=== PATIENT | male | born 1965 | race African-American/Black ===

== ENCOUNTER 2021-05-18 14:39 | Inpatient (IN) | payer OTHER ==
[~2021-05-18] VITALS: Ht 203.2 cm; Wt 130.9 kg
[2021-05-18 15:10] LABS: BASO % 0 % (0-3); EOS % 0 % (0-3); HEMATOCRIT 40.8 % (39.0-53.0); HEMOGLOBIN 13.8 g/dL (13.0-17.5); LYMPH # 0.6 x10^3/uL (1.0-4.8); LYMPH % 6 % (24-48); MEAN CORPUSCULAR HEMOGLOBIN 29 pg (25-35); MEAN CORPUSCULAR HGB CONC 34 g/dL (31-37); MEAN CORPUSCULAR VOLUME 85 fL (79-100); MONO # 0.6 x10^3/uL (0.0-1.1); MONO % 6 % (0-9); NEUT # 8.7 x10^3/uL (1.8-7.7); NEUT % 88 % (31-73); PLATELET COUNT 219 x10^3/uL (140-400); RED BLOOD COUNT 4.79 x10^6/uL (4.30-5.70); RED CELL DISTRIBUTION WIDTH 14.9 % (11.5-14.5)
--- NOTE | 2021-05-18 15:12 | RAD ---
EXAM: AP View of the chest DATE: 05/18/2021 2:56 PM INDICATION: Reason: SOAK, COVID-19 INFECTION / Spl. Instructions: / History: COMPARISON: No Prior FINDINGS/ IMPRESSION: 1. Heart is not enlarged. Aorta is tortuous. 2. Diffuse bilateral parenchymal airspace opacities likely consolidative process such as pneumonia. Covid pneumonia could have this appearance. 3. No pleural effusion or pneumothorax. Electronically signed by: Valeriano Dove MD (05/18/2021 3:10 PM) [facility]
[2021-05-18 15:19] LABS: CALCIUM 9.2 mg/dL (8.5-10.1); CREATININE 1.6 mg/dL (0.7-1.3); GFR 54.4; POTASSIUM 4.2 mmol/L (3.5-5.1)
[2021-05-18 15:25] LABS: ALBUMIN 3.1 g/dL (3.4-5.0); ALBUMIN/GLOBULIN RATIO 0.6 (1.0-1.7); MAGNESIUM 2.2 mg/dL (1.8-2.4); TOTAL BILIRUBIN 0.4 mg/dL (0.2-1.0); TOTAL PROTEIN 8.3 g/dL (6.4-8.2)
[2021-05-18] MEDS ORDERED: cefTRIAXone IV Push 1 GM VIAL. IVP ONE (15:30)
[2021-05-18] MEDS ORDERED: AZITHRMYCN 500MG IVPB FOR OMNI 250 ML IV ONE (15:30)
[2021-05-18] MEDS ORDERED: DEXAMETHASONE SOD PHOS 4 MG/ML VIAL IVP ONE (15:30)
--- NOTE | 2021-05-18 15:56 | PHYS DOC ---
Past Medical History Past Surgical History: Other Additional Past Surgical Histo: X1 STENT, X5 RT KNEE SX, X3 LT KNEE SX, X3 RT FOOT SX, X2 LT FOOT SX Smoking Status: Never Smoker Alcohol Use: None General Adult EDM: Chief Complaint: SHORTNESS OF BREATH HPI: HPI: Patient is a 55 year old male who present to ER with a history of 2 weeks cough and trouble breathing. Patient was not vaccinated for COVID-19. Patient was diagnosed with COVID-19 on , he was seen at [facility], was tested positive for COVID-19. Patient came in today because of worsening trouble breathing. His oxygen saturation was 87% on room air. Patient denies history of diabetic, denies history of smoking denies history of COPD, not on oxygen at home. Review of Systems: Review of Systems: Constitutional: Denies fever or chills. [] Eyes: Denies change in visual acuity. [] HENT: Denies nasal congestion or sore throat. [] Respiratory: Positive for cough and shortness of breath. [] Cardiovascular: Denies chest pain or edema. [] GI: Denies abdominal pain, nausea, vomiting, bloody stools or diarrhea. [] : Denies dysuria. [] Musculoskeletal: Denies back pain or joint pain. [] Integument: Denies rash. [] Neurologic: Denies headache, focal weakness or sensory changes. [] Endocrine: Denies polyuria or polydipsia. [] Lymphatic: Denies swollen glands. [] Psychiatric: Denies depression or anxiety. [] Heart Score: C/O Chest Pain: N/A Risk Factors: Risk Factors: DM, Current or recent (<one month) smoker, HTN, HLP, family history of CAD, obesity. Risk Scores: Score 0 - 3: 2.5% MACE over next 6 weeks - Discharge Home Score 4 - 6: 20.3% MACE over next 6 weeks - Admit for Clinical Observation Score 7 - 10: 72.7% MACE over next 6 weeks - Early Invasive Strategies Current Medications: Current Medications Medications (Trade) Dose Ordered Sig/Kerri Start Time Stop Time Status Last Admin Dose Admin Azithromycin 250 ml @ 250 mls/hr 1X ONCE 05/18/21 15:30 05/18/21 16:29 Ceftriaxone Sodium (Rocephin) 1 gm 1X ONCE 05/18/21 15:30 05/18/21 15:31 DC Dexamethasone Sodium Phosphate (Decadron) 10 mg 1X ONCE 05/18/21 15:30 05/18/21 15:31 DC Allergies: Allergies: Allergies Coded Allergies Type Severity Reaction Last Updated Verified lisinopril Allergy Intermediate angioedema 05/18/21 Yes ibuprofen Adverse Reaction Mild upset stomach 05/18/21 Yes Physical Exam: PE: Constitutional: Well developed, well nourished, mild acute distress, non-toxic appearance. [] HENT: Normocephalic, atraumatic, bilateral external ears normal, oropharynx moist, no oral exudates, nose normal. [] Eyes: PERRLA, EOMI, conjunctiva normal, no discharge. [] Neck: Normal range of motion, no tenderness, supple, no stridor. [] Cardiovascular:Heart rate regular rhythm, no murmur [] Lungs & Thorax: Bilateral breath sounds with decrease air movement and diffuse crackles to auscultation [] Abdomen: Bowel sounds normal, soft, no tenderness, no masses, no pulsatile masses. [] Skin: Warm, dry, no erythema, no rash. [] Back: No tenderness, no CVA tenderness. [] Extremities: No tenderness, no cyanosis, no clubbing, ROM intact, no edema. [] Neurologic: Alert and oriented X 3, normal motor function, normal sensory function, no focal deficits noted. [] Psychologic: Affect normal, judgement normal, mood normal. [] Current Patient Data: Labs: Laboratory Tests Test 05/18/21 15:00 White Blood Count 10.0 x10^3/uL Red Blood Count 4.79 x10^6/uL Hemoglobin 13.8 g/dL Hematocrit 40.8 % Mean Corpuscular Volume 85 fL Mean Corpuscular Hemoglobin 29 pg Mean Corpuscular Hemoglobin Concent 34 g/dL Red Cell Distribution Width 14.9 % Platelet Count 219 x10^3/uL Neutrophils (%) (Auto) 88 % Lymphocytes (%) (Auto) 6 % Monocytes (%) (Auto) 6 % Eosinophils (%) (Auto) 0 % Basophils (%) (Auto) 0 % Neutrophils # (Auto) 8.7 x10^3/uL Lymphocytes # (Auto) 0.6 x10^3/uL Monocytes # (Auto) 0.6 x10^3/uL Eosinophils # (Auto) 0.0 x10^3/uL Basophils # (Auto) 0.0 x10^3/uL Platelet Estimate Pending Sodium Level 138 mmol/L Potassium Level 4.2 mmol/L Chloride Level 102 mmol/L Carbon Dioxide Level 28 mmol/L Anion Gap 8 Blood Urea Nitrogen 30 mg/dL Creatinine 1.6 mg/dL Estimated GFR (Cockcroft-Gault) 54.4 BUN/Creatinine Ratio 19 Glucose Level 104 mg/dL Lactic Acid Level 1.1 mmol/L Calcium Level 9.2 mg/dL Magnesium Level 2.2 mg/dL Total Bilirubin 0.4 mg/dL Aspartate Amino Transf (AST/SGOT) 29 U/L Alanine Aminotransferase (ALT/SGPT) 22 U/L Alkaline Phosphatase 51 U/L Troponin I Quantitative < 0.017 ng/mL OF-Jqm-F-Type Natriuretic Peptide 50 pg/mL Total Protein 8.3 g/dL Albumin 3.1 g/dL Albumin/Globulin Ratio 0.6 Current Medications Medications (Trade) Dose Ordered Sig/Kerri Route PRN Reason Start Time Stop Time Status Last Admin Dose Admin Dexamethasone Sodium Phosphate (Decadron) 10 mg 1X ONCE IVP 05/18/21 15:30 05/18/21 15:31 DC Ceftriaxone Sodium (Rocephin) 1 gm 1X ONCE IVP 05/18/21 15:30 05/18/21 15:31 DC Azithromycin 250 ml @ 250 mls/hr 1X ONCE IV 05/18/21 15:30 05/18/21 16:29 Laboratory Tests Test 05/18/21 15:00 White Blood Count 10.0 x10^3/uL (4.0-11.0) Red Blood Count 4.79 x10^6/uL (4.30-5.70) Hemoglobin 13.8 g/dL (13.0-17.5) Hematocrit 40.8 % (39.0-53.0) Mean Corpuscular Volume 85 fL (79-100) Mean Corpuscular Hemoglobin 29 pg (25-35) Mean Corpuscular Hemoglobin Concent 34 g/dL (31-37) Red Cell Distribution Width 14.9 % (11.5-14.5) H Platelet Count 219 x10^3/uL (140-400) Neutrophils (%) (Auto) 88 % (31-73) H Lymphocytes (%) (Auto) 6 % (24-48) L Monocytes (%) (Auto) 6 % (0-9) Eosinophils (%) (Auto) 0 % (0-3) Basophils (%) (Auto) 0 % (0-3) Neutrophils # (Auto) 8.7 x10^3/uL (1.8-7.7) H Lymphocytes # (Auto) 0.6 x10^3/uL (1.0-4.8) L Monocytes # (Auto) 0.6 x10^3/uL (0.0-1.1) Eosinophils # (Auto) 0.0 x10^3/uL (0.0-0.7) Basophils # (Auto) 0.0 x10^3/uL (0.0-0.2) Platelet Estimate Pending Sodium Level 138 mmol/L (136-145) Potassium Level 4.2 mmol/L (3.5-5.1) Chloride Level 102 mmol/L (98-107) Carbon Dioxide Level 28 mmol/L (21-32) Anion Gap 8 (6-14) Blood Urea Nitrogen 30 mg/dL (8-26) H Creatinine 1.6 mg/dL (0.7-1.3) H Estimated GFR (Cockcroft-Gault) 54.4 BUN/Creatinine Ratio 19 (6-20) Glucose Level 104 mg/dL (70-99) H Lactic Acid Level 1.1 mmol/L (0.4-2.0) Calcium Level 9.2 mg/dL (8.5-10.1) Magnesium Level 2.2 mg/dL (1.8-2.4) Total Bilirubin 0.4 mg/dL (0.2-1.0) Aspartate Amino Transferase (AST) 29 U/L (15-37) Alanine Aminotransferase (ALT) 22 U/L (16-63) Alkaline Phosphatase 51 U/L (46-116) Troponin I Quantitative < 0.017 ng/mL (0.000-0.055) JR-Hzj-R-Type Natriuretic Peptide 50 pg/mL (0-124) Total Protein 8.3 g/dL (6.4-8.2) H Albumin 3.1 g/dL (3.4-5.0) L Albumin/Globulin Ratio 0.6 (1.0-1.7) L Laboratory Tests 05/18/21 15:00 Laboratory Tests 05/18/21 15:00 Vital Signs: Vital Signs Date Time Temp Pulse Resp B/P (MAP) Pulse Ox O2 Delivery O2 Flow Rate FiO2 05/18/21 15:00 98.7 78 35 128/75 87 Room Air 98.7 EKG: EKG: [] Radiology/Procedures: Radiology/Procedures: [][facility] [address] [place] [address] IMAGING REPORT Signed PATIENT: SRIDHAR PEREZ ACCOUNT: [id number] : 1965 LOCATION: ER AGE: 55 SEX: M EXAM STATUS: REG ER ORD. PHYSICIAN: ERIKA GROSSMAN DO REASON: SOAK, COVID-19 INFECTION PROCEDURE: CHEST AP ONLY EXAM: AP View of the chest DATE: 05/18/2021 2:56 PM INDICATION: Reason: SOAK, COVID-19 INFECTION / Spl. Instructions: / History: COMPARISON: No Prior FINDINGS/ IMPRESSION: 1. Heart is not enlarged. Aorta is tortuous. 2. Diffuse bilateral parenchymal airspace opacities likely consolidative process such as pneumonia. Covid pneumonia could have this appearance. 3. No pleural effusion or pneumothorax. Electronically signed by: Valeriano Palacios MD (05/18/2021 3:10 PM) [facility] DICTATED and SIGNED BY: VALERIANO PALACIOS MD DATE: 05/18/21 [id number] 0 Course & Med Decision Making: Course & Med Decision Making Pertinent Labs and Imaging studies reviewed. (See chart for details) Patient is a 55-year-old male who present to ER with 2-week history of cough, trouble breathing. Patient was diagnosed with COVID-19 infection 4 days ago at the [facility], came to ER today because of worsening trouble breathing. Patient oxygen saturation is 88% on room air, his chest x-ray showed diffuse bilateral infiltration consistent with COVID-19 pneumonia. Patient will need to be admitted to hospital for further evaluation and treatment. Discussed with the hospitalist on-call Dr. Siddiqui who agreed to admit the patient. Campbell Disclaimer: Campbell Disclaimer: This electronic medical record was generated, in whole or in part, using a voice recognition dictation system. Departure Departure Impression: Primary Impression: Pneumonia due to COVID-19 virus Additional Impression: Hypoxia Disposition: ADMITTED INPATIENT Admitting Physician: CHRISTIAN (Dr. Siddiqui) Condition: IMPROVED Referrals: RYAN BAÑUELOS MD (PCP) ERIKA GROSSMAN DO May 18, 2021 15:56
[2021-05-18] MEDS ORDERED: ONDANSETRON PF 4 MG/2 ML VIAL. IVP PRN (16:00)
--- NOTE | 2021-05-18 16:05 | EKG ---
[facility] [address] [place] [address] Test Date: 2021-05-18 Test Time: 15:09:30 Pat Name: SRIDHAR PEREZ Department: Room: Gender: M [employer]: : 1965 Requested By: ERIKA GROSSMAN Order Number: [id number] Reading MD: Measurements Intervals [place] Rate: 77 P: 8 CO: 158 QRS: 13 QRSD: 92 T: 13 QT: 394 QTc: 448 Interpretive Statements SINUS RHYTHM NORMAL ECG RI6.02 No previous ECG available for comparison
[2021-05-18 18:43] LABS: % BANDS 2 % (0-9); % LYMPHS 7 % (24-48); % METAS 1 % (0-0); % MONOS 4 % (0-10); % SEGS 86 % (35-66); PLT ESTIMATE ADEQUATE (ADEQUATE)
[2021-05-18 20:17] LABS: BILIRUBIN,URINE NEGATIVE (NEG); CLARITY,URINE CLEAR; COLOR,URINE YELLOW; NITRITE,URINE NEGATIVE (NEG); PH,URINE 5.5 (<5.0-8.0); PROTEIN,URINE 30 mg/dL (NEG-TRACE); UROBILINOGEN,URINE 0.2 mg/dL (0.2 mg/dL)
[2021-05-18 20:23] LABS: BACTERIA,URINE 0 /HPF (0-FEW); WBC,URINE OCC /HPF (0-4)
[2021-05-18 20:30] VITALS: BP 114/67
[2021-05-18] MEDS ORDERED: SERT50TA PO (21:22)
[2021-05-18] MEDS ORDERED: percocet (21:22)
[2021-05-18] MEDS ORDERED: TOPI50TA8 PO (21:22)
[2021-05-18] MEDS ORDERED: MELA10CA PO (21:22)
[2021-05-18] MEDS ORDERED: ASPI-630 PO (21:22)
[2021-05-18] MEDS ORDERED: ALBU2.5V8 IH (21:22)
[2021-05-18] MEDS ORDERED: BENZ100C PO (21:22)
[2021-05-18] MEDS ORDERED: AMLO-187 PO (21:22)
[2021-05-18] MEDS ORDERED: ALLO100T PO (21:22)
[2021-05-18] MEDS ORDERED: tramadol (21:22)
[2021-05-18] MEDS ORDERED: ALBUTEROL SULFATE 2.5 MG/3 ML NEBU. INH PRN (21:30)
[2021-05-18] MEDS ORDERED: HYDR-2763 PO (21:36)
[2021-05-18] MEDS ORDERED: ALBUTEROL SULFATE 8GM INHALER. INH PRN (21:45)
[2021-05-18] MEDS: guaiFENesin DM 600/30MG 1 TAB TAB.ER.12H PO PRN (22:49)
[2021-05-18] MEDS: HYDROcodone/APAP 7.5/325MG 1 TAB TABLET PO PRN (22:50)
[2021-05-18 23:00] VITALS: BP 110/55
[2021-05-19] VITALS (7 sets, daily range): BP systolic 108–145; BP diastolic 57–85
--- NOTE | 2021-05-19 07:51 | PDOC1 ---
History and Physical Date of Service: DOS: DATE: 05/19/21 TIME: 07:46 Chief Complaint: Chief Complain: Cough and shortness of breath History of Present Illness: HPI: 55 year old male who present to ER with a history of 2 weeks cough and trouble breathing. Patient was not vaccinated for COVID-19. Patient was diagnosed with COVID-19 on , he was seen at the [facility], was tested positive for COVID-19. Patient came in today because of worsening trouble breathing. His oxygen saturation was 87% on room air. Patient denies history of diabetic, denies history of smoking denies history of COPD, not on oxygen at home. Past Medical/Surgical History: PMH/PSH: Past Surgical History: X1 STENT, X5 RT KNEE SX, X3 LT KNEE SX, X3 RT FOOT SX, X2 LT FOOT SX Allergies: Allergies: Coded Allergies: lisinopril (Verified Allergy, Intermediate, angioedema, 05/18/21) ibuprofen (Verified Adverse Reaction, Mild, upset stomach, 05/18/21) Family History: Family History: Reviewed with no relevant findings Social History: Social History: Smoking Status: Never Smoker Alcohol Use: None Current Medications: Current Medications Current Medications Dexamethasone Sodium Phosphate (Decadron) 10 mg 1X ONCE IVP Last administered on 05/18/21at 16:02; Start 05/18/21 at 15:30; Stop 05/18/21 at 15:31; Status DC Ceftriaxone Sodium (Rocephin) 1 gm 1X ONCE IVP Last administered on 05/18/21at 16:04; Start 05/18/21 at 15:30; Stop 05/18/21 at 15:31; Status DC Azithromycin 250 ml @ 250 mls/hr 1X ONCE IV Last administered on 05/18/21at 16:11; Start 05/18/21 at 15:30; Stop 05/18/21 at 16:29; Status DC Ondansetron HCl (Zofran) 4 mg PRN Q8HRS PRN IVP NAUSEA/VOMITING; Start 05/18/21 at 16:00; Stop 05/19/21 at 15:59 Albuterol Sulfate (Ventolin Neb Soln) 2 mg Q4HRS W/A PRN INH wheezing; Start 05/18/21 at 21:30; Stop 05/18/21 at 21:42; Status DC Allopurinol (Zyloprim) 100 mg BID PO ; Start 05/19/21 at 09:00 Amlodipine Besylate (Norvasc) 10 mg DAILY PO ; Start 05/19/21 at 09:00 Aspirin (Aspirin Chewable) 81 mg DAILY PO ; Start 05/19/21 at 09:00 Sertraline HCl (Zoloft) 50 mg DAILY PO ; Start 05/19/21 at 09:00 Non-Formulary Medication (Melatonin ) 1 cap QHS PO ; Start 05/19/21 at 21:00; Status UNV Topiramate (Topamax) 150 mg HS PO ; Start 05/19/21 at 21:00 Guaifenesin (MUCINEX ER with DM) 1 tab PRN BID PRN PO cough Last administered on 05/18/21at 22:49; Start 05/18/21 at 21:45 Albuterol Sulfate (Ventolin Hfa) 2 puff PRN Q4HRS PRN INH SOA Last administered on 05/18/21at 22:49; Start 05/18/21 at 21:45 Acetaminophen/ Hydrocodone Bitart (Lortab 7.5/325) 1 tab PRN Q6HRS PRN PO PAIN Last administered on 05/18/21at 22:50; Start 05/18/21 at 22:30 Active Scripts Active Reported Hydrocodone-Acetamin 7.5-325 (Hydrocodone/Acetaminophen) 1 Each Tablet 1 Each PO Q6HRS PRN [percocet] Unknown Strength Unknown Dose [tramadol] Unknown Strength Unknown Dose Melatonin 10 Mg Capsule 1 Cap PO QHS 30 Days Topiramate 50 Mg Tablet 3 Tab PO HS 30 Days Zoloft (Sertraline Hcl) 50 Mg Tablet 1 Tab PO DAILY Amlodipine Besylate 10 Mg Tablet 10 Mg PO DAILY Allopurinol 100 Mg Tablet 1 Tab PO BID Tessalon Perle (Benzonatate) 100 Mg Capsule 1 Cap PO DAILY Proair Hfa Inhaler (Albuterol Sulfate) 8.5 Gm Hfa.aer.ad 2 Puff IH PRN Q4-6HRS PRN 21 Days Aspirin 81 Mg Tab.chew 81 Mg PO DAILY ROS: Review of Systems Review of System REVIEW OF SYSTEMS: GENERAL: Denies weakness SKIN: No bruising, hair changes or rashes. EYES: No blurred, double or loss of vision. NOSE AND THROAT: No history of nosebleeds, hoarseness or sore throat. HEART: No history of palpitations, chest pain or shortness of breath on exertion. LUNGS: Denies cough, hemoptysis, wheezing or shortness of breath. GASTROINTESTINAL: Denies changes in appetite, nausea, vomiting, diarrhea or constipation. GENITOURINARY: No history of frequency, urgency, hesitancy or nocturia. NEUROLOGIC: Denies history of numbness, tingling, or tremor. PSYCHIATRIC: No history of panic, anxiety or depression. ENDOCRINE: No history of heat or cold intolerance, polyuria or polydipsia. EXTREMITIES: Denies joint pain, pain on walking or stiffness. Physical Exam: Vital Signs: Vital Signs Date Time Temp Pulse Resp B/P (MAP) Pulse Ox O2 Delivery O2 Flow Rate FiO2 05/19/21 03:00 98.5 65 24 108/57 (74) 99 Nasal Cannula 4.0 98.5 Physcial Exam: General: Well developed, well nourished, no acute distress, well appearing HEENT: Pupils equally round and reactive to light, EOMI, no discharge, normal conjunctiva Neck: Supple, no nuchal rigidity, no JVD, trachea midline, no tenderness Cardiac: RRR, no murmurs, no gallops, no rubs Chest/Lungs: CTAB, no wheeze, no rhonchi, no crackles Abdomen: soft, non-distended, no guarding, no peritoneal signs, non-tender Back: No tenderness Extremities: no edema, pulses intact, non-tender,capillary refill <3 sec bilateral upper and lower extremities, Neuro: Alert and oriented x 4, no focal deficits, normal speech Labs: Labs: Laboratory Tests Test 05/18/21 15:00 05/18/21 20:05 White Blood Count 10.0 x10^3/uL (4.0-11.0) Red Blood Count 4.79 x10^6/uL (4.30-5.70) Hemoglobin 13.8 g/dL (13.0-17.5) Hematocrit 40.8 % (39.0-53.0) Mean Corpuscular Volume 85 fL (79-100) Mean Corpuscular Hemoglobin 29 pg (25-35) Mean Corpuscular Hemoglobin Concent 34 g/dL (31-37) Red Cell Distribution Width 14.9 % (11.5-14.5) Platelet Count 219 x10^3/uL (140-400) Neutrophils (%) (Auto) 88 % (31-73) Lymphocytes (%) (Auto) 6 % (24-48) Monocytes (%) (Auto) 6 % (0-9) Eosinophils (%) (Auto) 0 % (0-3) Basophils (%) (Auto) 0 % (0-3) Neutrophils # (Auto) 8.7 x10^3/uL (1.8-7.7) Lymphocytes # (Auto) 0.6 x10^3/uL (1.0-4.8) Monocytes # (Auto) 0.6 x10^3/uL (0.0-1.1) Eosinophils # (Auto) 0.0 x10^3/uL (0.0-0.7) Basophils # (Auto) 0.0 x10^3/uL (0.0-0.2) Segmented Neutrophils % 86 % (35-66) Band Neutrophils % 2 % (0-9) Lymphocytes % 7 % (24-48) Monocytes % 4 % (0-10) Metamyelocytes % 1 % (0-0) Platelet Estimate Adequate (ADEQUATE) Sodium Level 138 mmol/L (136-145) Potassium Level 4.2 mmol/L (3.5-5.1) Chloride Level 102 mmol/L (98-107) Carbon Dioxide Level 28 mmol/L (21-32) Anion Gap 8 (6-14) Blood Urea Nitrogen 30 mg/dL (8-26) Creatinine 1.6 mg/dL (0.7-1.3) Estimated GFR (Cockcroft-Gault) 54.4 BUN/Creatinine Ratio 19 (6-20) Glucose Level 104 mg/dL (70-99) Lactic Acid Level 1.1 mmol/L (0.4-2.0) Calcium Level 9.2 mg/dL (8.5-10.1) Magnesium Level 2.2 mg/dL (1.8-2.4) Total Bilirubin 0.4 mg/dL (0.2-1.0) Aspartate Amino Transf (AST/SGOT) 29 U/L (15-37) Alanine Aminotransferase (ALT/SGPT) 22 U/L (16-63) Alkaline Phosphatase 51 U/L (46-116) Troponin I Quantitative < 0.017 ng/mL (0.000-0.055) PB-Qty-J-Type Natriuretic Peptide 50 pg/mL (0-124) Total Protein 8.3 g/dL (6.4-8.2) Albumin 3.1 g/dL (3.4-5.0) Albumin/Globulin Ratio 0.6 (1.0-1.7) Urine Collection Type Unknown Urine Color Yellow Urine Clarity Clear Urine pH 5.5 (<5.0-8.0) Urine Specific Lynn 1.025 (1.000-1.030) Urine Protein 30 mg/dL (NEG-TRACE) Urine Glucose (UA) Negative mg/dL (NEG) Urine Ketones (Stick) Negative mg/dL (NEG) Urine Blood Trace (NEG) Urine Nitrite Negative (NEG) Urine Bilirubin Negative (NEG) Urine Urobilinogen Dipstick 0.2 mg/dL (0.2 mg/dL) Urine Leukocyte Esterase Negative (NEG) Urine RBC 1-2 /HPF (0-2) Urine WBC Occ /HPF (0-4) Urine Squamous Epithelial Cells Occ /LPF Urine Bacteria 0 /HPF (0-FEW) Urine Mucus Mod /LPF Laboratory Tests Test 05/18/21 15:00 05/18/21 20:05 White Blood Count 10.0 x10^3/uL (4.0-11.0) Red Blood Count 4.79 x10^6/uL (4.30-5.70) Hemoglobin 13.8 g/dL (13.0-17.5) Hematocrit 40.8 % (39.0-53.0) Mean Corpuscular Volume 85 fL (79-100) Mean Corpuscular Hemoglobin 29 pg (25-35) Mean Corpuscular Hemoglobin Concent 34 g/dL (31-37) Red Cell Distribution Width 14.9 % (11.5-14.5) Platelet Count 219 x10^3/uL (140-400) Neutrophils (%) (Auto) 88 % (31-73) Lymphocytes (%) (Auto) 6 % (24-48) Monocytes (%) (Auto) 6 % (0-9) Eosinophils (%) (Auto) 0 % (0-3) Basophils (%) (Auto) 0 % (0-3) Neutrophils # (Auto) 8.7 x10^3/uL (1.8-7.7) Lymphocytes # (Auto) 0.6 x10^3/uL (1.0-4.8) Monocytes # (Auto) 0.6 x10^3/uL (0.0-1.1) Eosinophils # (Auto) 0.0 x10^3/uL (0.0-0.7) Basophils # (Auto) 0.0 x10^3/uL (0.0-0.2) Segmented Neutrophils % 86 % (35-66) Band Neutrophils % 2 % (0-9) Lymphocytes % 7 % (24-48) Monocytes % 4 % (0-10) Metamyelocytes % 1 % (0-0) Platelet Estimate Adequate (ADEQUATE) Sodium Level 138 mmol/L (136-145) Potassium Level 4.2 mmol/L (3.5-5.1) Chloride Level 102 mmol/L (98-107) Carbon Dioxide Level 28 mmol/L (21-32) Anion Gap 8 (6-14) Blood Urea Nitrogen 30 mg/dL (8-26) Creatinine 1.6 mg/dL (0.7-1.3) Estimated GFR (Cockcroft-Gault) 54.4 BUN/Creatinine Ratio 19 (6-20) Glucose Level 104 mg/dL (70-99) Lactic Acid Level 1.1 mmol/L (0.4-2.0) Calcium Level 9.2 mg/dL (8.5-10.1) Magnesium Level 2.2 mg/dL (1.8-2.4) Total Bilirubin 0.4 mg/dL (0.2-1.0) Aspartate Amino Transf (AST/SGOT) 29 U/L (15-37) Alanine Aminotransferase (ALT/SGPT) 22 U/L (16-63) Alkaline Phosphatase 51 U/L (46-116) Troponin I Quantitative < 0.017 ng/mL (0.000-0.055) DX-Ndk-G-Type Natriuretic Peptide 50 pg/mL (0-124) Total Protein 8.3 g/dL (6.4-8.2) Albumin 3.1 g/dL (3.4-5.0) Albumin/Globulin Ratio 0.6 (1.0-1.7) Urine Collection Type Unknown Urine Color Yellow Urine Clarity Clear Urine pH 5.5 (<5.0-8.0) Urine Specific Lynn 1.025 (1.000-1.030) Urine Protein 30 mg/dL (NEG-TRACE) Urine Glucose (UA) Negative mg/dL (NEG) Urine Ketones (Stick) Negative mg/dL (NEG) Urine Blood Trace (NEG) Urine Nitrite Negative (NEG) Urine Bilirubin Negative (NEG) Urine Urobilinogen Dipstick 0.2 mg/dL (0.2 mg/dL) Urine Leukocyte Esterase Negative (NEG) Urine RBC 1-2 /HPF (0-2) Urine WBC Occ /HPF (0-4) Urine Squamous Epithelial Cells Occ /LPF Urine Bacteria 0 /HPF (0-FEW) Urine Mucus Mod /LPF Images: Images PROCEDURE: CHEST AP ONLY IMPRESSION: 1. Heart is not enlarged. Aorta is tortuous. 2. Diffuse bilateral parenchymal airspace opacities likely consolidative process such as pneumonia. Covid pneumonia could have this appearance. 3. No pleural effusion or pneumothorax. Assessment/Plan Assessment/Plan Acute hypoxic respiratory failure COVID-19 pneumonia DARIANA due to vasomotor nephropathy Obesity class I Admit to hospitalist service for further management Pulmonology consult Continue IV thiamine and vitamin C IV Solu-Medrol Daily Pending ferritin, LDH, CRP, D-dimer labs Titrate O2 supplementation to maintain O2 saturation greater than 92% Lovenox for DVT prophylaxis Protonix while on steroids GI prophylaxis ADA diet Full code Discussed with RN and SW Disposition inpatient management as above Surrogate decision maker is the Justifications for Admission Other Justification NESTOR THEODORE MD May 19, 2021 07:51
[2021-05-19] MEDS ORDERED: PROCHLORPERAZINE 10 MG/2 ML VIAL. IV PRN (08:00)
[2021-05-19] MEDS ORDERED: DEXTROSE 50% 25 GM / 50ML DISP.SYRIN. IV PRN (08:00)
[2021-05-19] MEDS ORDERED: ONDANSETRON PF 4 MG/2 ML VIAL. IVP PRN (08:00)
[2021-05-19] MEDS ORDERED: ACETAMINOPHEN 325 MG TABLET. PO PRN (08:00)
[2021-05-19] MEDS: ASPIRIN CHEWABLE 81 MG TABLET. PO SCH (09:54)
[2021-05-19] MEDS: THIAMINE 100 MG TABLET. PO SCH (09:54)
[2021-05-19] MEDS: DOCUSATE SODIUM 100 MG CAPSULE. PO PRN (09:54)
[2021-05-19] MEDS: methylPREDNISolone SOD SUCC PF 125 MG/2 ML VIAL. IV SCH ×3 (09:54→21:37)
[2021-05-19] MEDS: ALLOPURINOL 100 MG TABLET. PO SCH ×2 (09:55→21:36)
[2021-05-19] MEDS: ASCORBIC ACID 1,000 MG TABLET PO SCH ×3 (09:55→21:36)
[2021-05-19] MEDS: ZINC SULFATE 220 MG CAPSULE. PO SCH (09:55)
[2021-05-19] MEDS: SERTRALINE 50 MG TABLET. PO SCH (09:55)
[2021-05-19] MEDS: guaiFENesin DM 600/30MG 1 TAB TAB.ER.12H PO PRN (09:55)
[2021-05-19] MEDS: ENOXAPARIN 40 MG/0.4 ML SYRINGE. SQ SCH (09:56)
--- NOTE | 2021-05-19 11:47 | NUR ---
SW following. Discussed with RN, pt from home with , 5L (does not use oxygen at home), regular diet. COVID-19 positive. RN advised no SW needs at this time. SW will continue to follow.
[2021-05-19] MEDS: PANTOPRAZOLE 40 MG TABLET.DR. PO SCH (14:37)
[2021-05-19] MEDS ORDERED: NON FORMULARY ITEM (Melatonin 1 CAP) PO SCH (21:00)
[2021-05-19] MEDS: TOPIRAMATE 100 MG TABLET. PO SCH (21:36)
[2021-05-20 03:00] VITALS: BP 113/64
[2021-05-20] MEDS: methylPREDNISolone SOD SUCC PF 125 MG/2 ML VIAL. IV SCH ×3 (05:49→22:10)
[2021-05-20 07:00] VITALS: BP 136/63
[2021-05-20 07:09] LABS: BASO % 0 % (0-3); EOS % 0 % (0-3); HEMATOCRIT 38.9 % (39.0-53.0); HEMOGLOBIN 12.7 g/dL (13.0-17.5); LYMPH # 0.8 x10^3/uL (1.0-4.8); LYMPH % 5 % (24-48); MEAN CORPUSCULAR HEMOGLOBIN 28 pg (25-35); MEAN CORPUSCULAR HGB CONC 33 g/dL (31-37); MEAN CORPUSCULAR VOLUME 86 fL (79-100); MONO # 0.9 x10^3/uL (0.0-1.1); MONO % 6 % (0-9); NEUT # 14.2 x10^3/uL (1.8-7.7); NEUT % 89 % (31-73); PLATELET COUNT 257 x10^3/uL (140-400); RED BLOOD COUNT 4.54 x10^6/uL (4.30-5.70); RED CELL DISTRIBUTION WIDTH 15.3 % (11.5-14.5); WHITE BLOOD COUNT 15.9 x10^3/uL (4.0-11.0)
[2021-05-20 07:27] LABS: CALCIUM 9.4 mg/dL (8.5-10.1); CREATININE 1.4 mg/dL (0.7-1.3); GFR 63.4; MAGNESIUM 2.4 mg/dL (1.8-2.4); PHOSPHORUS 4.2 mg/dL (2.6-4.7); POTASSIUM 4.6 mmol/L (3.5-5.1)
[2021-05-20] MEDS: SERTRALINE 50 MG TABLET. PO SCH (08:57)
[2021-05-20] MEDS: ZINC SULFATE 220 MG CAPSULE. PO SCH (08:57)
[2021-05-20] MEDS: ASCORBIC ACID 1,000 MG TABLET PO SCH ×3 (08:57→22:10)
[2021-05-20] MEDS: ASPIRIN CHEWABLE 81 MG TABLET. PO SCH (08:57)
[2021-05-20] MEDS: THIAMINE 100 MG TABLET. PO SCH (08:57)
[2021-05-20] MEDS: PANTOPRAZOLE 40 MG TABLET.DR. PO SCH (08:58)
[2021-05-20] MEDS: ENOXAPARIN 40 MG/0.4 ML SYRINGE. SQ SCH (08:58)
[2021-05-20] MEDS: HYDROcodone/APAP 7.5/325MG 1 TAB TABLET PO PRN (08:58)
[2021-05-20] MEDS: ALLOPURINOL 100 MG TABLET. PO SCH ×2 (08:59→22:11)
[2021-05-20 11:00] VITALS: BP 121/60
[2021-05-20] MEDS ORDERED: REMDESIVIR LOAD in IV NORMAL SALINE 250ML TV IV ONE (12:00)
--- NOTE | 2021-05-20 13:12 | PDOC ---
[employer] PROGRESS NOTE Date of Service DOS: DATE: 05/20/21 TIME: 13:10 Chief Complaint Chief Complaint Acute hypoxic respiratory failure COVID-19 pneumonia DARIANA due to vasomotor nephropathy Obesity class I Initiate Remdesivir today Pulmonology consult Continue IV thiamine and vitamin C IV Solu-Medrol Daily Pending ferritin, LDH, CRP, D-dimer labs Titrate O2 supplementation to maintain O2 saturation greater than 92% Lovenox for DVT prophylaxis Protonix while on steroids GI prophylaxis ADA diet Full code Discussed with RN and SW Disposition inpatient management as above Surrogate decision maker is the History of Present Illness History of Present Illness 55 year old male who present to ER with a history of 2 weeks cough and trouble breathing. Patient was not vaccinated for COVID-19. Patient was diagnosed with COVID-19 on , he was seen at the [place], was tested positive for COVID-19. Patient came in today because of worsening trouble breathing. His oxygen saturation was 87% on room air. Patient denies history of diabetic, denies history of smoking denies history of COPD, not on oxygen at home. 05/20/2021 No acute events overnight. Patient now requiring 8 L nasal cannula to saturate 97%. Patient is more short of breath. Remdesivir initiated. No concerns natalie sing at this time. Patient's chart, labs, images were reviewed and discussed with RN Vitals/I&O Vitals/I&O: Vital Signs Date Time Temp Pulse Resp B/P (MAP) Pulse Ox O2 Delivery O2 Flow Rate FiO2 05/20/21 11:00 98.1 67 18 121/60 (80) 98 Nasal Cannula 8.0 98.1 I & O 05/19/21 05/19/21 05/20/21 15:00 23:00 07:00 Intake Total 120 ml 300 ml 500 ml Output Total 300 ml Balance 120 ml 300 ml 200 ml Physical Exam General: Alert, Oriented X3, Cooperative Heart: Regular rate Lungs: Clear Abdomen: Normal bowel sounds Extremities: No clubbing Skin: No rashes Labs Labs: Laboratory Tests Test 05/20/21 06:45 White Blood Count 15.9 x10^3/uL (4.0-11.0) Red Blood Count 4.54 x10^6/uL (4.30-5.70) Hemoglobin 12.7 g/dL (13.0-17.5) Hematocrit 38.9 % (39.0-53.0) Mean Corpuscular Volume 86 fL (79-100) Mean Corpuscular Hemoglobin 28 pg (25-35) Mean Corpuscular Hemoglobin Concent 33 g/dL (31-37) Red Cell Distribution Width 15.3 % (11.5-14.5) Platelet Count 257 x10^3/uL (140-400) Neutrophils (%) (Auto) 89 % (31-73) Lymphocytes (%) (Auto) 5 % (24-48) Monocytes (%) (Auto) 6 % (0-9) Eosinophils (%) (Auto) 0 % (0-3) Basophils (%) (Auto) 0 % (0-3) Neutrophils # (Auto) 14.2 x10^3/uL (1.8-7.7) Lymphocytes # (Auto) 0.8 x10^3/uL (1.0-4.8) Monocytes # (Auto) 0.9 x10^3/uL (0.0-1.1) Eosinophils # (Auto) 0.0 x10^3/uL (0.0-0.7) Basophils # (Auto) 0.0 x10^3/uL (0.0-0.2) Sodium Level 140 mmol/L (136-145) Potassium Level 4.6 mmol/L (3.5-5.1) Chloride Level 105 mmol/L (98-107) Carbon Dioxide Level 27 mmol/L (21-32) Anion Gap 8 (6-14) Blood Urea Nitrogen 34 mg/dL (8-26) Creatinine 1.4 mg/dL (0.7-1.3) Estimated GFR (Cockcroft-Gault) 63.4 Glucose Level 143 mg/dL (70-99) Calcium Level 9.4 mg/dL (8.5-10.1) Phosphorus Level 4.2 mg/dL (2.6-4.7) Magnesium Level 2.4 mg/dL (1.8-2.4) Assessment and Plan Assessmemt and Plan Problems Medical Problems: (1) Hypoxia Status: Acute (2) Pneumonia due to COVID-19 virus Status: Acute Comment Review of Relevant I have reviewed the following items fawn (where applicable) has been applied. Medications: Current Medications Medications (Trade) Dose Ordered Sig/Kerri Route PRN Reason Start Time Stop Time Status Last Admin Dose Admin Topiramate (Topamax) 150 mg HS PO 05/19/21 21:00 05/19/21 21:36 Pantoprazole Sodium (Protonix) 40 mg DAILYAC PO 05/19/21 14:00 05/20/21 08:58 Remdesivir 200 mg/ Sodium Chloride 210 ml @ 210 mls/hr 1X ONCE IV 05/20/21 12:00 05/20/21 12:59 DC 05/20/21 12:04 Justifications for Admission Other Justification COVID-19 pneumonia NESTOR THEODORE MD May 20, 2021 13:12
[2021-05-20 15:00] VITALS: BP 146/67
[2021-05-20 19:00] VITALS: BP 127/84
[2021-05-20] MEDS: TOPIRAMATE 100 MG TABLET. PO SCH (22:11)
[2021-05-20 23:11] VITALS: BP 125/82
[2021-05-21 03:00] VITALS: BP 114/71
[2021-05-21] MEDS: methylPREDNISolone SOD SUCC PF 125 MG/2 ML VIAL. IV SCH ×3 (06:18→21:55)
[2021-05-21 07:00] VITALS: BP 116/75
[2021-05-21 10:26] LABS: BASO % 0 % (0-3); EOS % 0 % (0-3); HEMATOCRIT 42.3 % (39.0-53.0); HEMOGLOBIN 13.9 g/dL (13.0-17.5); LYMPH # 0.7 x10^3/uL (1.0-4.8); LYMPH % 4 % (24-48); MEAN CORPUSCULAR HEMOGLOBIN 28 pg (25-35); MEAN CORPUSCULAR HGB CONC 33 g/dL (31-37); MEAN CORPUSCULAR VOLUME 86 fL (79-100); MONO % 5 % (0-9); NEUT # 16.2 x10^3/uL (1.8-7.7); NEUT % 90 % (31-73); PLATELET COUNT 312 x10^3/uL (140-400); RED BLOOD COUNT 4.92 x10^6/uL (4.30-5.70); RED CELL DISTRIBUTION WIDTH 15.5 % (11.5-14.5); WHITE BLOOD COUNT 17.9 x10^3/uL (4.0-11.0)
[2021-05-21] MEDS: ASCORBIC ACID 1,000 MG TABLET PO SCH ×3 (10:41→21:54)
[2021-05-21] MEDS: ZINC SULFATE 220 MG CAPSULE. PO SCH (10:41)
[2021-05-21] MEDS: ASPIRIN CHEWABLE 81 MG TABLET. PO SCH (10:41)
[2021-05-21] MEDS: THIAMINE 100 MG TABLET. PO SCH (10:41)
[2021-05-21] MEDS: guaiFENesin DM 600/30MG 1 TAB TAB.ER.12H PO PRN (10:41)
[2021-05-21] MEDS: HYDROcodone/APAP 7.5/325MG 1 TAB TABLET PO PRN ×2 (10:42→21:56)
[2021-05-21] MEDS: PANTOPRAZOLE 40 MG TABLET.DR. PO SCH (10:43)
[2021-05-21] MEDS: ALLOPURINOL 100 MG TABLET. PO SCH ×2 (10:44→21:54)
[2021-05-21] MEDS: SERTRALINE 50 MG TABLET. PO SCH (10:44)
[2021-05-21] MEDS: ENOXAPARIN 40 MG/0.4 ML SYRINGE. SQ SCH (10:44)
[2021-05-21] MEDS: DOCUSATE SODIUM 100 MG CAPSULE. PO PRN (10:44)
[2021-05-21 10:49] LABS: CALCIUM 9.8 mg/dL (8.5-10.1); CREATININE 1.5 mg/dL (0.7-1.3); GFR 58.6; MAGNESIUM 2.8 mg/dL (1.8-2.4); POTASSIUM 4.8 mmol/L (3.5-5.1)
[2021-05-21 11:00] VITALS: BP 131/78
[2021-05-21] MEDS: REMDESIVIR 100mg in NORMAL SALINE 250ML X 4 DAYS IV SCH (12:49)
[2021-05-21] MEDS ORDERED: guaiFENesin/CODEINE 100mg/10mg 5 ML LIQUID PO PRN (13:00)
[2021-05-21] MEDS ORDERED: PIP/TAZO PER PHARMACY MC PRN (13:00)
--- NOTE | 2021-05-21 13:12 | PDOC ---
[employer] PROGRESS NOTE Date of Service DOS: DATE: 05/21/21 TIME: 13:11 Chief Complaint Chief Complaint Acute hypoxic respiratory failure COVID-19 pneumonia DARIANA due to vasomotor nephropathy Obesity class I Continue remdesivir Adding Zosyn and azithromycin today Pulmonology consult Continue IV thiamine and vitamin C IV Solu-Medrol Daily Pending ferritin, LDH, CRP, D-dimer labs Titrate O2 supplementation to maintain O2 saturation greater than 92% Lovenox for DVT prophylaxis Protonix while on steroids GI prophylaxis ADA diet Full code Discussed with RN and SW Disposition inpatient management as above Surrogate decision maker is the History of Present Illness History of Present Illness 55 year old male who present to ER with a history of 2 weeks cough and trouble breathing. Patient was not vaccinated for COVID-19. Patient was diagnosed with COVID-19 on , he was seen at the [place], was tested positive for COVID-19. Patient came in today because of worsening trouble breathing. His oxygen saturation was 87% on room air. Patient denies history of diabetic, denies history of smoking denies history of COPD, not on oxygen at home. 05/20/2021 No acute events overnight. Patient now requiring 8 L nasal cannula to saturate 97%. Patient is more short of breath. Remdesivir initiated. No concerns nursing at this time. Patient's chart, labs, images were reviewed and discussed with RN 05/21/12 Patient seen and examined at bedside. He was on 6 L nasal cannula saturating well. Was still feeling more fatigued and just generalized illness. Having some new onset upper abdominal pain, will start Pepcid and as needed GI cocktail. Adding antibiotics today today, repeat chest x-ray, plan of care discussed with resident. Vitals/I&O Vitals/I&O: Vital Signs Date Time Temp Pulse Resp B/P (MAP) Pulse Ox O2 Delivery O2 Flow Rate FiO2 05/21/21 12:00 96 Nasal Cannula 7.0 05/21/21 11:00 97.8 85 18 131/78 (95) 97.8 I & O 05/20/21 05/20/21 05/21/21 15:00 23:00 07:00 Intake Total 610 ml 200 ml 250 ml Output Total 300 ml Balance 610 ml -100 ml 250 ml Physical Exam General: Alert, Oriented X3, Cooperative Heart: Regular rate Lungs: Clear Abdomen: Normal bowel sounds Extremities: No clubbing Skin: No rashes Labs Labs: Laboratory Tests Test 05/21/21 10:05 White Blood Count 17.9 x10^3/uL (4.0-11.0) Red Blood Count 4.92 x10^6/uL (4.30-5.70) Hemoglobin 13.9 g/dL (13.0-17.5) Hematocrit 42.3 % (39.0-53.0) Mean Corpuscular Volume 86 fL (79-100) Mean Corpuscular Hemoglobin 28 pg (25-35) Mean Corpuscular Hemoglobin Concent 33 g/dL (31-37) Red Cell Distribution Width 15.5 % (11.5-14.5) Platelet Count 312 x10^3/uL (140-400) Neutrophils (%) (Auto) 90 % (31-73) Lymphocytes (%) (Auto) 4 % (24-48) Monocytes (%) (Auto) 5 % (0-9) Eosinophils (%) (Auto) 0 % (0-3) Basophils (%) (Auto) 0 % (0-3) Neutrophils # (Auto) 16.2 x10^3/uL (1.8-7.7) Lymphocytes # (Auto) 0.7 x10^3/uL (1.0-4.8) Monocytes # (Auto) 1.0 x10^3/uL (0.0-1.1) Eosinophils # (Auto) 0.0 x10^3/uL (0.0-0.7) Basophils # (Auto) 0.0 x10^3/uL (0.0-0.2) Sodium Level 142 mmol/L (136-145) Potassium Level 4.8 mmol/L (3.5-5.1) Chloride Level 105 mmol/L (98-107) Carbon Dioxide Level 24 mmol/L (21-32) Anion Gap 13 (6-14) Blood Urea Nitrogen 47 mg/dL (8-26) Creatinine 1.5 mg/dL (0.7-1.3) Estimated GFR (Cockcroft-Gault) 58.6 Glucose Level 163 mg/dL (70-99) Calcium Level 9.8 mg/dL (8.5-10.1) Magnesium Level 2.8 mg/dL (1.8-2.4) Review of Systems Review of Systems: Shortness of breath, stomach pain, weakness Assessment and Plan Assessmemt and Plan Problems Medical Problems: (1) Hypoxia Status: Acute (2) Pneumonia due to COVID-19 virus Status: Acute Comment Review of Relevant I have reviewed the following items fawn (where applicable) has been applied. Medications: Current Medications Medications (Trade) Dose Ordered Sig/Kerri Route PRN Reason Start Time Stop Time Status Last Admin Dose Admin Remdesivir 100 mg/ Sodium Chloride 230 ml @ 460 mls/hr Q24H IV 05/21/21 12:00 05/24/21 12:29 05/21/21 12:49 Justifications for Admission Other Justification COVID-19 pneumonia FENG GARCIA MD May 21, 2021 13:12
[2021-05-21] MEDS: IV NORMAL SALINE 1000ML BAG 1,000 ML IV SCH (13:19)
[2021-05-21] MEDS: PIPERACILLIN/TAZOBACTAM 3.375 GM in IV NORMAL SALINE 50ML 50 ML IV SCH ×2 (13:19→17:30)
--- NOTE | 2021-05-21 13:25 | NUR ---
SW following. Discussed with RN, pt still requiring oxygen at 9L with simple mask. COVID-19 positive. SW will continue to follow.
[2021-05-21] MEDS: FAMOTIDINE 20 MG TABLET. PO SCH (13:28)
[2021-05-21 15:00] VITALS: BP 136/78
[2021-05-21] MEDS: AZITHROMYCIN 250 MG TABLET. PO SCH (15:01)
--- NOTE | 2021-05-21 15:49 | RAD ---
XR CHEST 1V History: Reason: covid, increasing O2 req / Spl. Instructions: / History: Comparison: May 18, 2021 Findings: Multifocal pulmonary opacities, unchanged. No pleural effusion. No pneumothorax. Unchanged heart size . Impression: 1. Stable appearance of the chest compared to prior. Electronically signed by: Kumar Washington DO (05/21/2021 3:47 PM) [id number]
--- NOTE | 2021-05-21 16:26 | CONS ---
DATE OF CONSULTATION: 05/21/2021 PULMONARY CONSULTATION ATTENDING PHYSICIAN: Dr. Siddiqui. REASON FOR CONSULTATION: Respiratory failure, COVID-19 viral pneumonia. HISTORY OF PRESENT ILLNESS: The patient is a 55-year-old with a BMI of 33.8. He has no significant tobacco history. The patient was diagnosed with COVID-19 last at [place]. The patient was brought in ____ with dyspnea. He was hypoxic with 87% saturation on room air. He has some nonspecific chest pain. He has a cough. Denies any headache, nausea, vomiting, but did complain of some diarrhea. Chest x-ray was reviewed. The patient has diffuse bilateral parenchymal infiltrates. The patient's chest x-ray has been repeated today. I have reviewed the chest x-ray and it shows bilateral patchy and diffuse interstitial infiltrates consistent with viral pneumonia. Currently, he is on 6 liters of oxygen via nasal cannula and does not appear to be in any obvious respiratory distress. I have done this consultation via Telemedicine. PAST MEDICAL HISTORY: Significant for history of CAD status post stent. No significant tobacco history. PAST SURGICAL HISTORY: Surgeries including stent, right knee surgery, left knee surgery. ALLERGIES: IBUPROFEN, LISINOPRIL. MEDICATIONS: Reviewed as listed in the MRAD including Zosyn and remdesivir along with Solu-Medrol. REVIEW OF SYSTEMS: A 12-point system review obtained. Pertinent positives discussed in my presence illness, otherwise noncontributory. All systems that were negative as well. SOCIAL HISTORY: Nonsmoker. PHYSICAL EXAMINATION: VITAL SIGNS: Reviewed. He is afebrile. Pulse ox is 96% on 6 liters. GENERAL: He does not appear to be in any obvious respiratory distress on visual exam. ABDOMEN: Obese. EXTREMITIES: No leg edema. LABORATORY DATA: Reviewed. White cell count 17.9, hemoglobin 13.9, platelets are 300. BUN 47, creatinine of 1.5. IMPRESSION: 1. Acute hypoxic respiratory failure secondary to COVID-19 viral pneumonia. 2. Abnormal chest x-ray with bilateral patchy interstitial infiltrates consistent with COVID-19 viral pneumonia. 3. No significant tobacco history. 4. Acute kidney injury likely related to volume contraction. The patient has been having diarrhea. 5. Leukocytosis without any fever, likely due to steroids. We will monitor closely and leave him on empiric Zosyn. RECOMMENDATIONS: 1. Continue present oxygen 6 liters, keep saturation 92 and above. 2. Continue with remdesivir full course. 3. Continue IV Solu-Medrol for a total of 10-day course. 4. Lovenox for deep venous thrombosis prophylaxis. 5. Empiric antibiotic. 6. Monitor white cell count and follow for any new fever. 7. Discussed advanced directives with the patient and he would like to be on a ventilator in case if his hypoxia worsens. He is a full code. Discussed with RN. We will be following the patient on an needed basis. Please let us know if his oxygen requirement changes. ZULEMA/MARILIN/JENA DR: Yessi TID: [id number]
[2021-05-21 19:00] VITALS: BP 128/65
[2021-05-21] MEDS: LACTOBACILLUS RHAMNOSUS GG 1 CAPSULE. PO SCH (21:54)
[2021-05-21] MEDS: TOPIRAMATE 100 MG TABLET. PO SCH (21:54)
[2021-05-21 23:00] VITALS: BP 122/72
[2021-05-22] MEDS: PIPERACILLIN/TAZOBACTAM 3.375 GM in IV NORMAL SALINE 50ML 50 ML IV SCH ×4 (00:02→17:47)
[2021-05-22 03:00] VITALS: BP 117/68
[2021-05-22] MEDS: methylPREDNISolone SOD SUCC PF 125 MG/2 ML VIAL. IV SCH ×3 (05:59→20:30)
[2021-05-22] MEDS: IV NORMAL SALINE 1000ML BAG 1,000 ML IV SCH ×2 (05:59→16:10)
[2021-05-22 07:00] VITALS: BP 117/62
[2021-05-22] MEDS: LACTOBACILLUS RHAMNOSUS GG 1 CAPSULE. PO SCH ×2 (08:20→20:26)
[2021-05-22] MEDS: THIAMINE 100 MG TABLET. PO SCH (08:20)
[2021-05-22] MEDS: ALLOPURINOL 100 MG TABLET. PO SCH ×2 (08:21→20:29)
[2021-05-22] MEDS: FAMOTIDINE 20 MG TABLET. PO SCH ×2 (08:21→20:25)
[2021-05-22] MEDS: PANTOPRAZOLE 40 MG TABLET.DR. PO SCH (08:21)
[2021-05-22] MEDS: ASPIRIN CHEWABLE 81 MG TABLET. PO SCH (08:21)
[2021-05-22] MEDS: ZINC SULFATE 220 MG CAPSULE. PO SCH (08:21)
[2021-05-22] MEDS: ASCORBIC ACID 1,000 MG TABLET PO SCH ×3 (08:21→20:27)
[2021-05-22] MEDS: SERTRALINE 50 MG TABLET. PO SCH (08:21)
[2021-05-22] MEDS: AZITHROMYCIN 250 MG TABLET. PO SCH (08:21)
[2021-05-22] MEDS: ENOXAPARIN 40 MG/0.4 ML SYRINGE. SQ SCH (08:22)
[2021-05-22 08:53] LABS: BASO % 0 % (0-3); EOS % 0 % (0-3); HEMATOCRIT 39.3 % (39.0-53.0); HEMOGLOBIN 12.9 g/dL (13.0-17.5); LYMPH # 0.8 x10^3/uL (1.0-4.8); LYMPH % 5 % (24-48); MEAN CORPUSCULAR HEMOGLOBIN 28 pg (25-35); MEAN CORPUSCULAR HGB CONC 33 g/dL (31-37); MEAN CORPUSCULAR VOLUME 87 fL (79-100); MONO # 0.9 x10^3/uL (0.0-1.1); MONO % 5 % (0-9); NEUT # 15.4 x10^3/uL (1.8-7.7); NEUT % 90 % (31-73); PLATELET COUNT 311 x10^3/uL (140-400); RED BLOOD COUNT 4.54 x10^6/uL (4.30-5.70); RED CELL DISTRIBUTION WIDTH 15.5 % (11.5-14.5); WHITE BLOOD COUNT 17.2 x10^3/uL (4.0-11.0)
[2021-05-22 09:10] LABS: CALCIUM 8.9 mg/dL (8.5-10.1); CREATININE 1.4 mg/dL (0.7-1.3); GFR 63.4; MAGNESIUM 2.7 mg/dL (1.8-2.4); POTASSIUM 4.8 mmol/L (3.5-5.1)
[2021-05-22 11:00] VITALS: BP 119/71
[2021-05-22] MEDS: REMDESIVIR 100mg in NORMAL SALINE 250ML X 4 DAYS IV SCH (11:40)
--- NOTE | 2021-05-22 12:38 | NUR ---
Patient has had NC off each time I have walked in room today and patient's O2 sats have remained above 95%. Patient still feels soa, therefore I titrated O2 down to 2L. Will continue to monitor.
--- NOTE | 2021-05-22 13:14 | PDOC ---
[employer] PROGRESS NOTE Date of Service DOS: DATE: 05/22/21 TIME: 13:12 Chief Complaint Chief Complaint Acute hypoxic respiratory failure COVID-19 pneumonia DARIANA due to vasomotor nephropathy Obesity class I Continue remdesivir Pulmonology consult Continue Zosyn Continue IV thiamine and vitamin C IV Solu-Medrol Daily Pending ferritin, LDH, CRP, D-dimer labs Titrate O2 supplementation to maintain O2 saturation greater than 92% Lovenox for DVT prophylaxis Protonix while on steroids GI prophylaxis ADA diet Full code Discussed with RN and SW Disposition inpatient management as above Surrogate decision maker is the History of Present Illness History of Present Illness 55 year old male who present to ER with a history of 2 weeks cough and trouble breathing. Patient was not vaccinated for COVID-19. Patient was diagnosed with COVID-19 on , he was seen at the [place], was tested positive for COVID-19. Patient came in today because of worsening trouble breathing. His oxygen saturation was 87% on room air. Patient denies history of diabetic, denies history of smoking denies history of COPD, not on oxygen at home. 05/20/2021 No acute events overnight. Patient now requiring 8 L nasal cannula to saturate 97%. Patient is more short of breath. Remdesivir initiated. No concerns nursing at this time. Patient's chart, labs, images were reviewed and discussed with RN 05/21/12 Patient seen and examined at bedside. He was on 6 L nasal cannula saturating well. Was still feeling more fatigued and just generalized illness. Having some new onset upper abdominal pain, will start Pepcid and as needed GI cocktail. Adding antibiotics today today, repeat chest x-ray, plan of care discussed with resident. 05/22/21 Patient seen and examined at bedside. He was on 4 L nasal cannula maintaining good saturations. Somewhat improved but overall feels fatigued still. Continue Covid protocol. Pulmonary consulted. Plan of care discussed with bedside nurse Vitals/I&O Vitals/I&O: Vital Signs Date Time Temp Pulse Resp B/P (MAP) Pulse Ox O2 Delivery O2 Flow Rate FiO2 05/22/21 08:30 Nasal Cannula 4.0 05/22/21 08:24 55 117/62 05/22/21 07:00 97.8 22 98 97.8 I & O 05/21/21 05/21/21 05/22/21 15:00 23:00 07:00 Intake Total 699 ml 1100 ml Output Total 500 ml 500 ml Balance 199 ml 600 ml Physical Exam General: Alert, Oriented X3, Cooperative Heart: Regular rate Lungs: Other (Mildly coarse) Abdomen: Normal bowel sounds Extremities: No clubbing, No edema Skin: No rashes, No significant lesion Labs Labs: Laboratory Tests Test 05/22/21 05:50 White Blood Count 17.2 x10^3/uL (4.0-11.0) Red Blood Count 4.54 x10^6/uL (4.30-5.70) Hemoglobin 12.9 g/dL (13.0-17.5) Hematocrit 39.3 % (39.0-53.0) Mean Corpuscular Volume 87 fL (79-100) Mean Corpuscular Hemoglobin 28 pg (25-35) Mean Corpuscular Hemoglobin Concent 33 g/dL (31-37) Red Cell Distribution Width 15.5 % (11.5-14.5) Platelet Count 311 x10^3/uL (140-400) Neutrophils (%) (Auto) 90 % (31-73) Lymphocytes (%) (Auto) 5 % (24-48) Monocytes (%) (Auto) 5 % (0-9) Eosinophils (%) (Auto) 0 % (0-3) Basophils (%) (Auto) 0 % (0-3) Neutrophils # (Auto) 15.4 x10^3/uL (1.8-7.7) Lymphocytes # (Auto) 0.8 x10^3/uL (1.0-4.8) Monocytes # (Auto) 0.9 x10^3/uL (0.0-1.1) Eosinophils # (Auto) 0.0 x10^3/uL (0.0-0.7) Basophils # (Auto) 0.0 x10^3/uL (0.0-0.2) Sodium Level 143 mmol/L (136-145) Potassium Level 4.8 mmol/L (3.5-5.1) Chloride Level 108 mmol/L (98-107) Carbon Dioxide Level 25 mmol/L (21-32) Anion Gap 10 (6-14) Blood Urea Nitrogen 44 mg/dL (8-26) Creatinine 1.4 mg/dL (0.7-1.3) Estimated GFR (Cockcroft-Gault) 63.4 Glucose Level 135 mg/dL (70-99) Calcium Level 8.9 mg/dL (8.5-10.1) Magnesium Level 2.7 mg/dL (1.8-2.4) Assessment and Plan Assessmemt and Plan Problems Medical Problems: (1) Hypoxia Status: Acute (2) Pneumonia due to COVID-19 virus Status: Acute Comment Review of Relevant I have reviewed the following items fawn (where applicable) has been applied. Medications: Current Medications Medications (Trade) Dose Ordered Sig/Kerri Route PRN Reason Start Time Stop Time Status Last Admin Dose Admin Azithromycin (Zithromax) 500 mg DAILY PO 05/21/21 14:00 05/25/21 09:01 05/22/21 08:21 Sodium Chloride 1,000 ml @ 75 mls/hr [id number] IV 05/21/21 13:30 05/22/21 05:59 Piperacillin Sod/ Tazobactam Sod 3.375 gm/Sodium Chloride 50 ml @ 100 mls/hr Q6HRS IV 05/21/21 13:30 05/22/21 12:12 Lactobacillus Rhamnosus (Culturelle) 1 cap BID PO 05/21/21 21:00 05/22/21 08:20 Famotidine (Pepcid) 20 mg BID PO 05/21/21 14:00 05/22/21 08:21 Justifications for Admission Other Justification COVID-19 pneumonia FENG GARCIA MD May 22, 2021 13:14
[2021-05-22 15:00] VITALS: BP 111/68
[2021-05-22 19:00] VITALS: BP 126/74
[2021-05-22] MEDS: TOPIRAMATE 100 MG TABLET. PO SCH (20:25)
[2021-05-22] MEDS: HYDROcodone/APAP 7.5/325MG 1 TAB TABLET PO PRN (20:26)
[2021-05-22 23:00] VITALS: BP 126/80
[2021-05-23] MEDS: PIPERACILLIN/TAZOBACTAM 3.375 GM in IV NORMAL SALINE 50ML 50 ML IV SCH ×5 (00:59→23:53)
[2021-05-23 03:00] VITALS: BP 119/78
[2021-05-23] MEDS: IV NORMAL SALINE 1000ML BAG 1,000 ML IV SCH (05:30)
[2021-05-23] MEDS: methylPREDNISolone SOD SUCC PF 125 MG/2 ML VIAL. IV SCH ×3 (06:33→22:13)
[2021-05-23 07:00] VITALS: BP 136/79
[2021-05-23] MEDS: PANTOPRAZOLE 40 MG TABLET.DR. PO SCH (07:48)
[2021-05-23] MEDS: ASCORBIC ACID 1,000 MG TABLET PO SCH ×3 (08:56→22:12)
[2021-05-23] MEDS: LACTOBACILLUS RHAMNOSUS GG 1 CAPSULE. PO SCH ×2 (08:56→22:13)
[2021-05-23] MEDS: ASPIRIN CHEWABLE 81 MG TABLET. PO SCH (08:56)
[2021-05-23] MEDS: THIAMINE 100 MG TABLET. PO SCH (08:56)
[2021-05-23] MEDS: ZINC SULFATE 220 MG CAPSULE. PO SCH (08:57)
[2021-05-23] MEDS: AZITHROMYCIN 250 MG TABLET. PO SCH (08:57)
[2021-05-23] MEDS: ALLOPURINOL 100 MG TABLET. PO SCH ×2 (08:57→22:13)
[2021-05-23] MEDS: FAMOTIDINE 20 MG TABLET. PO SCH ×2 (08:57→22:12)
[2021-05-23] MEDS: SERTRALINE 50 MG TABLET. PO SCH (08:57)
[2021-05-23] MEDS: ENOXAPARIN 40 MG/0.4 ML SYRINGE. SQ SCH (09:59)
--- NOTE | 2021-05-23 10:49 | PDOC ---
[employer] [facility] PROGRESS NOTE Date of Service DOS: DATE: 05/23/21 TIME: 10:44 Chief Complaint Chief Complaint Acute hypoxic respiratory failure COVID-19 pneumonia DARIANA due to vasomotor nephropathy, possible undiagnosed CKD Obesity class I Nephrology consult for acute on chronic kidney disease Continue remdesivir Pulmonology consult Continue Zosyn Continue IV thiamine and vitamin C IV Solu-Medrol Daily Pending ferritin, LDH, CRP, D-dimer labs Titrate O2 supplementation to maintain O2 saturation greater than 92% Lovenox for DVT prophylaxis Protonix while on steroids GI prophylaxis ADA diet Full code Discussed with RN and SW Disposition inpatient management as above Surrogate decision maker is the History of Present Illness History of Present Illness 55 year old male who present to ER with a history of 2 weeks cough and trouble breathing. Patient was not vaccinated for COVID-19. Patient was diagnosed with COVID-19 on , he was seen at the [place], was tested positive for COVID-19. Patient came in today because of worsening trouble breathing. His oxygen saturation was 87% on room air. Patient denies history of diabetic, denies history of smoking denies history of COPD, not on oxygen at home. 05/20/2021 No acute events overnight. Patient now requiring 8 L nasal cannula to saturate 97%. Patient is more short of breath. Remdesivir initiated. No concerns nursing at this time. Patient's chart, labs, images were reviewed and discussed with RN 05/21/12 Patient seen and examined at bedside. He was on 6 L nasal cannula saturating well. Was still feeling more fatigued and just generalized illness. Having some new onset upper abdominal pain, will start Pepcid and as needed GI cocktail. Adding antibiotics today today, repeat chest x-ray, plan of care discussed with resident. 05/22/21 Patient seen and examined at bedside. He was on 4 L nasal cannula maintaining good saturations. Somewhat improved but overall feels fatigued still. Continue Covid protocol. Pulmonary consulted. Plan of care discussed with bedside nurse 05/23/2021 No acute events overnight. Patient seen and examined bedside. Saturating 98% on 8 L nasal cannula. Pulmonology was consulted and recommended to continue current management for Covid. Currently on IV Remdesivir. Patient's chart, labs, images were reviewed and discussed with RN Vitals/I&O Vitals/I&O: Vital Signs Date Time Temp Pulse Resp B/P (MAP) Pulse Ox O2 Delivery O2 Flow Rate FiO2 05/23/21 08:57 100 136/79 05/23/21 07:56 Nasal Cannula 10.0 05/23/21 07:00 97.9 18 91 97.9 I & O 05/22/21 05/22/21 05/23/21 15:00 23:00 07:00 Intake Total 280 ml 50 ml Output Total 350 ml 500 ml Balance 280 ml -350 ml -450 ml Physical Exam General: Alert, Oriented X3, Cooperative Heart: Regular rate Lungs: Other (Mildly coarse) Abdomen: Normal bowel sounds Extremities: No clubbing, No edema Skin: No rashes, No significant lesion Assessment and Plan Assessmemt and Plan Problems Medical Problems: (1) Hypoxia Status: Acute (2) Pneumonia due to COVID-19 virus Status: Acute Comment Review of Relevant I have reviewed the following items fawn (where applicable) has been applied. Justifications for Admission Other Justification COVID-19 pneumonia NESTOR THEODORE MD May 23, 2021 10:49
--- NOTE | 2021-05-23 10:51 | NUR ---
SW following. Discussed with RN, pt from home with , 8L, regular diet. COVID-19 positive. Pt on day 3 of Remdesivir. SW will continue to follow.
[2021-05-23 11:00] VITALS: BP 127/80
[2021-05-23] MEDS: REMDESIVIR 100mg in NORMAL SALINE 250ML X 4 DAYS IV SCH (11:32)
--- NOTE | 2021-05-23 13:20 | RAD ---
EXAM: RENAL/RETROPERITONAL ULTRASOUND. HISTORY: Elevated creatinine. COMPARISON: None. FINDINGS: Ultrasound of the kidneys, bladder and retroperitoneum was performed. The right kidney measures 11.0 cm. Cortical thickness and echogenicity are preserved. There is no hyd ronephrosis. The left kidney measures 9.3 cm. Cortical thickness and echogenicity are preserved. There is no hydro nephrosis. A masslike region in the left interpolar region is measured at 3.3 cm. This is likely a no rmal variant column of Hoang. Images of the bladder reveal no gross abnormality. The abdominal aorta and inferior vena cava are susan ssly patent and normal in caliber. IMPRESSION: 1. No hydronephrosis. 2. A masslike region in the left interpolar region is likely a normal variant column of Hoang. CT co uld further exclude a mass versus sonographic follow-up in 6 months. Electronically signed by: Jagruti Cardenas MD (05/23/2021 1:18 PM) [id number]
[2021-05-23 15:30] VITALS: BP 144/86
[2021-05-23 19:00] VITALS: BP 140/86
[2021-05-23] MEDS: TOPIRAMATE 100 MG TABLET. PO SCH (22:12)
[2021-05-23 23:01] VITALS: BP 148/92
[2021-05-24 03:08] VITALS: BP 146/96
[2021-05-24] MEDS: PIPERACILLIN/TAZOBACTAM 3.375 GM in IV NORMAL SALINE 50ML 50 ML IV SCH (06:13)
[2021-05-24] MEDS: methylPREDNISolone SOD SUCC PF 125 MG/2 ML VIAL. IV SCH ×3 (06:14→19:53)
[2021-05-24 07:00] VITALS: BP 154/90
--- NOTE | 2021-05-24 08:53 | PDOC ---
PULMONARY PROGRESS NOTES DATE: 05/24/21 TIME: 08:50 Subjective Patient was on 10 L of oxygen but comfortable. No increased shortness of breath. Vitals Vital Signs Date Time Temp Pulse Resp B/P (MAP) Pulse Ox O2 Delivery O2 Flow Rate FiO2 05/24/21 07:00 98.0 55 18 154/90 (111) 96 High Flow Nasal Cannula 10.0 98.0 Comments Visual exam done due to COVID-19. No paradoxical breathing. No skin rash no leg edema. General: Alert, No acute distress Medications Active Scripts Medications Dose Route/Sig Max Daily Dose Days Date Category Hydrocodone-Acetamin 7.5-325 (Hydrocodone/Acetaminophen) 1 Each Tablet 1 Each PO Q6HRS PRN 05/18/21 Reported [percocet] Unknown Strength Unknown Dose 05/18/21 Reported [tramadol] Unknown Strength Unknown Dose 05/18/21 Reported Melatonin 10 Mg Capsule 1 Cap PO QHS 30 05/18/21 Reported Topiramate 50 Mg Tablet 3 Tab PO HS 30 05/18/21 Reported Zoloft (Sertraline Hcl) 50 Mg Tablet 1 Tab PO DAILY 05/18/21 Reported Amlodipine Besylate 10 Mg Tablet 10 Mg PO DAILY 05/18/21 Reported Allopurinol 100 Mg Tablet 1 Tab PO BID 05/18/21 Reported Tessalon Perle (Benzonatate) 100 Mg Capsule 1 Cap PO DAILY 05/18/21 Reported Proair Hfa Inhaler (Albuterol Sulfate) 8.5 Gm Hfa.aer.ad 2 Puff IH PRN Q4-6HRS PRN 21 05/18/21 Reported Aspirin 81 Mg Tab.chew 81 Mg PO DAILY 05/18/21 Reported Impression . 1. Acute hypoxic respiratory failure secondary to COVID-19 viral pneumonia. 2. Abnormal chest x-ray with bilateral patchy interstitial infiltrates consistent with COVID-19 viral pneumonia. 3. No significant tobacco history. 4. Acute kidney injury likely related to volume contraction. The patient has been having diarrhea. 5. Leukocytosis without any fever, likely due to steroids. We will monitor closely and leave him on empiric Zosyn. Plan . RECOMMENDATIONS: 1. Continue present oxygen 10 liters, keep saturation 92 and above. 2. Continue with remdesivir full course. 3. Continue IV Solu-Medrol for a total of 10-day course. 4. Lovenox for deep venous thrombosis prophylaxis. 5. Empiric antibiotic. 6. Monitor white cell count and follow for any new fever. 7. Discussed advanced directives with the patient and he would like to be on a ventilator in case if his hypoxia worsens. He is a full code. Discussed with RN. We will be following the patient on an needed basis. Please let us know if his oxygen requirement further worsens STACY EASON MD May 24, 2021 08:53
--- NOTE | 2021-05-24 10:01 | RAD ---
XR CHEST 1V History: Reason: covid pneumonia / Spl. Instructions: / History: Comparison: May 21, 2021 Findings: Mild multifocal pulmonary opacities, unchanged. No pleural effusion. No pneumothorax. Unchanged heart size. Impression: 1. Stable appearance of the chest compared to prior. Electronically signed by: Kumar Washington DO (05/24/2021 9:59 AM) [id number]
[2021-05-24] MEDS: ALLOPURINOL 100 MG TABLET. PO SCH ×2 (10:29→19:52)
[2021-05-24] MEDS: AZITHROMYCIN 500 MG in IV NORMAL SALINE 250ML 250 ML IV SCH (10:29)
[2021-05-24] MEDS: THIAMINE 100 MG TABLET. PO SCH (10:30)
[2021-05-24] MEDS: LACTOBACILLUS RHAMNOSUS GG 1 CAPSULE. PO SCH ×2 (10:30→19:52)
[2021-05-24] MEDS: ASCORBIC ACID 1,000 MG TABLET PO SCH ×3 (10:30→19:52)
[2021-05-24] MEDS: ZINC SULFATE 220 MG CAPSULE. PO SCH (10:30)
[2021-05-24] MEDS: ASPIRIN CHEWABLE 81 MG TABLET. PO SCH (10:30)
[2021-05-24] MEDS: PANTOPRAZOLE 40 MG TABLET.DR. PO SCH (10:31)
[2021-05-24] MEDS: FAMOTIDINE 20 MG TABLET. PO SCH ×2 (10:31→19:53)
[2021-05-24] MEDS: SERTRALINE 50 MG TABLET. PO SCH (10:31)
--- NOTE | 2021-05-24 10:31 | PDOC2 ---
CONSULT Date of Consult Date of Consult DATE: 05/24/21 TIME: 10:24 Reason for Consult Reason for Consult: RENAL FAILURE Referring Physician Referring Physician: HARSHAD Identification/Chief Complaint Chief Complaint SOB Source Source: Chart review, Patient History of Present Illness Reason for Visit: THIS IS A 55 YR ODL WITH SOB. DX WITH COVID 19 PNEUMONIA. CURRENTLY GETTING REMDESIVIR AND STEROIDS. CR OF 1.4-1.6. NO KNOWN CKD. NO KNOWN HX OF ANY KIDNEY OR BLADDER SURGERIES HEMATURIA DYSURIA OR FREQUENCY NOTED. HE HAS BEEN HYPOXIC AND NEEDING SUPPLEMENTAL O2. UA NOTABLE FOR TRACE PROTEIN AND HEMATURIA. NO NEPHROTOXINS OR HEMODYNAMIC INSTABILITY Past Medical History Cardiovascular: CAD, HTN Psych: Depression Rheumatologic: Gout Past Surgical History Past Surgical History BILATERAL KNEE SURGERIES, PTCA - STENT Family History Family History: Hypertension Social History No ALCOHOL: none Drugs: None Lives: with Family Current Problem List Problem List Problems Medical Problems: (1) Hypoxia Status: Acute (2) Pneumonia due to COVID-19 virus Status: Acute Current Medications Current Medications Current Medications Dexamethasone Sodium Phosphate (Decadron) 10 mg 1X ONCE IVP Last administered on 05/18/21at 16:02; Start 05/18/21 at 15:30; Stop 05/18/21 at 15:31; Status DC Ceftriaxone Sodium (Rocephin) 1 gm 1X ONCE IVP Last administered on 05/18/21at 16:04; Start 05/18/21 at 15:30; Stop 05/18/21 at 15:31; Status DC Azithromycin 250 ml @ 250 mls/hr 1X ONCE IV Last administered on 05/18/21at 16:11; Start 05/18/21 at 15:30; Stop 05/18/21 at 16:29; Status DC Ondansetron HCl (Zofran) 4 mg PRN Q8HRS PRN IVP NAUSEA/VOMITING; Start 05/18/21 at 16:00; Stop 05/19/21 at 15:59; Status DC Albuterol Sulfate (Ventolin Neb Soln) 2 mg Q4HRS W/A PRN INH wheezing; Start 05/18/21 at 21:30; Stop 05/18/21 at 21:42; Status DC Allopurinol (Zyloprim) 100 mg BID PO Last administered on 05/23/21at 22:13; Start 05/19/21 at 09:00 Amlodipine Besylate (Norvasc) 10 mg DAILY PO Last administered on 05/23/21 08:57; Start 05/19/21 at 09:00 Aspirin (Aspirin Chewable) 81 mg DAILY PO Last administered on 05/23/21 08:56; Start 05/19/21 at 09:00 Sertraline HCl (Zoloft) 50 mg DAILY PO Last administered on 05/23/21 08:57; Start 05/19/21 at 09:00 Non-Formulary Medication (Melatonin ) 1 cap QHS PO ; Start 05/19/21 at 21:00; Status UNV Topiramate (Topamax) 150 mg HS PO Last administered on 05/23/21 22:12; Start 05/19/21 at 21:00 Guaifenesin (MUCINEX ER with DM) 1 tab PRN BID PRN PO COUGH, 2nd CHOICE Last administered on 05/21/21 10:41; Start 05/18/21 at 21:45 Albuterol Sulfate (Ventolin Hfa) 2 puff PRN Q4HRS PRN INH SOA Last administered on 05/18/21 22:49; Start 05/18/21 at 21:45 Acetaminophen/ Hydrocodone Bitart (Lortab 7.5/325) 1 tab PRN Q6HRS PRN PO MODERATE - SEVERE PAIN Last administered on 05/22/21 20:26; Start 05/18/21 at 22:30 Ascorbic Acid (Vitamin C) 3,000 mg TID PO Last administered on 05/23/21 22:12; Start 05/19/21 at 09:00 Methylprednisolone Sodium Succinate (SOLU-Medrol 125MG VIAL) 125 mg Q8HRS IV Last administered on 05/24/21 06:14; Start 05/19/21 at 08:00 Thiamine Mononitrate (Vitamin B-1) 300 mg DAILY PO Last administered on 05/23/21 08:56; Start 05/19/21 at 09:00 Zinc Sulfate (Orazinc) 220 mg DAILY PO Last administered on 05/23/21 08:57; Start 05/19/21 at 09:00 Sennosides (Senna) 17.2 mg PRN BID PRN PO CONSTIPATION; Start 05/19/21 at 08:00 Docusate Sodium (Colace) 100 mg PRN DAILY PRN PO HARD STOOLS Last administered on 05/21/21at 10:44; Start 05/19/21 at 08:00 Ondansetron HCl (Zofran) 4 mg PRN Q6HRS PRN IVP NAUSEA/VOMITING; Start 05/19/21 at 08:00 Dextrose (Dextrose 50%-Water Syringe) 12.5 gm PRN Q15MIN PRN IV SEE COMMENTS; Start 05/19/21 at 08:00 Acetaminophen (Tylenol) 650 mg PRN Q4HRS PRN PO TEMP OVER 100.4F OR MILD PAIN; Start 05/19/21 at 08:00 Enoxaparin Sodium (Lovenox 40mg Syringe) 40 mg Q24H SQ Last administered on 05/23/21at 09:59; Start 05/19/21 at 09:00 Prochlorperazine Edisylate (Compazine) 10 mg PRN Q6HRS PRN IV NAUSEA/VOMITING - 2ND CHOICE; Start 05/19/21 at 08:00 Pantoprazole Sodium (Protonix) 40 mg DAILYAC PO Last administered on 05/23/21at 07:48; Start 05/19/21 at 14:00 Remdesivir 200 mg/ Sodium Chloride 210 ml @ 210 mls/hr 1X ONCE IV Last administered on 05/20/21at 12:04; Start 05/20/21 at 12:00; Stop 05/20/21 at 12:59; Status DC Remdesivir 100 mg/ Sodium Chloride 230 ml @ 460 mls/hr Q24H IV Last administered on 05/23/21at 11:32; Start 05/21/21 at 12:00; Stop 05/24/21 at 12:29 Guaifenesin/ Codeine Phosphate (Robitussin Ac) 5 ml PRN Q6HRS PRN PO COUGH, 1st CHOICE; Start 05/21/21 at 13:00 Piperacillin Sod/ Tazobactam Sod (Zosyn Per Pharmacy) 1 each PRN DAILY PRN MC SEE COMMENTS; Start 05/21/21 at 13:00; Status Cancel Azithromycin (Zithromax) 500 mg DAILY PO Last administered on 05/23/21at 08:57; Start 05/21/21 at 14:00; Stop 05/24/21 at 08:35; Status DC Sodium Chloride 1,000 ml @ 75 mls/hr [id number] IV Last administered on 05/22/21at 05:59; Start 05/21/21 at 13:30; Stop 05/23/21 at 09:10; Status DC Piperacillin Sod/ Tazobactam Sod 3.375 gm/Sodium Chloride 50 ml @ 100 mls/hr Q6HRS IV Last administered on 05/24/21at 06:13; Start 05/21/21 at 13:30; Stop 05/24/21 at 08:16; Status DC Lactobacillus Rhamnosus (Culturelle) 1 cap BID PO Last administered on 05/23/21at 22:13; Start 05/21/21 at 21:00 Famotidine (Pepcid) 20 mg BID PO Last administered on 05/23/21at 22:12; Start 05/21/21 at 14:00 Multi-Ingredient Mouthwash/Gargle (Gi Cocktail) 20 ml PRN QID PRN PO CHEST PAIN; Start 05/21/21 at 13:15 Ceftriaxone Sodium (Rocephin) 1 gm Q24H IVP ; Start 05/24/21 at 12:00 Azithromycin 500 mg/Sodium Chloride 250 ml @ 250 mls/hr Q24H IV ; Start 05/24/21 at 09:00 Active Scripts Active Reported Hydrocodone-Acetamin 7.5-325 (Hydrocodone/Acetaminophen) 1 Each Tablet 1 Each PO Q6HRS PRN [percocet] Unknown Strength Unknown Dose [tramadol] Unknown Strength Unknown Dose Melatonin 10 Mg Capsule 1 Cap PO QHS 30 Days Topiramate 50 Mg Tablet 3 Tab PO HS 30 Days Zoloft (Sertraline Hcl) 50 Mg Tablet 1 Tab PO DAILY Amlodipine Besylate 10 Mg Tablet 10 Mg PO DAILY Allopurinol 100 Mg Tablet 1 Tab PO BID Tessalon Perle (Benzonatate) 100 Mg Capsule 1 Cap PO DAILY Proair Hfa Inhaler (Albuterol Sulfate) 8.5 Gm Hfa.aer.ad 2 Puff IH PRN Q4-6HRS PRN 21 Days Aspirin 81 Mg Tab.chew 81 Mg PO DAILY Allergies Allergies: Coded Allergies: lisinopril (Verified Allergy, Intermediate, angioedema, 05/18/21) ibuprofen (Verified Adverse Reaction, Mild, upset stomach, 05/18/21) ROS General: YES: Fatigue, Malaise, Appetite PSYCHOLOGICAL ROS: YES: Depression Eyes: Yes Decreased vision HEENT: YES: Heacaches ALLERGY AND IMMUNOLOGY: YES: Seasonal Allergies Respiratory: YES: Cough, Orthopnea, Shortness of breath, SOB with excertion Cardiovascular: yes Orthopnea Gastrointestinal: Yes Nausea, Yes Constipation Genitourinary: YES Frequency Musculoskeletal: Yes Muscular Weakness Neurological: Yes Weakness Skin: Yes Dry Skin Physical Exam General: Alert, Oriented X3, Cooperative, No acute distress HEENT: Atraumatic, PERRLA Lungs: Other (DECREASED AT BASES) Heart: Regular rate, Normal S1, Normal S2 Abdomen: Normal bowel sounds, No tenderness Extremities: No clubbing Skin: No breakdown Neuro: Normal speech Psych/Mental Status: Mental status NL, Mood NL MUSCULOSKELETAL: No joint tenderness, No deformity, No swelling Vitals VITALS Vital Signs Date Time Temp Pulse Resp B/P (MAP) Pulse Ox O2 Delivery O2 Flow Rate FiO2 05/24/21 07:00 98.0 55 18 154/90 (111) 96 High Flow Nasal Cannula 10.0 98.0 Images Images EXAM: RENAL/RETROPERITONAL ULTRASOUND. HISTORY: Elevated creatinine. COMPARISON: None. FINDINGS: Ultrasound of the kidneys, bladder and retroperitoneum was performed. The right kidney measures 11.0 cm. Cortical thickness and echogenicity are preserved. There is no hydronephrosis. The left kidney measures 9.3 cm. Cortical thickness and echogenicity are preserved. There is no hydronephrosis. A masslike region in the left interpolar region is measured at 3.3 cm. This is likely a normal variant column of Hoagn. Images of the bladder reveal no gross abnormality. The abdominal aorta and inferior vena cava are grossly patent and normal in caliber. IMPRESSION: 1. No hydronephrosis. 2. A masslike region in the left interpolar region is likely a normal variant column of Hoang. CT could further exclude a mass versus sonographic follow-up in 6 months. Electronically signed by: Jagruti Cardenas MD (05/23/2021 1:18 PM) [id number] Assessment/Plan Assessment/Plan RENAL FAILURE-DARIANA VS CKD MILD PROTEINURIA MILD HEMATURIA HYPOXIA ACUTE RESP FAILURE COVID 19 PNEUMONIA LEUCOCYTOSIS-PROB DEMARGINATION OBESITY PLAN CONT TO TX COVID 19 SUPPLEMENTAL O2 RENAL SONOGRAM HYDRATION NEEDED WILL FOLLOW GERTRUDE PARKER MD May 24, 2021 10:31
[2021-05-24] MEDS: ENOXAPARIN 40 MG/0.4 ML SYRINGE. SQ SCH (10:34)
[2021-05-24 10:40] LABS: CALCIUM 9.4 mg/dL (8.5-10.1); CREATININE 1.5 mg/dL (0.7-1.3); GFR 58.6; MAGNESIUM 2.9 mg/dL (1.8-2.4); PHOSPHORUS 4.4 mg/dL (2.6-4.7); POTASSIUM 4.4 mmol/L (3.5-5.1)
[2021-05-24 10:48] VITALS: BP 159/83
--- NOTE | 2021-05-24 12:12 | NUR ---
patient bed alarm going off. staff entered room and patient had been incontinent of bowel and urine on bed and floor. had removed tele and oxygen, pulled out IV, removed gown, and walked to bathroom w/out O2. RN placed patient on portable O2 at 10L while on commode. floor cleaned. linens and gown changed. patient placed back in bed and on 15L NRB as sat was only 73% on 10L NC. patient recovered to 89% on NRB. will monitor.
--- NOTE | 2021-05-24 12:35 | PDOC ---
[employer] PROGRESS NOTE Date of Service DOS: DATE: 05/24/21 TIME: 12:34 Chief Complaint Chief Complaint Acute hypoxic respiratory failure COVID-19 pneumonia DARIANA due to vasomotor nephropathy, possible undiagnosed CKD Obesity class I Nephrology consult for acute on chronic kidney disease Continue remdesivir Pulmonology consult Continue Zosyn Continue IV thiamine and vitamin C IV Solu-Medrol Daily Pending ferritin, LDH, CRP, D-dimer labs Titrate O2 supplementation to maintain O2 saturation greater than 92% Lovenox for DVT prophylaxis Protonix while on steroids GI prophylaxis ADA diet Full code Discussed with RN and SW Disposition inpatient management as above Surrogate decision maker is the History of Present Illness History of Present Illness 55 year old male who present to ER with a history of 2 weeks cough and trouble breathing. Patient was not vaccinated for COVID-19. Patient was diagnosed with COVID-19 on , he was seen at the [place], was tested positive for COVID-19. Patient came in today because of worsening trouble breathing. His oxygen saturation was 87% on room air. Patient denies history of diabetic, denies history of smoking denies history of COPD, not on oxygen at home. 05/20/2021 No acute events overnight. Patient now requiring 8 L nasal cannula to saturate 97%. Patient is more short of breath. Remdesivir initiated. No concerns nursing at this time. Patient's chart, labs, images were reviewed and discussed with RN 05/21/12 Patient seen and examined at bedside. He was on 6 L nasal cannula saturating well. Was still feeling more fatigued and just generalized illness. Having some new onset upper abdominal pain, will start Pepcid and as needed GI cocktail. Adding antibiotics today today, repeat chest x-ray, plan of care discussed with resident. 05/22/21 Patient seen and examined at bedside. He was on 4 L nasal cannula maintaining good saturations. Somewhat improved but overall feels fatigued still. Continue Covid protocol. Pulmonary consulted. Plan of care discussed with bedside nurse 05/23/2021 No acute events overnight. Patient seen and examined bedside. Saturating 98% on 8 L nasal cannula. Pulmonology was consulted and recommended to continue current management for Covid. Currently on IV Remdesivir. Patient's chart, labs, images were reviewed and discussed with RN 05/24/2021 No acute events overnight. Patient seen examined bedside. Patient saturating 98% on 10 L nasal cannula. Still short of breath during speaking. CT abdomen pelvis ordered today to evaluate lesion on the kidney. Patient still does not know what is the cause of his renal failure. No history of hypertension or diabetes. Neurology has been consulted. Pending further evaluation. Vitals/I&O Vitals/I&O: Vital Signs Date Time Temp Pulse Resp B/P (MAP) Pulse Ox O2 Delivery O2 Flow Rate FiO2 05/24/21 10:48 98.9 63 18 159/83 (108) 100 High Flow Nasal Cannula 10.0 98.9 I & O 05/23/21 05/23/21 05/24/21 15:00 23:00 07:00 Intake Total 580 ml 200 ml 100 ml Output Total 300 ml 250 ml Balance 580 ml -100 ml -150 ml Physical Exam General: Alert, Oriented X3, Cooperative, No acute distress Heart: Regular rate, Normal S1, Normal S2 Abdomen: Normal bowel sounds, No tenderness Extremities: No clubbing Skin: No breakdown Labs Labs: Laboratory Tests Test 05/24/21 09:30 Sodium Level 149 mmol/L (136-145) Potassium Level 4.4 mmol/L (3.5-5.1) Chloride Level 114 mmol/L (98-107) Carbon Dioxide Level 20 mmol/L (21-32) Anion Gap 15 (6-14) Blood Urea Nitrogen 46 mg/dL (8-26) Creatinine 1.5 mg/dL (0.7-1.3) Estimated GFR (Cockcroft-Gault) 58.6 Glucose Level 182 mg/dL (70-99) Calcium Level 9.4 mg/dL (8.5-10.1) Phosphorus Level 4.4 mg/dL (2.6-4.7) Magnesium Level 2.9 mg/dL (1.8-2.4) Assessment and Plan Assessmemt and Plan Problems Medical Problems: (1) Hypoxia Status: Acute (2) Pneumonia due to COVID-19 virus Status: Acute Comment Review of Relevant I have reviewed the following items fawn (where applicable) has been applied. Medications: Current Medications Medications (Trade) Dose Ordered Sig/Kerri Route PRN Reason Start Time Stop Time Status Last Admin Dose Admin Azithromycin 500 mg/Sodium Chloride 250 ml @ 250 mls/hr Q24H IV 8/14/21 09:00 05/24/21 10:29 Justifications for Admission Other Justification COVID-19 pneumonia NESTOR THEODORE MD May 24, 2021 12:35
--- NOTE | 2021-05-24 14:42 | PDOC ---
Provider Note Date of Service: DATE: 05/24/21 TIME: 14:39 Provider Note #24 iv started rt AC after 3 attemps. good blood return and flush with normal saline. op site dressing Justifications for Admission Other Justification COVID-19 pneumonia ASHLEE VARGAS CRNA May 24, 2021 14:42
[2021-05-24 14:53] VITALS: BP 135/85
--- NOTE | 2021-05-24 16:59 | NUR ---
vitamin C nonadmin d/t patient too lethargic
[2021-05-24] MEDS: REMDESIVIR 100mg in NORMAL SALINE 250ML X 4 DAYS IV SCH (17:12)
[2021-05-24] MEDS: cefTRIAXone IV Push 1 GM VIAL. IVP SCH (17:12)
[2021-05-24 19:00] VITALS: BP 144/88
[2021-05-24] MEDS: TOPIRAMATE 100 MG TABLET. PO SCH (19:52)
[2021-05-24 23:01] VITALS: BP 154/91
[2021-05-25 03:16] VITALS: BP 155/94
[2021-05-25] MEDS: methylPREDNISolone SOD SUCC PF 125 MG/2 ML VIAL. IV SCH ×3 (05:34→21:00)
[2021-05-25 06:09] LABS: CALCIUM 9.5 mg/dL (8.5-10.1); CREATININE 1.4 mg/dL (0.7-1.3); GFR 63.4; POTASSIUM 4.7 mmol/L (3.5-5.1)
[2021-05-25 06:56] VITALS: BP 145/97
[2021-05-25] MEDS ORDERED: IV 1/2 NORMAL SALINE 1,000 ML IV SCH (08:15)
[2021-05-25] MEDS: ALLOPURINOL 100 MG TABLET. PO SCH ×2 (08:55→19:50)
[2021-05-25] MEDS: THIAMINE 100 MG TABLET. PO SCH (08:55)
[2021-05-25] MEDS: ZINC SULFATE 220 MG CAPSULE. PO SCH (08:55)
[2021-05-25] MEDS: LACTOBACILLUS RHAMNOSUS GG 1 CAPSULE. PO SCH ×2 (08:55→19:50)
[2021-05-25] MEDS: ASCORBIC ACID 1,000 MG TABLET PO SCH ×3 (08:55→19:50)
[2021-05-25] MEDS: ASPIRIN CHEWABLE 81 MG TABLET. PO SCH (08:59)
[2021-05-25] MEDS: PANTOPRAZOLE 40 MG TABLET.DR. PO SCH (09:00)
[2021-05-25] MEDS: ENOXAPARIN 40 MG/0.4 ML SYRINGE. SQ SCH (09:00)
[2021-05-25] MEDS: SERTRALINE 50 MG TABLET. PO SCH (09:00)
[2021-05-25] MEDS: FAMOTIDINE 20 MG TABLET. PO SCH ×2 (09:00→19:50)
[2021-05-25] MEDS: AZITHROMYCIN 500 MG in IV NORMAL SALINE 250ML 250 ML IV SCH (09:06)
[2021-05-25 09:40] LABS: MAGNESIUM 2.8 mg/dL (1.8-2.4); PHOSPHORUS 4.5 mg/dL (2.6-4.7)
--- NOTE | 2021-05-25 10:33 | PDOC ---
Renal-Progress Notes Subjective Notes Notes NONE History of Present Illness Hx of present illness STABLE Vitals Vitals Vital Signs Date Time Temp Pulse Resp B/P (MAP) Pulse Ox O2 Delivery O2 Flow Rate FiO2 05/25/21 08:59 69 145/97 05/25/21 06:56 97.0 18 94 NonRebreather Mask 97.0 05/24/21 20:00 15.0 Weight Weight [ ] I.O. Intake and Output Intake and Output 05/25/21 07:00 Intake Total 300 ml Output Total 850 ml Balance -550 ml Intake Oral 300 ml Output Urine Total 850 ml Labs Labs Laboratory Tests Test 05/25/21 05:15 Sodium Level 152 mmol/L (136-145) Potassium Level 4.7 mmol/L (3.5-5.1) Chloride Level 117 mmol/L (98-107) Carbon Dioxide Level 22 mmol/L (21-32) Anion Gap 13 (6-14) Blood Urea Nitrogen 48 mg/dL (8-26) Creatinine 1.4 mg/dL (0.7-1.3) Estimated GFR (Cockcroft-Gault) 63.4 Glucose Level 167 mg/dL (70-99) Calcium Level 9.5 mg/dL (8.5-10.1) Phosphorus Level 4.5 mg/dL (2.6-4.7) Magnesium Level 2.8 mg/dL (1.8-2.4) Micro Micro Microbiology 05/18/21 Blood Culture - Final, Complete NO GROWTH AFTER 5 DAYS Review of Systems Constitutional: yes: weakness, alert, oriented Ears/Nose/Throat: Yes: no symptom reported Eyes: Yes: no symptom reported Pulmonary: Yes dyspnea Cardiovascular: Yes no symptom reported Gastrointestional: Yes: no symptom reported Genitourinary: Yes: no symptom reported Musculoskeletal: Yes: no symptom reported Skin: Yes no symptom reported Psychiatric/Neurological: Yes: no symptom reported Physical Exam General Appearance: no apparent distress Skin: warm Respiratory: decreased breath sounds Heart: S1S2 Abdomen: soft, bowel sounds present Genitourinary: bladder flat Extremities: pulses present Neurology: alert Assessment Assessment Assessment/Plan RENAL FAILURE-DARIANA VS CKD-CR STABLE AT 1.4 HYPERNATREMIA MILD PROTEINURIA MILD HEMATURIA HYPOXIA ACUTE RESP FAILURE COVID 19 PNEUMONIA LEUCOCYTOSIS-PROB DEMARGINATION OBESITY ? LEFT RENAL MASS-PROB BENIGN PLAN CONT TO TX COVID 19 SUPPLEMENTAL O2 RENAL SONOGRAM F/U IN SIX MONTHS HYDRATION NEEDED CHANGE IVF TO HYPOTONIC SALINE WILL FOLLOW GERTRUDE PARKER MD May 25, 2021 10:33
--- NOTE | 2021-05-25 10:53 | PDOC ---
[employer] PROGRESS NOTE Date of Service DOS: DATE: 05/25/21 TIME: 10:50 Chief Complaint Chief Complaint Acute hypoxic respiratory failure COVID-19 pneumonia DARIANA due to vasomotor nephropathy, possible undiagnosed CKD Obesity class I Hypernatremia Nephrology consult for acute on chronic kidney disease Continue remdesivir Pulmonology consult Continue Zosyn Continue IV thiamine and vitamin C IV Solu-Medrol Daily Pending ferritin, LDH, CRP, D-dimer labs Titrate O2 supplementation to maintain O2 saturation greater than 92% Lovenox for DVT prophylaxis Protonix while on steroids GI prophylaxis ADA diet Full code Discussed with RN and SW Disposition inpatient management as above Surrogate decision maker is the History of Present Illness History of Present Illness 55 year old male who present to ER with a history of 2 weeks cough and trouble breathing. Patient was not vaccinated for COVID-19. Patient was diagnosed with COVID-19 on , [place] seen [place], was tested positive for COVID-19. Patient came in today because of worsening trouble breathing. His oxygen saturation was 87% on room air. Patient denies history of diabetic, denies hist ory of smoking denies history of COPD, not on oxygen at home. 05/20/2021 No acute events overnight. Patient now requiring 8 L nasal cannula to saturate 97%. Patient is more short of breath. Remdesivir initiated. No concerns nursing at this time. Patient's chart, labs, images were reviewed and discussed with RN 05/21/12 Patient seen and examined at bedside. He was on 6 L nasal cannula saturating well. Was still feeling more fatigued and just generalized illness. Having some new onset upper abdominal pain, will start Pepcid and as needed GI cocktail. Adding antibiotics today today, repeat chest x-ray, plan of care discussed with resident. 05/22/21 Patient seen and examined at bedside. He was on 4 L nasal cannula maintaining good saturations. Somewhat improved but overall feels fatigued still. Continue Covid protocol. Pulmonary consulted. Plan of care discussed with bedside nurse 05/23/2021 No acute events overnight. Patient seen and examined bedside. Saturating 98% on 8 L nasal cannula. Pulmonology was consulted and recommended to continue current management for Covid. Currently on IV Remdesivir. Patient's chart, labs, images were reviewed and discussed with RN 05/24/2021 No acute events overnight. Patient seen examined bedside. Patient saturating 98% on 10 L nasal cannula. Still short of breath during speaking. CT abdomen pelvis ordered today to evaluate lesion on the kidney. Patient still does not know what is the cause of his renal failure. No history of hypertension or diabetes. Neurology has been consulted. Pending further evaluation. 05/25/2021 No acute events overnight. Patient saturating 95% on 15 L nonrebreather. Switch IV fluids to D5W at 75 cc/h. Patient's chart, labs, images were reviewed and discussed with RN Vitals/I&O Vitals/I&O: Vital Signs Date Time Temp Pulse Resp B/P (MAP) Pulse Ox O2 Delivery O2 Flow Rate FiO2 05/25/21 08:59 69 145/97 05/25/21 06:56 97.0 18 94 NonRebreather Mask 97.0 05/24/21 20:00 15.0 I & O 05/24/21 05/24/21 05/25/21 15:00 23:00 07:00 Intake Total 250 ml 50 ml Output Total 300 ml 550 ml Balance 250 ml -250 ml -550 ml Physical Exam General: Alert, Oriented X3, Cooperative, No acute distress Heart: Regular rate, Normal S1, Normal S2 Abdomen: Normal bowel sounds, No tenderness Extremities: No clubbing Skin: No breakdown Labs Labs: Laboratory Tests Test 05/25/21 05:15 Sodium Level 152 mmol/L (136-145) Potassium Level 4.7 mmol/L (3.5-5.1) Chloride Level 117 mmol/L (98-107) Carbon Dioxide Level 22 mmol/L (21-32) Anion Gap 13 (6-14) Blood Urea Nitrogen 48 mg/dL (8-26) Creatinine 1.4 mg/dL (0.7-1.3) Estimated GFR (Cockcroft-Gault) 63.4 Glucose Level 167 mg/dL (70-99) Calcium Level 9.5 mg/dL (8.5-10.1) Phosphorus Level 4.5 mg/dL (2.6-4.7) Magnesium Level 2.8 mg/dL (1.8-2.4) Assessment and Plan Assessmemt and Plan Problems Medical Problems: (1) Hypoxia Status: Acute (2) Pneumonia due to COVID-19 virus Status: Acute Comment Review of Relevant I have reviewed the following items fawn (where applicable) has been applied. Medications: Current Medications Medications (Trade) Dose Ordered Sig/Kerri Route PRN Reason Start Time Stop Time Status Last Admin Dose Admin Ceftriaxone Sodium (Rocephin) 1 gm Q24H IVP 05/24/21 12:00 05/24/21 17:12 Sodium Chloride 1,000 ml @ 75 mls/hr [id number] IV 05/25/21 08:15 05/25/21 10:34 DC 05/25/21 08:54 Justifications for Admission Other Justification COVID-19 pneumonia NESTOR THEODORE MD May 25, 2021 10:53
[2021-05-25 11:00] VITALS: BP 148/88
[2021-05-25] MEDS: cefTRIAXone IV Push 1 GM VIAL. IVP SCH (13:03)
[2021-05-25] MEDS: IV DEXTROSE 5% 1,000 ML IV SCH (13:04)
[2021-05-25 15:00] VITALS: BP 139/87
[2021-05-25 19:00] VITALS: BP 160/89
[2021-05-25] MEDS: TOPIRAMATE 100 MG TABLET. PO SCH (19:50)
[2021-05-25 23:00] VITALS: BP 141/84
[2021-05-26] MEDS: IV DEXTROSE 5% 1,000 ML IV SCH ×3 (00:09→22:40)
[2021-05-26 03:00] VITALS: BP 162/88
[2021-05-26] MEDS: methylPREDNISolone SOD SUCC PF 125 MG/2 ML VIAL. IV SCH ×3 (05:39→21:10)
[2021-05-26 07:00] VITALS: BP 148/90
--- NOTE | 2021-05-26 07:33 | PDOC ---
[facility] PROGRESS NOTE Date of Service DOS: DATE: 05/26/21 TIME: 07:32 Chief Complaint Chief Complaint Acute hypoxic respiratory failure COVID-19 pneumonia DARIANA due to vasomotor nephropathy, possible undiagnosed CKD Obesity class I Hypernatremia Nephrology consult for acute on chronic kidney disease Continue remdesivir Pulmonology consult Continue Zosyn Continue IV thiamine and vitamin C IV Solu-Medrol Daily Pending ferritin, LDH, CRP, D-dimer labs Titrate O2 supplementation to maintain O2 saturation greater than 92% Lovenox for DVT prophylaxis Protonix while on steroids GI prophylaxis ADA diet Full code Discussed with RN and SW Disposition inpatient management as above Surrogate decision maker is the History of Present Illness History of Present Illness Mr Parson is a 55 year old male w/ PMHx significant for history of CAD status post stenting who present to ER with a history of 2 weeks cough and trouble breathing. Patient was not vaccinated for COVID-19. Patient was diagnosed with COVID-19 on , he was seen at the [place], was tested positive for COVID-19. Patient came in today because of worsening trouble breathing. His oxygen sat uration was 87% on room air. Patient denies history of diabetic, denies history of smoking denies history of COPD, not on oxygen at home. 05/20/2021 No acute events overnight. Patient now requiring 8 L nasal cannula to saturate 97%. Patient is more short of breath. Remdesivir initiated. No concerns nursing at this time. Patient's chart, labs, images were reviewed and discussed with RN 05/21/12 Patient seen and examined at bedside. He was on 6 L nasal cannula saturating well. Was still feeling more fatigued and just generalized illness. Having some new onset upper abdominal pain, will start Pepcid and as needed GI cocktail. Adding antibiotics today today, repeat chest x-ray, plan of care discussed with resident. 05/22/21 Patient seen and examined at bedside. He was on 4 L nasal cannula maintaining good saturations. Somewhat improved but overall feels fatigued still. Continue Covid protocol. Pulmonary consulted. Plan of care discussed with bedside nurse 05/23/2021 No acute events overnight. Patient seen and examined bedside. Saturating 98% on 8 L nasal cannula. Pulmonology was consulted and recommended to continue current management for Covid. Currently on IV Remdesivir. Patient's chart, labs, images were reviewed and discussed with RN 05/24/2021 No acute events overnight. Patient seen examined bedside. Patient saturating 98% on 10 L nasal cannula. Still short of breath during speaking. CT abdomen pelvis ordered today to evaluate lesion on the kidney. Patient still does not know what is the cause of his renal failure. No history of hypertension or diabetes. Neurology has been consulted. Pending further evaluation. 05/25/2021 No acute events overnight. Patient saturating 95% on 15 L nonrebreather. Switch IV fluids to D5W at 75 cc/h. Patient's chart, labs, images were reviewed and discussed with RN Afebrile. Vomited after paroxysmal coughing this morning. His mood is a little bit depressed. O2 saturation 96% on 15 L nonrebreather. Vitals/I&O Vitals/I&O: Vital Signs Date Time Temp Pulse Resp B/P (MAP) Pulse Ox O2 Delivery O2 Flow Rate FiO2 05/26/21 03:00 97.0 52 20 162/88 (112) 94 15.0 97.0 05/25/21 23:00 NonRebreather Mask I & O 05/25/21 05/25/21 05/26/21 15:00 23:00 07:00 Intake Total 120 ml 600 ml Output Total 700 ml 600 ml 250 ml Balance -580 ml 0 ml -250 ml Physical Exam General: Alert, Oriented X3, Cooperative, No acute distress Heart: Regular rate, Normal S1, Normal S2 Abdomen: Normal bowel sounds, No tenderness Extremities: No clubbing Skin: No breakdown Assessment and Plan Assessmemt and Plan Problems Medical Problems: (1) Hypoxia Status: Acute (2) Pneumonia due to COVID-19 virus Status: Acute Comment Review of Relevant I have reviewed the following items fawn (where applicable) has been applied. Medications: Current Medications Medications (Trade) Dose Ordered Sig/Kerri Route PRN Reason Start Time Stop Time Status Last Admin Dose Admin Sodium Chloride 1,000 ml @ 75 mls/hr [id number] IV 05/25/21 08:15 05/25/21 10:34 DC 05/25/21 08:54 Dextrose 1,000 ml @ 75 mls/hr [id number] IV 05/25/21 10:45 05/26/21 00:09 Justifications for Admission Other Justification COVID-19 pneumonia FENG DE LA TORRE MD May 26, 2021 07:33
[2021-05-26] MEDS: AZITHROMYCIN 500 MG in IV NORMAL SALINE 250ML 250 ML IV SCH (09:54)
[2021-05-26] MEDS: ENOXAPARIN 40 MG/0.4 ML SYRINGE. SQ SCH (09:54)
[2021-05-26] MEDS: THIAMINE 100 MG TABLET. PO SCH (09:55)
[2021-05-26] MEDS: LACTOBACILLUS RHAMNOSUS GG 1 CAPSULE. PO SCH ×2 (09:55→21:10)
[2021-05-26] MEDS: ZINC SULFATE 220 MG CAPSULE. PO SCH (09:55)
[2021-05-26] MEDS: ASPIRIN CHEWABLE 81 MG TABLET. PO SCH (09:55)
[2021-05-26] MEDS: ASCORBIC ACID 1,000 MG TABLET PO SCH ×3 (09:56→21:11)
[2021-05-26] MEDS: SERTRALINE 50 MG TABLET. PO SCH (09:57)
[2021-05-26] MEDS: ALLOPURINOL 100 MG TABLET. PO SCH ×2 (09:57→21:11)
[2021-05-26] MEDS: PANTOPRAZOLE 40 MG TABLET.DR. PO SCH (09:57)
[2021-05-26] MEDS: FAMOTIDINE 20 MG TABLET. PO SCH ×2 (10:08→21:12)
--- NOTE | 2021-05-26 10:27 | PDOC ---
Renal-Progress Notes Subjective Notes Notes CONFUSED History of Present Illness Hx of present illness NO NEW COMPLAINTS Vitals Vitals Vital Signs Date Time Temp Pulse Resp B/P (MAP) Pulse Ox O2 Delivery O2 Flow Rate FiO2 05/26/21 09:57 68 148/90 05/26/21 07:00 97.0 24 94 NonRebreather Mask 15.0 97.0 Weight Weight [ ] I.O. Intake and Output Intake and Output 05/26/21 07:00 Intake Total 720 ml Output Total 1550 ml Balance -830 ml Intake Oral 320 ml Blood Product IV Normal Saline Flush 400 ml Output Urine Total 1550 ml # Voids 1 Micro Micro Microbiology 05/18/21 Blood Culture - Final, Complete NO GROWTH AFTER 5 DAYS Review of Systems Constitutional: yes: weakness, alert, oriented Ears/Nose/Throat: Yes: no symptom reported Eyes: Yes: no symptom reported Pulmonary: Yes dyspnea Cardiovascular: Yes no symptom reported Gastrointestional: Yes: no symptom reported Genitourinary: Yes: no symptom reported Musculoskeletal: Yes: no symptom reported Skin: Yes no symptom reported Psychiatric/Neurological: Yes: no symptom reported Physical Exam General Appearance: no apparent distress Skin: warm Respiratory: decreased breath sounds Heart: S1S2 Abdomen: soft, bowel sounds present Genitourinary: bladder flat Extremities: pulses present Neurology: alert Assessment Assessment Assessment/Plan RENAL FAILURE-DARIANA VS CKD-CR STABLE AT 1.4 HYPERNATREMIA MILD PROTEINURIA MILD HEMATURIA HYPOXIA ACUTE RESP FAILURE COVID 19 PNEUMONIA LEUCOCYTOSIS-PROB DEMARGINATION OBESITY ? LEFT RENAL MASS-PROB BENIGN PLAN CONT TO TX COVID 19 SUPPLEMENTAL O2 RENAL SONOGRAM F/U IN SIX MONTHS HYDRATION NEEDED CONT D5W WILL FOLLOW GERTRUDE PARKER MD May 26, 2021 10:27
--- NOTE | 2021-05-26 10:35 | NUR ---
SW following. Discussed with RN, pt from home with , 13L, regular diet. COVID-19 positive. Renal consult and CT needed. SW will continue to follow.
[2021-05-26 11:00] VITALS: BP 145/85
[2021-05-26 12:29] LABS: CALCIUM 9.4 mg/dL (8.5-10.1); CREATININE 1.2 mg/dL (0.7-1.3); GFR 75.8; POTASSIUM 4.8 mmol/L (3.5-5.1)
[2021-05-26] MEDS: cefTRIAXone IV Push 1 GM VIAL. IVP SCH (14:35)
[2021-05-26 15:00] VITALS: BP 147/68
--- NOTE | 2021-05-26 16:54 | RAD ---
Examination: CT abdomen pelvis without contrast HISTORY: History of renal lesion COMPARISON: None available Technique: Axial CT images of the abdomen pelvis were performed without contrast. Coronal and sagitta l reformats are performed Exposure: One or more of the following individualized dose reduction techniques were utilized for thi s examination: 1. Automated exposure control 2. Adjustment of the mA and/or kV according to patient size 3. Use of iterative reconstruction technique FINDINGS: There are diffuse partially visualized airspace opacities identified in the right middle lobe, left l ingular and bibasilar lungs likely infiltrates. No evidence of free air identified in the abdomen. Th e evaluation of the solid organs is limited due to lack of IV contrast. The evaluation of bowel is li mited due to lack of oral contrast. Examination is very limited due to significant motion artifact. T he visualized noncontrasted liver, spleen, adrenals grossly appears unremarkable. The gallbladder is mildly distended. Surgical changes identified in the stomach. The visualized pancreas grossly appears unremarkable. The small bowel is nondilated. Liquid stool identified in the colon throughout. The vi sualized appendix is unremarkable. The urinary bladder is mildly distended. Punctate 2 mm calcificati on identified in the right kidney probably calculus. Obvious renal lesion is not evident however exam ination is severely limited due to significant motion artifact. Mild degenerative changes identified in the thoracic and lumbar spine. There is linear soft tissue calcification measuring 8 cm identified just lateral to the left hip joint probably heterotopic ossification. IMPRESSION: 1. Punctate 2 mm calcification identified in the right kidney probably calculus. Obvious renal lesio n is not evident however examination is severely limited due to significant motion artifact. Consider follow-up CT with IV contrast, if clinically feasible. 2. Diffuse partially visualized airspace opacities identified in the right middle lobe, left lingula r and bibasilar lungs likely infiltrates. Follow-up to resolution. 3. 8 cm linear soft tissue calcification identified just lateral to the left hip joint probably hete rotopic ossification. Electronically signed by: Omar Leon MD (05/26/2021 4:51 PM) [id number]
[2021-05-26 19:00] VITALS: BP 137/87
[2021-05-26] MEDS: TOPIRAMATE 100 MG TABLET. PO SCH (21:11)
[2021-05-26 23:00] VITALS: BP 135/89
[2021-05-27 03:00] VITALS: BP_SYST 137
[2021-05-27] MEDS: methylPREDNISolone SOD SUCC PF 125 MG/2 ML VIAL. IV SCH ×3 (06:10→21:21)
[2021-05-27 07:00] VITALS: BP 144/86
--- NOTE | 2021-05-27 09:58 | PDOC ---
PULMONARY PROGRESS NOTES DATE: 05/27/21 TIME: 09:56 Subjective Patient was on 15 L nonrebreather mask. Feels weak and tired. Vitals Vital Signs Date Time Temp Pulse Resp B/P (MAP) Pulse Ox O2 Delivery O2 Flow Rate FiO2 05/27/21 07:00 98.4 66 18 144/86 (105) 94 NonRebreather Mask 15.0 98.4 Comments Visual exam done due to COVID-19. No paradoxical breathing. No skin rash no leg edema. General: Alert, No acute distress Labs Laboratory Tests Test 05/26/21 11:55 Sodium Level 145 mmol/L (136-145) Potassium Level 4.8 mmol/L (3.5-5.1) Chloride Level 115 mmol/L (98-107) Carbon Dioxide Level 19 mmol/L (21-32) Anion Gap 11 (6-14) Blood Urea Nitrogen 46 mg/dL (8-26) Creatinine 1.2 mg/dL (0.7-1.3) Estimated GFR (Cockcroft-Gault) 75.8 Glucose Level 166 mg/dL (70-99) Calcium Level 9.4 mg/dL (8.5-10.1) Laboratory Tests Test 05/26/21 11:55 Sodium Level 145 mmol/L (136-145) Potassium Level 4.8 mmol/L (3.5-5.1) Chloride Level 115 mmol/L (98-107) Carbon Dioxide Level 19 mmol/L (21-32) Anion Gap 11 (6-14) Blood Urea Nitrogen 46 mg/dL (8-26) Creatinine 1.2 mg/dL (0.7-1.3) Estimated GFR (Cockcroft-Gault) 75.8 Glucose Level 166 mg/dL (70-99) Calcium Level 9.4 mg/dL (8.5-10.1) Medications Active Scripts Medications Dose Route/Sig Max Daily Dose Days Date Category Hydrocodone-Acetamin 7.5-325 (Hydrocodone/Acetaminophen) 1 Each Tablet 1 Each PO Q6HRS PRN 05/18/21 Reported [percocet] Unknown Strength Unknown Dose 05/18/21 Reported [tramadol] Unknown Strength Unknown Dose 05/18/21 Reported Melatonin 10 Mg Capsule 1 Cap PO QHS 30 05/18/21 Reported Topiramate 50 Mg Tablet 3 Tab PO HS 30 05/18/21 Reported Zoloft (Sertraline Hcl) 50 Mg Tablet 1 Tab PO DAILY 05/18/21 Reported Amlodipine Besylate 10 Mg Tablet 10 Mg PO DAILY 05/18/21 Reported Allopurinol 100 Mg Tablet 1 Tab PO BID 05/18/21 Reported Tessalon Perle (Benzonatate) 100 Mg Capsule 1 Cap PO DAILY 05/18/21 Reported Proair Hfa Inhaler (Albuterol Sulfate) 8.5 Gm Hfa.aer.ad 2 Puff IH PRN Q4-6HRS PRN 21 05/18/21 Reported Aspirin 81 Mg Tab.chew 81 Mg PO DAILY 05/18/21 Reported Impression . 1. Acute hypoxic respiratory failure secondary to COVID-19 viral pneumonia./Acute lung injury/early ARDS. 2. Abnormal chest x-ray with bilateral patchy interstitial infiltrates consistent with COVID-19 viral pneumonia. 3. No significant tobacco history. 4. Acute kidney injury likely related to volume contraction. The patient has been having diarrhea. 5. Leukocytosis without any fever, likely due to steroids. We will monitor closely and leave him on empiric antibiotics. Plan . RECOMMENDATIONS: 1. Continue present oxygen via nonrebreather mask at 15 L. 2. Continue with remdesivir full course. 3. Continue IV Solu-Medrol for a total of 10-day course. 4. Lovenox for deep venous thrombosis prophylaxis. 5. Empiric antibiotic. 6. Monitor white cell count and follow for any new fever. 7. Discussed advanced directives with the patient and he would like to be on a ventilator in case if his hypoxia worsens. He is a full code. Discussed with RN. STACY EASON MD May 27, 2021 09:58
[2021-05-27] MEDS: THIAMINE 100 MG TABLET. PO SCH (10:35)
[2021-05-27] MEDS: ENOXAPARIN 40 MG/0.4 ML SYRINGE. SQ SCH (10:35)
[2021-05-27] MEDS: ASCORBIC ACID 1,000 MG TABLET PO SCH ×3 (10:35→21:00)
[2021-05-27] MEDS: ALLOPURINOL 100 MG TABLET. PO SCH ×2 (10:36→21:00)
[2021-05-27] MEDS: SERTRALINE 50 MG TABLET. PO SCH (10:36)
[2021-05-27] MEDS: PANTOPRAZOLE 40 MG TABLET.DR. PO SCH (10:36)
[2021-05-27] MEDS: FAMOTIDINE 20 MG TABLET. PO SCH ×2 (10:36→21:00)
[2021-05-27] MEDS: ASPIRIN CHEWABLE 81 MG TABLET. PO SCH (10:36)
[2021-05-27] MEDS: LACTOBACILLUS RHAMNOSUS GG 1 CAPSULE. PO SCH ×2 (10:37→21:00)
[2021-05-27] MEDS: ZINC SULFATE 220 MG CAPSULE. PO SCH (10:37)
[2021-05-27] MEDS: AZITHROMYCIN 500 MG in IV NORMAL SALINE 250ML 250 ML IV SCH (10:39)
[2021-05-27] MEDS: IV DEXTROSE 5% 1,000 ML IV SCH ×2 (10:41→21:25)
[2021-05-27 11:00] VITALS: BP 142/91
--- NOTE | 2021-05-27 11:39 | PDOC ---
Renal-Progress Notes Subjective Notes Notes NON NEW COMPLAINTS Vitals Vitals Vital Signs Date Time Temp Pulse Resp B/P (MAP) Pulse Ox O2 Delivery O2 Flow Rate FiO2 05/27/21 10:37 66 144/86 05/27/21 07:00 98.4 18 94 NonRebreather Mask 15.0 98.4 Weight Weight [ ] I.O. Intake and Output Intake and Output 05/27/21 07:00 Intake Total 800 ml Output Total 400 ml Balance 400 ml Intake Oral 300 ml Other 500 ml Output Urine Total 400 ml # Voids 1 Labs Labs Laboratory Tests Test 05/26/21 11:55 Sodium Level 145 mmol/L (136-145) Potassium Level 4.8 mmol/L (3.5-5.1) Chloride Level 115 mmol/L (98-107) Carbon Dioxide Level 19 mmol/L (21-32) Anion Gap 11 (6-14) Blood Urea Nitrogen 46 mg/dL (8-26) Creatinine 1.2 mg/dL (0.7-1.3) Estimated GFR (Cockcroft-Gault) 75.8 Glucose Level 166 mg/dL (70-99) Calcium Level 9.4 mg/dL (8.5-10.1) Micro Micro Microbiology 05/18/21 Blood Culture - Final, Complete NO GROWTH AFTER 5 DAYS Review of Systems Constitutional: yes: weakness, alert, oriented Ears/Nose/Throat: Yes: no symptom reported Eyes: Yes: no symptom reported Pulmonary: Yes dyspnea Cardiovascular: Yes no symptom reported Gastrointestional: Yes: no symptom reported Genitourinary: Yes: no symptom reported Musculoskeletal: Yes: no symptom reported Skin: Yes no symptom reported Psychiatric/Neurological: Yes: no symptom reported Physical Exam General Appearance: no apparent distress Skin: warm Respiratory: decreased breath sounds Heart: S1S2 Abdomen: soft, bowel sounds present Genitourinary: bladder flat Extremities: pulses present Neurology: alert Assessment Assessment Assessment/Plan RENAL FAILURE-DARIANA VS CKD-CR STABLE AT 1.4 HYPERNATREMIA-RESOLVING MILD PROTEINURIA MILD HEMATURIA HYPOXIA ACUTE RESP FAILURE COVID 19 PNEUMONIA LEUCOCYTOSIS-PROB DEMARGINATION OBESITY ? LEFT RENAL MASS-PROB BENIGN PLAN CONT TO TX COVID 19 SUPPLEMENTAL O2 RENAL SONOGRAM F/U IN SIX MONTHS HYDRATION NEEDED CONT D5W WILL FOLLOW GERTRUDE PARKER MD May 27, 2021 11:39
--- NOTE | 2021-05-27 11:58 | PDOC ---
[facility] PROGRESS NOTE Date of Service DOS: DATE: 05/27/21 TIME: 11:57 Chief Complaint Chief Complaint Acute hypoxic respiratory failure COVID-19 pneumonia DARIANA due to vasomotor nephropathy, possible undiagnosed CKD Obesity class I Hypernatremia Nephrology consult for acute on chronic kidney disease Continue remdesivir Pulmonology consult Continue Zosyn Continue IV thiamine and vitamin C IV Solu-Medrol Daily Pending ferritin, LDH, CRP, D-dimer labs Titrate O2 supplementation to maintain O2 saturation greater than 92% Lovenox for DVT prophylaxis Protonix while on steroids GI prophylaxis ADA diet Full code Discussed with RN and SW Disposition inpatient management as above Surrogate decision maker is the History of Present Illness History of Present Illness Mr Parson is a 55 year old male w/ PMHx significant for history of CAD status post stenting who present to ER with a history of 2 weeks cough and trouble breathing. Patient was not vaccinated for COVID-19. Patient was diagnosed with COVID-19 on , he was seen at the [place], was tested positive for COVID-19. Patient came in today because of worsening trouble breathing. His oxygen sat uration was 87% on room air. Patient denies history of diabetic, denies history of smoking denies history of COPD, not on oxygen at home. 05/20/2021 No acute events overnight. Patient now requiring 8 L nasal cannula to saturate 97%. Patient is more short of breath. Remdesivir initiated. No concerns nursing at this time. Patient's chart, labs, images were reviewed and discussed with RN 05/21/12 Patient seen and examined at bedside. He was on 6 L nasal cannula saturating well. Was still feeling more fatigued and just generalized illness. Having some new onset upper abdominal pain, will start Pepcid and as needed GI cocktail. Adding antibiotics today today, repeat chest x-ray, plan of care discussed with resident. 05/22/21 Patient seen and examined at bedside. He was on 4 L nasal cannula maintaining good saturations. Somewhat improved but overall feels fatigued still. Continue Covid protocol. Pulmonary consulted. Plan of care discussed with bedside nurse 05/23/2021 No acute events overnight. Patient seen and examined bedside. Saturating 98% on 8 L nasal cannula. Pulmonology was consulted and recommended to continue current management for Covid. Currently on IV Remdesivir. Patient's chart, labs, images were reviewed and discussed with RN 05/24/2021 No acute events overnight. Patient seen examined bedside. Patient saturating 98% on 10 L nasal cannula. Still short of breath during speaking. CT abdomen pelvis ordered today to evaluate lesion on the kidney. Patient still does not know what is the cause of his renal failure. No history of hypertension or diabetes. Neurology has been consulted. Pending further evaluation. 05/25/2021 No acute events overnight. Patient saturating 95% on 15 L nonrebreather. Switch IV fluids to D5W at 75 cc/h. Patient's chart, labs, images were reviewed and discussed with RN 05/26: Afebrile. Vomited after paroxysmal coughing this morning. His mood is a little bit depressed. O2 saturation 96% on [address] abdomen pelvis with now acute abdominal findings. Feel most nauseated today, vomiting after coughing. Feels weak and tired on 15 L. Vitals/I&O Vitals/I&O: Vital Signs Date Time Temp Pulse Resp B/P (MAP) Pulse Ox O2 Delivery O2 Flow Rate FiO2 05/27/21 10:37 66 144/86 05/27/21 07:00 98.4 18 94 NonRebreather Mask 15.0 98.4 I & O 05/26/21 05/26/21 05/27/21 15:00 23:00 07:00 Intake Total 800 ml Output Total 400 ml 0 ml Balance 400 ml 0 ml Physical Exam General: Alert, Oriented X3, Cooperative, No acute distress Heart: Regular rate, Normal S1, Normal S2 Abdomen: Normal bowel sounds, No tenderness Extremities: No clubbing Skin: No breakdown Assessment and Plan Assessmemt and Plan Problems Medical Problems: (1) Hypoxia Status: Acute (2) Pneumonia due to COVID-19 virus Status: Acute Comment Review of Relevant I have reviewed the following items fawn (where applicable) has been applied. Justifications for Admission Other Justification COVID-19 pneumonia FENG DE LA TORRE MD May 27, 2021 11:58
[2021-05-27] MEDS: cefTRIAXone IV Push 1 GM VIAL. IVP SCH (14:23)
[2021-05-27 15:00] VITALS: BP 147/82
[2021-05-27 17:10] LABS: CALCIUM 9.1 mg/dL (8.5-10.1); CREATININE 1.2 mg/dL (0.7-1.3); GFR 75.8; POTASSIUM 4.6 mmol/L (3.5-5.1)
[2021-05-27 19:00] VITALS: BP 142/88
[2021-05-27] MEDS: TOPIRAMATE 100 MG TABLET. PO SCH (21:00)
[2021-05-27 23:00] VITALS: BP 147/89
[2021-05-28 03:00] VITALS: BP 145/101
[2021-05-28] MEDS: methylPREDNISolone SOD SUCC PF 125 MG/2 ML VIAL. IV SCH ×3 (06:18→22:43)
[2021-05-28 07:00] VITALS: BP 155/117
--- NOTE | 2021-05-28 08:16 | PDOC ---
[facility] PROGRESS NOTE Date of Service DOS: DATE: 05/28/21 TIME: 08:16 Chief Complaint Chief Complaint Acute hypoxic respiratory failure COVID-19 pneumonia DARIANA due to vasomotor nephropathy, possible undiagnosed CKD Obesity class I Hypernatremia Nephrology consult for acute on chronic kidney disease Continue remdesivir Pulmonology consult Continue Zosyn Continue IV thiamine and vitamin C IV Solu-Medrol Daily Pending ferritin, LDH, CRP, D-dimer labs Titrate O2 supplementation to maintain O2 saturation greater than 92% Lovenox for DVT prophylaxis Protonix while on steroids GI prophylaxis ADA diet Full code Discussed with RN and SW Disposition inpatient management as above Surrogate decision maker is the History of Present Illness History of Present Illness Mr Parson is a 55 year old male w/ PMHx significant for history of CAD status post stenting who present to ER with a history of 2 weeks cough and trouble breathing. Patient was not vaccinated for COVID-19. Patient was diagnosed with COVID-19 on , he was seen at the [place], was tested positive for COVID-19. Patient came in today because of worsening trouble breathing. His oxygen sat uration was 87% on room air. Patient denies history of diabetic, denies history of smoking denies history of COPD, not on oxygen at home. 05/20/2021 No acute events overnight. Patient now requiring 8 L nasal cannula to saturate 97%. Patient is more short of breath. Remdesivir initiated. No concerns nursing at this time. Patient's chart, labs, images were reviewed and discussed with RN 05/21/12 Patient seen and examined at bedside. He was on 6 L nasal cannula saturating well. Was still feeling more fatigued and just generalized illness. Having some new onset upper abdominal pain, will start Pepcid and as needed GI cocktail. Adding antibiotics today today, repeat chest x-ray, plan of care discussed with resident. 05/22/21 Patient seen and examined at bedside. He was on 4 L nasal cannula maintaining good saturations. Somewhat improved but overall feels fatigued still. Continue Covid protocol. Pulmonary consulted. Plan of care discussed with bedside nurse 05/23/2021 No acute events overnight. Patient seen and examined bedside. Saturating 98% on 8 L nasal cannula. Pulmonology was consulted and recommended to continue current management for Covid. Currently on IV Remdesivir. Patient's chart, labs, images were reviewed and discussed with RN 05/24/2021 No acute events overnight. Patient seen examined bedside. Patient saturating 98% on 10 L nasal cannula. Still short of breath during speaking. CT abdomen pelvis ordered today to evaluate lesion on the kidney. Patient still does not know what is the cause of his renal failure. No history of hypertension or diabetes. Neurology has been consulted. Pending further evaluation. 05/25/2021 No acute events overnight. Patient saturating 95% on 15 L nonrebreather. Switch IV fluids to D5W at 75 cc/h. Patient's chart, labs, images were reviewed and discussed with RN 05/26: Afebrile. Vomited after paroxysmal coughing this morning. His mood is a little bit depressed. O2 saturation 96% on 15 L nonrebreather. 05/27: CT abdomen pelvis with no acute abdominal findings. Feel most nauseated today, vomiting after coughing. Feels weak and tired on 15 L. Afebrile. No further vomiting. Still very weak requiring 15 L non-rebreather Vitals/I&O Vitals/I&O: Vital Signs Date Time Temp Pulse Resp B/P (MAP) Pulse Ox O2 Delivery O2 Flow Rate FiO2 05/28/21 07:00 97.4 68 18 155/117 (130) 97 NonRebreather Mask 15.0 97.4 I & O 05/27/21 05/27/21 05/28/21 15:00 23:00 07:00 Intake Total 1300 ml 250 ml 600 ml Output Total 500 ml Balance 1300 ml 250 ml 100 ml Physical Exam General: Alert, Oriented X3, Cooperative, No acute distress Heart: Regular rate, Normal S1, Normal S2 Abdomen: Normal bowel sounds, No tenderness Extremities: No clubbing Skin: No breakdown Labs Labs: Laboratory Tests Test 05/27/21 16:45 Sodium Level 148 mmol/L (136-145) Potassium Level 4.6 mmol/L (3.5-5.1) Chloride Level 113 mmol/L (98-107) Carbon Dioxide Level 26 mmol/L (21-32) Anion Gap 9 (6-14) Blood Urea Nitrogen 41 mg/dL (8-26) Creatinine 1.2 mg/dL (0.7-1.3) Estimated GFR (Cockcroft-Gault) 75.8 Glucose Level 173 mg/dL (70-99) Calcium Level 9.1 mg/dL (8.5-10.1) Assessment and Plan Assessmemt and Plan Problems Medical Problems: (1) Hypoxia Status: Acute (2) Pneumonia due to COVID-19 virus Status: Acute Comment Review of Relevant I have reviewed the following items fawn (where applicable) has been applied. Justifications for Admission Other Justification COVID-19 pneumonia FENG DE LA TORRE MD May 28, 2021 08:16
[2021-05-28] MEDS: ASPIRIN CHEWABLE 81 MG TABLET. PO SCH (08:55)
[2021-05-28] MEDS: IV DEXTROSE 5% 1,000 ML IV SCH ×2 (08:55→14:40)
[2021-05-28] MEDS: ENOXAPARIN 40 MG/0.4 ML SYRINGE. SQ SCH (08:55)
[2021-05-28] MEDS: SERTRALINE 50 MG TABLET. PO SCH (08:55)
[2021-05-28] MEDS: AZITHROMYCIN 500 MG in IV NORMAL SALINE 250ML 250 ML IV SCH ×2 (08:56→18:43)
[2021-05-28] MEDS: PANTOPRAZOLE 40 MG TABLET.DR. PO SCH (08:56)
[2021-05-28] MEDS: ZINC SULFATE 220 MG CAPSULE. PO SCH (09:00)
[2021-05-28] MEDS: ALLOPURINOL 100 MG TABLET. PO SCH ×2 (09:00→22:43)
[2021-05-28] MEDS: THIAMINE 100 MG TABLET. PO SCH (09:00)
[2021-05-28] MEDS: ASCORBIC ACID 1,000 MG TABLET PO SCH ×3 (09:00→19:23)
[2021-05-28] MEDS: FAMOTIDINE 20 MG TABLET. PO SCH ×2 (09:00→22:43)
[2021-05-28] MEDS: LACTOBACILLUS RHAMNOSUS GG 1 CAPSULE. PO SCH ×2 (09:00→22:43)
[2021-05-28 09:36] LABS: MAGNESIUM 2.6 mg/dL (1.8-2.4); PHOSPHORUS 3.9 mg/dL (2.6-4.7)
[2021-05-28 09:37] LABS: CALCIUM 9.5 mg/dL (8.5-10.1); CREATININE 0.9 mg/dL (0.7-1.3); GFR 105.6; POTASSIUM 4.8 mmol/L (3.5-5.1)
--- NOTE | 2021-05-28 10:40 | PDOC ---
Renal-Progress Notes Subjective Notes Notes NO NEW COMPLAINTS History of Present Illness Hx of present illness STABLE Vitals Vitals Vital Signs Date Time Temp Pulse Resp B/P (MAP) Pulse Ox O2 Delivery O2 Flow Rate FiO2 05/28/21 08:55 68 155/117 05/28/21 07:00 97.4 18 97 NonRebreather Mask 15.0 97.4 Weight Weight [ ] I.O. Intake and Output Intake and Output 05/28/21 07:00 Intake Total 2150 ml Output Total 500 ml Balance 1650 ml Intake Oral 900 ml IV Total 1250 ml Output Urine Total 500 ml # Voids 4 Labs Labs Laboratory Tests Test 05/27/21 16:45 05/28/21 08:50 Sodium Level 148 mmol/L (136-145) 146 mmol/L (136-145) Potassium Level 4.6 mmol/L (3.5-5.1) 4.8 mmol/L (3.5-5.1) Chloride Level 113 mmol/L (98-107) 113 mmol/L (98-107) Carbon Dioxide Level 26 mmol/L (21-32) 25 mmol/L (21-32) Anion Gap 9 (6-14) 8 (6-14) Blood Urea Nitrogen 41 mg/dL (8-26) 39 mg/dL (8-26) Creatinine 1.2 mg/dL (0.7-1.3) 0.9 mg/dL (0.7-1.3) Estimated GFR (Cockcroft-Gault) 75.8 105.6 Glucose Level 173 mg/dL (70-99) 149 mg/dL (70-99) Calcium Level 9.1 mg/dL (8.5-10.1) 9.5 mg/dL (8.5-10.1) Phosphorus Level 3.9 mg/dL (2.6-4.7) Magnesium Level 2.6 mg/dL (1.8-2.4) Micro Micro Microbiology 05/18/21 Blood Culture - Final, Complete NO GROWTH AFTER 5 DAYS Review of Systems Constitutional: yes: weakness, alert, oriented Ears/Nose/Throat: Yes: no symptom reported Eyes: Yes: no symptom reported Pulmonary: Yes dyspnea Cardiovascular: Yes no symptom reported Gastrointestional: Yes: no symptom reported Genitourinary: Yes: no symptom reported Musculoskeletal: Yes: no symptom reported Skin: Yes no symptom reported Psychiatric/Neurological: Yes: no symptom reported Physical Exam General Appearance: no apparent distress Skin: warm Respiratory: decreased breath sounds Heart: S1S2 Abdomen: soft, bowel sounds present Genitourinary: bladder flat Extremities: pulses present Neurology: alert Assessment Assessment Assessment/Plan RENAL FAILURE-DARIANA - RESOLVED HYPERNATREMIA-RESOLVING MILD PROTEINURIA MILD HEMATURIA HYPOXIA ACUTE RESP FAILURE COVID 19 PNEUMONIA LEUCOCYTOSIS-PROB DEMARGINATION OBESITY ? LEFT RENAL MASS-PROB BENIGN PLAN CONT TO TX COVID 19 SUPPLEMENTAL O2 RENAL SONOGRAM F/U IN SIX MONTHS HYDRATION NEEDED CONT D5W ENC PO WILL FOLLOW GERTRUDE PARKER MD May 28, 2021 10:40
[2021-05-28 11:00] VITALS: BP 132/78
--- NOTE | 2021-05-28 11:04 | NUR ---
Patients daughter Dorothy called and stated patient had texted her uncle telling him that pt could not breath and that he had an accident. She asked if someone could go into the room and check on the patient. This RN went into patients room and patient is awake and talking on the phone. Patient actually converses with this RN. Earlier this RN could barely get a word out of him. RN asked patient how he was doing? If he was short of breath or if he had an accident, since his daughter called stating he did. Patient stated that was a while back and he was doing fine now. RN told patient that he needs to call us if he is short of breath or needs anything. Call light was left on patient lap. Daughter Dorothy was called back and given an update.
--- NOTE | 2021-05-28 13:56 | NUR ---
SW following. Discussed with RN, pt from home, 15L NRB. PICC line being placed due to pt being a hard stick. COVID-19 positive. RN advised no SW needs at this time. SW will continue to follow.
[2021-05-28 15:00] VITALS: BP 146/98
[2021-05-28] MEDS: cefTRIAXone IV Push 1 GM VIAL. IVP SCH (18:42)
[2021-05-28 19:00] VITALS: BP 123/79
[2021-05-28] MEDS: TOPIRAMATE 100 MG TABLET. PO SCH (22:43)
[2021-05-28 23:00] VITALS: BP 145/72
--- NOTE | 2021-05-28 23:16 | RAD ---
Exam: Chest one view INDICATION: Confirm PICC placement TECHNIQUE: Frontal view of the chest Comparisons: 05/24/2021 FINDINGS: Left-sided PICC with tip at the SVC. The cardiomediastinal silhouette and pulmonary vessels are within normal limits. Patchy bibasilar airspace disease. No pleural effusion IMPRESSION: 1. Lines and tubes described above. 2. Patchy bilateral airspace disease similar when compared to prior exam Electronically signed by: Rajinder Lawrence MD (05/28/2021 11:13 PM) [facility]
[2021-05-29] MEDS: IV DEXTROSE 5% 1,000 ML IV SCH ×4 (00:40→21:47)
[2021-05-29 03:00] VITALS: BP 168/83
[2021-05-29] MEDS: methylPREDNISolone SOD SUCC PF 125 MG/2 ML VIAL. IV SCH ×3 (06:38→21:50)
[2021-05-29 07:00] VITALS: BP 145/94
--- NOTE | 2021-05-29 07:34 | PDOC ---
[employer] PROGRESS NOTE Date of Service DOS: DATE: 05/29/21 TIME: 07:28 Chief Complaint Chief Complaint Acute hypoxic respiratory failure COVID-19 pneumonia DARIANA due to vasomotor nephropathy, possible undiagnosed CKD Obesity class I Hypernatremia Nephrology consult for acute on chronic kidney disease Continue remdesivir Pulmonology consult Continue Zosyn Continue IV thiamine and vitamin C IV Solu-Medrol Daily Pending ferritin, LDH, CRP, D-dimer labs Titrate O2 supplementation to maintain O2 saturation greater than 92% Lovenox for DVT prophylaxis Protonix while on steroids GI prophylaxis ADA diet Full code Discussed with RN and SW Disposition inpatient management as above Surrogate decision maker is the History of Present Illness History of Present Illness Mr Parson is a 55 year old male w/ PMHx significant for history of CAD status post stenting who present to ER with a history of 2 weeks cough and trouble breathing. Patient was not vaccinated for COVID-19. Patient was diagnosed with COVID-19 on , he was seen at the [facility], was tested positive for COVID-19. Patient came in today because of worsening trouble breathing. His oxygen sat uration was 87% on room air. Patient denies history of diabetic, denies history of smoking denies history of COPD, not on oxygen at home. 05/20: No acute events overnight. Patient now requiring 8 L nasal cannula to saturate 97%. Patient is more short of breath. Remdesivir initiated. No concerns nursing at this time. 05/21: On 6 L nasal cannula saturating well. Still feeling more fatigued and just generalized illness. Some new onset upper abdominal pain, will start Pepcid and as needed GI cocktail. 05/22: He was on 4 L nasal cannula maintaining good saturations. Somewhat improved but overall feels fatigued still. Continue Covid protocol. Pulmonary consulted. 05/23: No OE. Saturating 98% on 8 L nasal cannula. Pulmonology was consulted and recommended to continue current management for Covid. Currently on IV Remdesivir. 05/24: No acute events overnight. Patient seen examined bedside. Patient saturating 98% on 10 L nasal cannula. Still short of breath during speaking. CT abdomen pelvis ordered today to evaluate lesion on the kidney. Patient still does not know what is the cause of his renal failure. No history of hypertension or diabetes. Neurology has been consulted. 8/15: No acute events overnight. Patient saturating 95% on 15 L nonrebreather. Switch IV fluids to D5W at 75 cc/h. 05/26: Afebrile. Vomited after paroxysmal coughing this morning. His mood is a little bit depressed. O2 saturation 96% on 15 L nonrebreather. 05/27: CT abdomen pelvis with no acute abdominal findings. Feel most nauseated today, vomiting after coughing. Feels weak and tired on 15 L. 05/28: Afebrile. No further vomiting. Still very weak requiring 15 L non- rebreather. PICC line placed for IV access Afebrile. Still feeling weak. Now on 12 L nasal cannula oxygen with O2 saturations 91 to 94%. PICC functioning well. He is asking me to go home. K 5.3 Vitals/I&O Vitals/I&O: Vital Signs Date Time Temp Pulse Resp B/P (MAP) Pulse Ox O2 Delivery O2 Flow Rate FiO2 05/29/21 03:00 97.5 67 22 168/83 (111) 96 97.5 05/28/21 20:00 Non-Rebreather 15.0 I & O 05/28/21 05/28/21 05/29/21 15:00 23:00 07:00 Intake Total 540 ml 120 ml 240 ml Output Total 200 ml 200 ml Balance 340 ml -80 ml 240 ml Physical Exam General: Alert, Oriented X3, Cooperative, No acute distress Heart: Regular rate, Normal S1, Normal S2 Abdomen: Normal bowel sounds, No tenderness Extremities: No clubbing Skin: No breakdown Labs Labs: Laboratory Tests Test 05/28/21 08:50 Sodium Level 146 mmol/L (136-145) Potassium Level 4.8 mmol/L (3.5-5.1) Chloride Level 113 mmol/L (98-107) Carbon Dioxide Level 25 mmol/L (21-32) Anion Gap 8 (6-14) Blood Urea Nitrogen 39 mg/dL (8-26) Creatinine 0.9 mg/dL (0.7-1.3) Estimated GFR (Cockcroft-Gault) 105.6 Glucose Level 149 mg/dL (70-99) Calcium Level 9.5 mg/dL (8.5-10.1) Phosphorus Level 3.9 mg/dL (2.6-4.7) Magnesium Level 2.6 mg/dL (1.8-2.4) Assessment and Plan Assessmemt and Plan Problems Medical Problems: (1) Hypoxia Status: Acute (2) Pneumonia due to COVID-19 virus Status: Acute Comment Review of Relevant I have reviewed the following items fawn (where applicable) has been applied. Justifications for Admission Other Justification COVID-19 pneumonia FENG DE LA TORRE MD May 29, 2021 07:34
[2021-05-29 08:24] LABS: CALCIUM 9.4 mg/dL (8.5-10.1); CREATININE 1.1 mg/dL (0.7-1.3); GFR 83.8; POTASSIUM 5.3 mmol/L (3.5-5.1)
[2021-05-29] MEDS: ALLOPURINOL 100 MG TABLET. PO SCH ×2 (09:42→21:49)
[2021-05-29] MEDS: ASCORBIC ACID 1,000 MG TABLET PO SCH ×3 (09:42→21:49)
[2021-05-29] MEDS: PANTOPRAZOLE 40 MG TABLET.DR. PO SCH (09:42)
[2021-05-29] MEDS: ZINC SULFATE 220 MG CAPSULE. PO SCH (09:43)
[2021-05-29] MEDS: THIAMINE 100 MG TABLET. PO SCH (09:43)
[2021-05-29] MEDS: LACTOBACILLUS RHAMNOSUS GG 1 CAPSULE. PO SCH ×2 (09:43→21:49)
[2021-05-29] MEDS: SERTRALINE 50 MG TABLET. PO SCH (09:44)
[2021-05-29] MEDS: ASPIRIN CHEWABLE 81 MG TABLET. PO SCH (09:44)
[2021-05-29] MEDS: FAMOTIDINE 20 MG TABLET. PO SCH ×2 (09:44→21:49)
[2021-05-29] MEDS: AZITHROMYCIN 500 MG in IV NORMAL SALINE 250ML 250 ML IV SCH (09:46)
[2021-05-29] MEDS: ENOXAPARIN 40 MG/0.4 ML SYRINGE. SQ SCH (09:46)
--- NOTE | 2021-05-29 10:22 | PDOC ---
Renal-Progress Notes Subjective Notes Notes NO NEW COMPLAINTS History of Present Illness Hx of present illness STABLE Vitals Vitals Vital Signs Date Time Temp Pulse Resp B/P (MAP) Pulse Ox O2 Delivery O2 Flow Rate FiO2 05/29/21 09:43 70 145/94 05/29/21 07:00 97.2 20 95 97.2 05/28/21 20:00 Non-Rebreather 15.0 Weight Weight [ ] I.O. Intake and Output Intake and Output 05/29/21 07:00 Intake Total 900 ml Output Total 400 ml Balance 500 ml Intake Oral 900 ml Output Urine Total 400 ml Labs Labs Laboratory Tests Test 05/29/21 07:10 Sodium Level 144 mmol/L (136-145) Potassium Level 5.3 mmol/L (3.5-5.1) Chloride Level 111 mmol/L (98-107) Carbon Dioxide Level 26 mmol/L (21-32) Anion Gap 7 (6-14) Blood Urea Nitrogen 41 mg/dL (8-26) Creatinine 1.1 mg/dL (0.7-1.3) Estimated GFR (Cockcroft-Gault) 83.8 Glucose Level 150 mg/dL (70-99) Calcium Level 9.4 mg/dL (8.5-10.1) Micro Micro Microbiology 05/18/21 Blood Culture - Final, Complete NO GROWTH AFTER 5 DAYS Review of Systems Constitutional: yes: weakness, alert, oriented Ears/Nose/Throat: Yes: no symptom reported Eyes: Yes: no symptom reported Pulmonary: Yes dyspnea Cardiovascular: Yes no symptom reported Gastrointestional: Yes: no symptom reported Genitourinary: Yes: no symptom reported Musculoskeletal: Yes: no symptom reported Skin: Yes no symptom reported Psychiatric/Neurological: Yes: no symptom reported Physical Exam General Appearance: no apparent distress Skin: warm Respiratory: decreased breath sounds Heart: S1S2 Abdomen: soft, bowel sounds present Genitourinary: bladder flat Extremities: pulses present Neurology: alert Assessment Assessment Assessment/Plan RENAL FAILURE-DARIANA - RESOLVED HYPERNATREMIA-RESOLVED MILD HYPERKALEMIA MILD PROTEINURIA MILD HEMATURIA HYPOXIA ACUTE RESP FAILURE COVID 19 PNEUMONIA LEUCOCYTOSIS OBESITY ? LEFT RENAL MASS-PROB BENIGN PLAN K SHOULD CORRECT ITSELF CONT TO TX COVID 19 SUPPLEMENTAL O2 RENAL SONOGRAM F/U IN SIX MONTHS HYDRATION NEEDED ON ANTIBIOTICS CONT D5W ENC PO WILL FOLLOW GERTRUDE PARKER MD May 29, 2021 10:22
--- NOTE | 2021-05-29 10:23 | PDOC ---
PULMONARY PROGRESS NOTES DATE: 05/29/21 TIME: 10:23 Subjective Patient was on 15 L nonrebreather mask. Feels weak and tired. Vitals Vital Signs Date Time Temp Pulse Resp B/P (MAP) Pulse Ox O2 Delivery O2 Flow Rate FiO2 05/29/21 09:43 70 145/94 05/29/21 07:00 97.2 20 95 97.2 05/28/21 20:00 Non-Rebreather 15.0 Comments Visual exam done due to COVID-19. No paradoxical breathing. No skin rash no leg edema. General: Alert, No acute distress Labs Laboratory Tests Test 05/27/21 16:45 05/28/21 08:50 05/29/21 07:10 Sodium Level 148 mmol/L (136-145) 146 mmol/L (136-145) 144 mmol/L (136-145) Potassium Level 4.6 mmol/L (3.5-5.1) 4.8 mmol/L (3.5-5.1) 5.3 mmol/L (3.5-5.1) Chloride Level 113 mmol/L (98-107) 113 mmol/L (98-107) 111 mmol/L (98-107) Carbon Dioxide Level 26 mmol/L (21-32) 25 mmol/L (21-32) 26 mmol/L (21-32) Anion Gap 9 (6-14) 8 (6-14) 7 (6-14) Blood Urea Nitrogen 41 mg/dL (8-26) 39 mg/dL (8-26) 41 mg/dL (8-26) Creatinine 1.2 mg/dL (0.7-1.3) 0.9 mg/dL (0.7-1.3) 1.1 mg/dL (0.7-1.3) Estimated GFR (Cockcroft-Gault) 75.8 105.6 83.8 Glucose Level 173 mg/dL (70-99) 149 mg/dL (70-99) 150 mg/dL (70-99) Calcium Level 9.1 mg/dL (8.5-10.1) 9.5 mg/dL (8.5-10.1) 9.4 mg/dL (8.5-10.1) Phosphorus Level 3.9 mg/dL (2.6-4.7) Magnesium Level 2.6 mg/dL (1.8-2.4) Laboratory Tests Test 05/29/21 07:10 Sodium Level 144 mmol/L (136-145) Potassium Level 5.3 mmol/L (3.5-5.1) Chloride Level 111 mmol/L (98-107) Carbon Dioxide Level 26 mmol/L (21-32) Anion Gap 7 (6-14) Blood Urea Nitrogen 41 mg/dL (8-26) Creatinine 1.1 mg/dL (0.7-1.3) Estimated GFR (Cockcroft-Gault) 83.8 Glucose Level 150 mg/dL (70-99) Calcium Level 9.4 mg/dL (8.5-10.1) Medications Active Scripts Medications Dose Route/Sig Max Daily Dose Days Date Category Hydrocodone-Acetamin 7.5-325 (Hydrocodone/Acetaminophen) 1 Each Tablet 1 Each PO Q6HRS PRN 05/18/21 Reported [percocet] Unknown Strength Unknown Dose 05/18/21 Reported [tramadol] Unknown Strength Unknown Dose 05/18/21 Reported Melatonin 10 Mg Capsule 1 Cap PO QHS 30 05/18/21 Reported Topiramate 50 Mg Tablet 3 Tab PO HS 30 05/18/21 Reported Zoloft (Sertraline Hcl) 50 Mg Tablet 1 Tab PO DAILY 05/18/21 Reported Amlodipine Besylate 10 Mg Tablet 10 Mg PO DAILY 05/18/21 Reported Allopurinol 100 Mg Tablet 1 Tab PO BID 05/18/21 Reported Tessalon Perle (Benzonatate) 100 Mg Capsule 1 Cap PO DAILY 05/18/21 Reported Proair Hfa Inhaler (Albuterol Sulfate) 8.5 Gm Hfa.aer.ad 2 Puff IH PRN Q4-6HRS PRN 21 05/18/21 Reported Aspirin 81 Mg Tab.chew 81 Mg PO DAILY 05/18/21 Reported Impression . 1. Acute hypoxic respiratory failure secondary to COVID-19 viral pneumonia./Acute lung injury/early ARDS. 2. Abnormal chest x-ray with bilateral patchy interstitial infiltrates consistent with COVID-19 viral pneumonia. 3. No significant tobacco history. 4. Acute kidney injury likely related to volume contraction. The patient has been having diarrhea. 5. Leukocytosis without any fever, likely due to steroids. We will monitor closely and leave him on empiric antibiotics. Plan . RECOMMENDATIONS: 1. Continue present oxygen via nonrebreather mask at 15 L. 2. Continue with remdesivir full course. 3. Continue IV Solu-Medrol for a total of 10-day course. 4. Lovenox for deep venous thrombosis prophylaxis. 5. Empiric antibiotic. 6. Monitor white cell count and follow for any new fever. 7. Discussed advanced directives with the patient and he would like to be on a ventilator in case if his hypoxia worsens. He is a full code. Discussed with RN. STACY EASON MD May 29, 2021 10:23
[2021-05-29 11:00] VITALS: BP 121/77
[2021-05-29] MEDS: cefTRIAXone IV Push 1 GM VIAL. IVP SCH (12:41)
[2021-05-29 15:00] VITALS: BP 147/96
[2021-05-29 19:00] VITALS: BP 143/82
[2021-05-29] MEDS: TOPIRAMATE 100 MG TABLET. PO SCH (21:50)
[2021-05-29 23:00] VITALS: BP 139/85
[2021-05-30 03:00] VITALS: BP 128/81
[2021-05-30] MEDS: methylPREDNISolone SOD SUCC PF 125 MG/2 ML VIAL. IV SCH ×3 (06:20→21:24)
[2021-05-30 07:00] VITALS: BP 146/88
[2021-05-30 08:02] LABS: BASO # 0.1 x10^3/uL (0.0-0.2); BASO % 0 % (0-3); EOS % 0 % (0-3); HEMATOCRIT 42.2 % (39.0-53.0); HEMOGLOBIN 13.7 g/dL (13.0-17.5); LYMPH # 0.5 x10^3/uL (1.0-4.8); LYMPH % 3 % (24-48); MEAN CORPUSCULAR HEMOGLOBIN 28 pg (25-35); MEAN CORPUSCULAR HGB CONC 33 g/dL (31-37); MEAN CORPUSCULAR VOLUME 86 fL (79-100); MONO # 1.1 x10^3/uL (0.0-1.1); MONO % 5 % (0-9); NEUT # 18.1 x10^3/uL (1.8-7.7); NEUT % 92 % (31-73); PLATELET COUNT 201 x10^3/uL (140-400); RED CELL DISTRIBUTION WIDTH 14.9 % (11.5-14.5); WHITE BLOOD COUNT 19.7 x10^3/uL (4.0-11.0)
[2021-05-30 08:18] LABS: ALBUMIN 2.2 g/dL (3.4-5.0); ALBUMIN/GLOBULIN RATIO 0.6 (1.0-1.7); CALCIUM 9.1 mg/dL (8.5-10.1); GFR 93.5; POTASSIUM 4.8 mmol/L (3.5-5.1); TOTAL BILIRUBIN 0.6 mg/dL (0.2-1.0)
--- NOTE | 2021-05-30 08:21 | PDOC ---
[employer] PROGRESS NOTE Date of Service DOS: DATE: 05/30/21 TIME: 08:21 Chief Complaint Chief Complaint Acute hypoxic respiratory failure COVID-19 pneumonia DARIANA due to vasomotor nephropathy, possible undiagnosed CKD Obesity class I Hypernatremia Nephrology consult for acute on chronic kidney disease Continue remdesivir Pulmonology consult Continue Zosyn Continue IV thiamine and vitamin C IV Solu-Medrol Daily Pending ferritin, LDH, CRP, D-dimer labs Titrate O2 supplementation to maintain O2 saturation greater than 92% Lovenox for DVT prophylaxis Protonix while on steroids GI prophylaxis ADA diet Full code Discussed with RN and SW Disposition inpatient management as above Surrogate decision maker is the History of Present Illness History of Present Illness Mr Parson is a 55 year old male w/ PMHx significant for history of CAD status post stenting who present to ER with a history of 2 weeks cough and trouble breathing. Patient was not vaccinated for COVID-19. Patient was diagnosed with COVID-19 on , he was seen at the [facility], was tested positive for COVID-19. Patient came in today because of worsening trouble breathing. His oxygen sat uration was 87% on room air. Patient denies history of diabetic, denies history of smoking denies history of COPD, not on oxygen at home. 05/20: No acute events overnight. Patient now requiring 8 L nasal cannula to saturate 97%. Patient is more short of breath. Remdesivir initiated. No concerns nursing at this time. 05/21: On 6 L nasal cannula saturating well. Still feeling more fatigued and just generalized illness. Some new onset upper abdominal pain, will start Pepcid and as needed GI cocktail. 05/22: He was on 4 L nasal cannula maintaining good saturations. Somewhat improved but overall feels fatigued still. Continue Covid protocol. Pulmonary consulted. 05/23: No OE. Saturating 98% on 8 L nasal cannula. Pulmonology was consulted and recommended to continue current management for Covid. Currently on IV Remdesivir. 05/24: No acute events overnight. Patient seen examined bedside. Patient saturating 98% on 10 L nasal cannula. Still short of breath during speaking. CT abdomen pelvis ordered today to evaluate lesion on the kidney. Patient still does not know what is the cause of his renal failure. No history of hypertension or diabetes. Neurology has been consulted. 8/15: No acute events overnight. Patient saturating 95% on 15 L nonrebreather. Switch IV fluids to D5W at 75 cc/h. 05/26: Afebrile. Vomited after paroxysmal coughing this morning. His mood is a little bit depressed. O2 saturation 96% on 15 L nonrebreather. 05/27: CT abdomen pelvis with no acute abdominal findings. Feel most nauseated today, vomiting after coughing. Feels weak and tired on 15 L. 05/28: Afebrile. No further vomiting. Still very weak requiring 15 L non- rebreather. PICC line placed for IV access 05/29: Afebrile. Still feeling weak. Now on 12 L nasal cannula oxygen with O2 saturations 91 to 94%. PICC functioning well. He is asking me to go home. K 5.3 Afebrile. Still profoundly weak. Asking if he can go home on 12 L of oxygen which is currently requiring with O2 saturations 91%. No chest pain, still very short of breath. And dry nose. Vitals/I&O Vitals/I&O: Vital Signs Date Time Temp Pulse Resp B/P (MAP) Pulse Ox O2 Delivery O2 Flow Rate FiO2 05/30/21 03:00 97.7 77 20 128/81 (97) 93 97.7 05/29/21 20:30 Non-Rebreather 15.0 I & O 05/29/21 05/29/21 05/30/21 15:00 23:00 07:00 Intake Total 1120 ml 120 ml Output Total 600 ml 400 ml Balance -600 ml 1120 ml -280 ml Physical Exam General: Alert, Oriented X3, Cooperative, No acute distress Heart: Regular rate, Normal S1, Normal S2 Abdomen: Normal bowel sounds, No tenderness Extremities: No clubbing Skin: No breakdown Labs Labs: Laboratory Tests Test 05/30/21 07:30 White Blood Count 19.7 x10^3/uL (4.0-11.0) Red Blood Count 4.90 x10^6/uL (4.30-5.70) Hemoglobin 13.7 g/dL (13.0-17.5) Hematocrit 42.2 % (39.0-53.0) Mean Corpuscular Volume 86 fL (79-100) Mean Corpuscular Hemoglobin 28 pg (25-35) Mean Corpuscular Hemoglobin Concent 33 g/dL (31-37) Red Cell Distribution Width 14.9 % (11.5-14.5) Platelet Count 201 x10^3/uL (140-400) Neutrophils (%) (Auto) 92 % (31-73) Lymphocytes (%) (Auto) 3 % (24-48) Monocytes (%) (Auto) 5 % (0-9) Eosinophils (%) (Auto) 0 % (0-3) Basophils (%) (Auto) 0 % (0-3) Neutrophils # (Auto) 18.1 x10^3/uL (1.8-7.7) Lymphocytes # (Auto) 0.5 x10^3/uL (1.0-4.8) Monocytes # (Auto) 1.1 x10^3/uL (0.0-1.1) Eosinophils # (Auto) 0.0 x10^3/uL (0.0-0.7) Basophils # (Auto) 0.1 x10^3/uL (0.0-0.2) Sodium Level 142 mmol/L (136-145) Potassium Level 4.8 mmol/L (3.5-5.1) Chloride Level 109 mmol/L (98-107) Carbon Dioxide Level 24 mmol/L (21-32) Anion Gap 9 (6-14) Blood Urea Nitrogen 38 mg/dL (8-26) Creatinine 1.0 mg/dL (0.7-1.3) Estimated GFR (Cockcroft-Gault) 93.5 BUN/Creatinine Ratio 38 (6-20) Glucose Level 171 mg/dL (70-99) Calcium Level 9.1 mg/dL (8.5-10.1) Total Bilirubin 0.6 mg/dL (0.2-1.0) Aspartate Amino Transf (AST/SGOT) 16 U/L (15-37) Alanine Aminotransferase (ALT/SGPT) 29 U/L (16-63) Alkaline Phosphatase 54 U/L (46-116) Total Protein 6.0 g/dL (6.4-8.2) Albumin 2.2 g/dL (3.4-5.0) Albumin/Globulin Ratio 0.6 (1.0-1.7) Assessment and Plan Assessmemt and Plan Problems Medical Problems: (1) Hypoxia Status: Acute (2) Pneumonia due to COVID-19 virus Status: Acute Comment Review of Relevant I have reviewed the following items fawn (where applicable) has been applied. Justifications for Admission Other Justification COVID-19 pneumonia FENG DE LA TORRE MD May 30, 2021 08:21
[2021-05-30] MEDS: ALLOPURINOL 100 MG TABLET. PO SCH ×2 (09:36→21:23)
[2021-05-30] MEDS: FAMOTIDINE 20 MG TABLET. PO SCH ×2 (09:36→21:23)
[2021-05-30] MEDS: ZINC SULFATE 220 MG CAPSULE. PO SCH (09:36)
[2021-05-30] MEDS: LACTOBACILLUS RHAMNOSUS GG 1 CAPSULE. PO SCH ×2 (09:36→21:23)
[2021-05-30] MEDS: SERTRALINE 50 MG TABLET. PO SCH (09:36)
[2021-05-30] MEDS: ASCORBIC ACID 1,000 MG TABLET PO SCH ×3 (09:36→21:23)
[2021-05-30] MEDS: ASPIRIN CHEWABLE 81 MG TABLET. PO SCH (09:36)
[2021-05-30] MEDS: THIAMINE 100 MG TABLET. PO SCH (09:37)
[2021-05-30] MEDS: ENOXAPARIN 40 MG/0.4 ML SYRINGE. SQ SCH (09:37)
[2021-05-30] MEDS: AZITHROMYCIN 500 MG in IV NORMAL SALINE 250ML 250 ML IV SCH (09:38)
[2021-05-30] MEDS: PANTOPRAZOLE 40 MG TABLET.DR. PO SCH (09:38)
[2021-05-30] MEDS: IV DEXTROSE 5% 1,000 ML IV SCH (09:46)
--- NOTE | 2021-05-30 10:04 | PDOC ---
PULMONARY PROGRESS NOTES DATE: 05/30/21 TIME: 10:03 Subjective Patient was on 15 L nonrebreather mask. Feels weak and tired. Vitals Vital Signs Date Time Temp Pulse Resp B/P (MAP) Pulse Ox O2 Delivery O2 Flow Rate FiO2 05/30/21 09:37 77 146/88 05/30/21 07:00 97.7 22 90 97.7 05/29/21 20:30 Non-Rebreather 15.0 Comments Visual exam done due to COVID-19. No paradoxical breathing. No skin rash no leg edema. General: Alert, No acute distress Labs Laboratory Tests Test 05/29/21 07:10 05/30/21 07:30 Sodium Level 144 mmol/L (136-145) 142 mmol/L (136-145) Potassium Level 5.3 mmol/L (3.5-5.1) 4.8 mmol/L (3.5-5.1) Chloride Level 111 mmol/L (98-107) 109 mmol/L (98-107) Carbon Dioxide Level 26 mmol/L (21-32) 24 mmol/L (21-32) Anion Gap 7 (6-14) 9 (6-14) Blood Urea Nitrogen 41 mg/dL (8-26) 38 mg/dL (8-26) Creatinine 1.1 mg/dL (0.7-1.3) 1.0 mg/dL (0.7-1.3) Estimated GFR (Cockcroft-Gault) 83.8 93.5 Glucose Level 150 mg/dL (70-99) 171 mg/dL (70-99) Calcium Level 9.4 mg/dL (8.5-10.1) 9.1 mg/dL (8.5-10.1) White Blood Count 19.7 x10^3/uL (4.0-11.0) Red Blood Count 4.90 x10^6/uL (4.30-5.70) Hemoglobin 13.7 g/dL (13.0-17.5) Hematocrit 42.2 % (39.0-53.0) Mean Corpuscular Volume 86 fL (79-100) Mean Corpuscular Hemoglobin 28 pg (25-35) Mean Corpuscular Hemoglobin Concent 33 g/dL (31-37) Red Cell Distribution Width 14.9 % (11.5-14.5) Platelet Count 201 x10^3/uL (140-400) Neutrophils (%) (Auto) 92 % (31-73) Lymphocytes (%) (Auto) 3 % (24-48) Monocytes (%) (Auto) 5 % (0-9) Eosinophils (%) (Auto) 0 % (0-3) Basophils (%) (Auto) 0 % (0-3) Neutrophils # (Auto) 18.1 x10^3/uL (1.8-7.7) Lymphocytes # (Auto) 0.5 x10^3/uL (1.0-4.8) Monocytes # (Auto) 1.1 x10^3/uL (0.0-1.1) Eosinophils # (Auto) 0.0 x10^3/uL (0.0-0.7) Basophils # (Auto) 0.1 x10^3/uL (0.0-0.2) BUN/Creatinine Ratio 38 (6-20) Total Bilirubin 0.6 mg/dL (0.2-1.0) Aspartate Amino Transf (AST/SGOT) 16 U/L (15-37) Alanine Aminotransferase (ALT/SGPT) 29 U/L (16-63) Alkaline Phosphatase 54 U/L (46-116) Total Protein 6.0 g/dL (6.4-8.2) Albumin 2.2 g/dL (3.4-5.0) Albumin/Globulin Ratio 0.6 (1.0-1.7) Laboratory Tests Test 05/30/21 07:30 White Blood Count 19.7 x10^3/uL (4.0-11.0) Red Blood Count 4.90 x10^6/uL (4.30-5.70) Hemoglobin 13.7 g/dL (13.0-17.5) Hematocrit 42.2 % (39.0-53.0) Mean Corpuscular Volume 86 fL (79-100) Mean Corpuscular Hemoglobin 28 pg (25-35) Mean Corpuscular Hemoglobin Concent 33 g/dL (31-37) Red Cell Distribution Width 14.9 % (11.5-14.5) Platelet Count 201 x10^3/uL (140-400) Neutrophils (%) (Auto) 92 % (31-73) Lymphocytes (%) (Auto) 3 % (24-48) Monocytes (%) (Auto) 5 % (0-9) Eosinophils (%) (Auto) 0 % (0-3) Basophils (%) (Auto) 0 % (0-3) Neutrophils # (Auto) 18.1 x10^3/uL (1.8-7.7) Lymphocytes # (Auto) 0.5 x10^3/uL (1.0-4.8) Monocytes # (Auto) 1.1 x10^3/uL (0.0-1.1) Eosinophils # (Auto) 0.0 x10^3/uL (0.0-0.7) Basophils # (Auto) 0.1 x10^3/uL (0.0-0.2) Sodium Level 142 mmol/L (136-145) Potassium Level 4.8 mmol/L (3.5-5.1) Chloride Level 109 mmol/L (98-107) Carbon Dioxide Level 24 mmol/L (21-32) Anion Gap 9 (6-14) Blood Urea Nitrogen 38 mg/dL (8-26) Creatinine 1.0 mg/dL (0.7-1.3) Estimated GFR (Cockcroft-Gault) 93.5 BUN/Creatinine Ratio 38 (6-20) Glucose Level 171 mg/dL (70-99) Calcium Level 9.1 mg/dL (8.5-10.1) Total Bilirubin 0.6 mg/dL (0.2-1.0) Aspartate Amino Transf (AST/SGOT) 16 U/L (15-37) Alanine Aminotransferase (ALT/SGPT) 29 U/L (16-63) Alkaline Phosphatase 54 U/L (46-116) Total Protein 6.0 g/dL (6.4-8.2) Albumin 2.2 g/dL (3.4-5.0) Albumin/Globulin Ratio 0.6 (1.0-1.7) Medications Active Scripts Medications Dose Route/Sig Max Daily Dose Days Date Category Hydrocodone-Acetamin 7.5-325 (Hydrocodone/Acetaminophen) 1 Each Tablet 1 Each PO Q6HRS PRN 05/18/21 Reported [percocet] Unknown Strength Unknown Dose 05/18/21 Reported [tramadol] Unknown Strength Unknown Dose 05/18/21 Reported Melatonin 10 Mg Capsule 1 Cap PO QHS 30 05/18/21 Reported Topiramate 50 Mg Tablet 3 Tab PO HS 30 05/18/21 Reported Zoloft (Sertraline Hcl) 50 Mg Tablet 1 Tab PO DAILY 05/18/21 Reported Amlodipine Besylate 10 Mg Tablet 10 Mg PO DAILY 05/18/21 Reported Allopurinol 100 Mg Tablet 1 Tab PO BID 05/18/21 Reported Tessalon Perle (Benzonatate) 100 Mg Capsule 1 Cap PO DAILY 05/18/21 Reported Proair Hfa Inhaler (Albuterol Sulfate) 8.5 Gm Hfa.aer.ad 2 Puff IH PRN Q4-6HRS PRN 21 05/18/21 Reported Aspirin 81 Mg Tab.chew 81 Mg PO DAILY 05/18/21 Reported Impression . 1. Acute hypoxic respiratory failure secondary to COVID-19 viral pneumonia./Acute lung injury/early ARDS. 2. Abnormal chest x-ray with bilateral patchy interstitial infiltrates consistent with COVID-19 viral pneumonia. 3. No significant tobacco history. 4. Acute kidney injury likely related to volume contraction. The patient has been having diarrhea. 5. Leukocytosis without any fever, likely due to steroids. We will monitor closely and leave him on empiric antibiotics. Plan . RECOMMENDATIONS: 1. Continue present oxygen via nonrebreather mask at 15 L. 2. Continue with remdesivir full course. 3. Continue IV Solu-Medrol for a total of 10-day course. Slow taper. 4. Lovenox for deep venous thrombosis prophylaxis. 5. Empiric antibiotic. 6. Monitor white cell count and follow for any new fever. 7. Discussed advanced directives with the patient and he would like to be on a ventilator in case if his hypoxia worsens. He is a full code. Discussed with FLOR. STACY EASON MD May 30, 2021 10:04
[2021-05-30 10:33] LABS: % LYMPHS 7 % (24-48); % MONOS 2 % (0-10); % SEGS 91 % (35-66); PLT ESTIMATE ADEQUATE (ADEQUATE)
[2021-05-30 11:00] VITALS: BP 141/88
--- NOTE | 2021-05-30 11:03 | PDOC ---
Renal-Progress Notes Subjective Notes Notes STILL SOB History of Present Illness Hx of present illness STILL NEEDING SIGNIFICANT SUPPLEMENTAL O2 Vitals Vitals Vital Signs Date Time Temp Pulse Resp B/P (MAP) Pulse Ox O2 Delivery O2 Flow Rate FiO2 05/30/21 09:37 77 146/88 05/30/21 07:00 97.7 22 90 97.7 05/29/21 20:30 Non-Rebreather 15.0 Weight Weight [ ] I.O. Intake and Output Intake and Output 05/30/21 06:59 Intake Total 1240 ml Output Total 1000 ml Balance 240 ml Intake Oral 240 ml IV Total 1000 ml Output Urine Total 1000 ml Labs Labs Laboratory Tests Test 05/30/21 07:30 White Blood Count 19.7 x10^3/uL (4.0-11.0) Red Blood Count 4.90 x10^6/uL (4.30-5.70) Hemoglobin 13.7 g/dL (13.0-17.5) Hematocrit 42.2 % (39.0-53.0) Mean Corpuscular Volume 86 fL (79-100) Mean Corpuscular Hemoglobin 28 pg (25-35) Mean Corpuscular Hemoglobin Concent 33 g/dL (31-37) Red Cell Distribution Width 14.9 % (11.5-14.5) Platelet Count 201 x10^3/uL (140-400) Neutrophils (%) (Auto) 92 % (31-73) Lymphocytes (%) (Auto) 3 % (24-48) Monocytes (%) (Auto) 5 % (0-9) Eosinophils (%) (Auto) 0 % (0-3) Basophils (%) (Auto) 0 % (0-3) Neutrophils # (Auto) 18.1 x10^3/uL (1.8-7.7) Lymphocytes # (Auto) 0.5 x10^3/uL (1.0-4.8) Monocytes # (Auto) 1.1 x10^3/uL (0.0-1.1) Eosinophils # (Auto) 0.0 x10^3/uL (0.0-0.7) Basophils # (Auto) 0.1 x10^3/uL (0.0-0.2) Segmented Neutrophils % 91 % (35-66) Lymphocytes % 7 % (24-48) Monocytes % 2 % (0-10) Platelet Estimate Adequate (ADEQUATE) Sodium Level 142 mmol/L (136-145) Potassium Level 4.8 mmol/L (3.5-5.1) Chloride Level 109 mmol/L (98-107) Carbon Dioxide Level 24 mmol/L (21-32) Anion Gap 9 (6-14) Blood Urea Nitrogen 38 mg/dL (8-26) Creatinine 1.0 mg/dL (0.7-1.3) Estimated GFR (Cockcroft-Gault) 93.5 BUN/Creatinine Ratio 38 (6-20) Glucose Level 171 mg/dL (70-99) Calcium Level 9.1 mg/dL (8.5-10.1) Total Bilirubin 0.6 mg/dL (0.2-1.0) Aspartate Amino Transf (AST/SGOT) 16 U/L (15-37) Alanine Aminotransferase (ALT/SGPT) 29 U/L (16-63) Alkaline Phosphatase 54 U/L (46-116) Total Protein 6.0 g/dL (6.4-8.2) Albumin 2.2 g/dL (3.4-5.0) Albumin/Globulin Ratio 0.6 (1.0-1.7) Micro Micro Microbiology 05/18/21 Blood Culture - Final, Complete NO GROWTH AFTER 5 DAYS Review of Systems Constitutional: yes: weakness, alert, oriented Ears/Nose/Throat: Yes: no symptom reported Eyes: Yes: no symptom reported Pulmonary: Yes dyspnea Cardiovascular: Yes no symptom reported Gastrointestional: Yes: no symptom reported Genitourinary: Yes: no symptom reported Musculoskeletal: Yes: no symptom reported Skin: Yes no symptom reported Psychiatric/Neurological: Yes: no symptom reported Physical Exam General Appearance: no apparent distress Skin: warm Respiratory: decreased breath sounds Heart: S1S2 Abdomen: soft, bowel sounds present Genitourinary: bladder flat Extremities: pulses present Neurology: alert Assessment Assessment Assessment/Plan RENAL FAILURE-DARIANA - RESOLVED HYPERNATREMIA-RESOLVED MILD HYPERKALEMIA MILD PROTEINURIA MILD HEMATURIA HYPOXIA ACUTE RESP FAILURE COVID 19 PNEUMONIA LEUCOCYTOSIS OBESITY ? LEFT RENAL MASS-PROB BENIGN PLAN CONT TO TX COVID 19 SUPPLEMENTAL O2 RENAL SONOGRAM F/U IN SIX MONTHS HYDRATION NEEDED ON ANTIBIOTICS STOP HYDRATION ENC PO WILL FOLLOW GERTRUDE PARKER MD May 30, 2021 11:03
--- NOTE | 2021-05-30 11:27 | NUR ---
SW following. Discussed with RN, pt from home, 15L NRB. Pt wanting to go home. COVID-19 positive. SW will continue to follow.
[2021-05-30] MEDS: cefTRIAXone IV Push 1 GM VIAL. IVP SCH (11:53)
[2021-05-30] MEDS ORDERED: SODIUM CHL/ALOE VERA NASAL GEL 14.1GM TUBE. NS PRN (12:00)
[2021-05-30 15:00] VITALS: BP 140/96
[2021-05-30 19:00] VITALS: BP 140/82
[2021-05-30] MEDS: TOPIRAMATE 100 MG TABLET. PO SCH (21:23)
[2021-05-30 23:00] VITALS: BP 149/90
[2021-05-31 03:06] VITALS: BP 146/88
[2021-05-31] MEDS: methylPREDNISolone SOD SUCC PF 125 MG/2 ML VIAL. IV SCH ×3 (06:30→20:53)
[2021-05-31 07:00] VITALS: BP 128/87
--- NOTE | 2021-05-31 07:49 | PDOC ---
PULMONARY PROGRESS NOTES DATE: 05/31/21 TIME: 07:48 Subjective Patient was on 13 L nc sob slightly better is tired Vitals Vital Signs Date Time Temp Pulse Resp B/P (MAP) Pulse Ox O2 Delivery O2 Flow Rate FiO2 05/31/21 03:06 97.2 81 18 146/88 (107) 95 Nasal Cannula 97.2 05/30/21 20:00 13.0 Comments Visual exam done due to COVID-19. no distress nca t rrr no accessory muscle use No skin rash no leg edema. General: Alert, No acute distress Labs Laboratory Tests Test 05/30/21 07:30 White Blood Count 19.7 x10^3/uL (4.0-11.0) Red Blood Count 4.90 x10^6/uL (4.30-5.70) Hemoglobin 13.7 g/dL (13.0-17.5) Hematocrit 42.2 % (39.0-53.0) Mean Corpuscular Volume 86 fL (79-100) Mean Corpuscular Hemoglobin 28 pg (25-35) Mean Corpuscular Hemoglobin Concent 33 g/dL (31-37) Red Cell Distribution Width 14.9 % (11.5-14.5) Platelet Count 201 x10^3/uL (140-400) Neutrophils (%) (Auto) 92 % (31-73) Lymphocytes (%) (Auto) 3 % (24-48) Monocytes (%) (Auto) 5 % (0-9) Eosinophils (%) (Auto) 0 % (0-3) Basophils (%) (Auto) 0 % (0-3) Neutrophils # (Auto) 18.1 x10^3/uL (1.8-7.7) Lymphocytes # (Auto) 0.5 x10^3/uL (1.0-4.8) Monocytes # (Auto) 1.1 x10^3/uL (0.0-1.1) Eosinophils # (Auto) 0.0 x10^3/uL (0.0-0.7) Basophils # (Auto) 0.1 x10^3/uL (0.0-0.2) Segmented Neutrophils % 91 % (35-66) Lymphocytes % 7 % (24-48) Monocytes % 2 % (0-10) Platelet Estimate Adequate (ADEQUATE) Sodium Level 142 mmol/L (136-145) Potassium Level 4.8 mmol/L (3.5-5.1) Chloride Level 109 mmol/L (98-107) Carbon Dioxide Level 24 mmol/L (21-32) Anion Gap 9 (6-14) Blood Urea Nitrogen 38 mg/dL (8-26) Creatinine 1.0 mg/dL (0.7-1.3) Estimated GFR (Cockcroft-Gault) 93.5 BUN/Creatinine Ratio 38 (6-20) Glucose Level 171 mg/dL (70-99) Calcium Level 9.1 mg/dL (8.5-10.1) Total Bilirubin 0.6 mg/dL (0.2-1.0) Aspartate Amino Transf (AST/SGOT) 16 U/L (15-37) Alanine Aminotransferase (ALT/SGPT) 29 U/L (16-63) Alkaline Phosphatase 54 U/L (46-116) Total Protein 6.0 g/dL (6.4-8.2) Albumin 2.2 g/dL (3.4-5.0) Albumin/Globulin Ratio 0.6 (1.0-1.7) Medications Active Scripts Medications Dose Route/Sig Max Daily Dose Days Date Category Hydrocodone-Acetamin 7.5-325 (Hydrocodone/Acetaminophen) 1 Each Tablet 1 Each PO Q6HRS PRN 05/18/21 Reported [percocet] Unknown Strength Unknown Dose 05/18/21 Reported [tramadol] Unknown Strength Unknown Dose 05/18/21 Reported Melatonin 10 Mg Capsule 1 Cap PO QHS 30 05/18/21 Reported Topiramate 50 Mg Tablet 3 Tab PO HS 30 05/18/21 Reported Zoloft (Sertraline Hcl) 50 Mg Tablet 1 Tab PO DAILY 05/18/21 Reported Amlodipine Besylate 10 Mg Tablet 10 Mg PO DAILY 05/18/21 Reported Allopurinol 100 Mg Tablet 1 Tab PO BID 05/18/21 Reported Tessalon Perle (Benzonatate) 100 Mg Capsule 1 Cap PO DAILY 05/18/21 Reported Proair Hfa Inhaler (Albuterol Sulfate) 8.5 Gm Hfa.aer.ad 2 Puff IH PRN Q4-6HRS PRN 21 05/18/21 Reported Aspirin 81 Mg Tab.chew 81 Mg PO DAILY 05/18/21 Reported Impression . 1. Acute hypoxic respiratory failure secondary to COVID-19 viral pneumonia./Acute lung injury/early ARDS. 2. Abnormal chest x-ray with bilateral patchy interstitial infiltrates consistent with COVID-19 viral pneumonia. 3. No significant tobacco history. 4. Acute kidney injury likely related to volume contraction. The patient has been having diarrhea. 5. Leukocytosis without any fever, likely due to steroids. We will monitor closely and leave him on empiric antibiotics. Plan . RECOMMENDATIONS: 1. Continue 02 titrate fio2 to keep sat 90% start IS to use multiple times an hr 2. Continue with remdesivir full course. 3. Continue IV Solu-Medrol for a total of 10-day course. Slow taper. 4. Lovenox for deep venous thrombosis prophylaxis. 5. Empiric antibiotic. 6. Monitor white cell count and follow for any new fever. 7. He is a full code. Discussed with RN. KEERTHI BENNETT MD May 31, 2021 07:49
[2021-05-31] MEDS: LACTOBACILLUS RHAMNOSUS GG 1 CAPSULE. PO SCH ×2 (09:34→20:52)
[2021-05-31] MEDS: THIAMINE 100 MG TABLET. PO SCH (09:34)
[2021-05-31] MEDS: ZINC SULFATE 220 MG CAPSULE. PO SCH (09:34)
[2021-05-31] MEDS: ASCORBIC ACID 1,000 MG TABLET PO SCH ×3 (09:34→20:52)
[2021-05-31] MEDS: ALLOPURINOL 100 MG TABLET. PO SCH ×2 (09:35→21:00)
[2021-05-31] MEDS: ASPIRIN CHEWABLE 81 MG TABLET. PO SCH (09:36)
[2021-05-31] MEDS: FAMOTIDINE 20 MG TABLET. PO SCH ×2 (09:36→20:52)
[2021-05-31] MEDS: SERTRALINE 50 MG TABLET. PO SCH (09:36)
[2021-05-31] MEDS: PANTOPRAZOLE 40 MG TABLET.DR. PO SCH (09:36)
[2021-05-31] MEDS: ENOXAPARIN 40 MG/0.4 ML SYRINGE. SQ SCH (09:43)
[2021-05-31] MEDS: AZITHROMYCIN 500 MG in IV NORMAL SALINE 250ML 250 ML IV SCH (09:45)
[2021-05-31 11:00] VITALS: BP 146/85
[2021-05-31] MEDS: cefTRIAXone IV Push 1 GM VIAL. IVP SCH (12:29)
[2021-05-31 15:00] VITALS: BP 157/81
--- NOTE | 2021-05-31 15:50 | PDOC ---
[facility] PROGRESS NOTE Date of Service DOS: DATE: 05/31/21 TIME: 15:47 Chief Complaint Chief Complaint Acute hypoxic respiratory failure COVID-19 pneumonia DARIANA due to vasomotor nephropathy, possible undiagnosed CKD Obesity class I Hypernatremia Nephrology consult for acute on chronic kidney disease Continue remdesivir Pulmonology consult Continue Zosyn Continue IV thiamine and vitamin C IV Solu-Medrol Daily Pending ferritin, LDH, CRP, D-dimer labs Titrate O2 supplementation to maintain O2 saturation greater than 92% Lovenox for DVT prophylaxis Protonix while on steroids GI prophylaxis ADA diet Full code Discussed with RN and SW Disposition inpatient management as above Surrogate decision maker is the History of Present Illness History of Present Illness Mr Parson is a 55 year old male w/ PMHx significant for history of CAD status post stenting who present to ER with a history of 2 weeks cough and trouble breathing. Patient was not vaccinated for COVID-19. Patient was diagnosed with COVID-19 on , he was seen at the [facility], was tested positive for COVID-19. Patient came in today because of worsening trouble breathing. His oxygen sat uration was 87% on room air. Patient denies history of diabetic, denies history of smoking denies history of COPD, not on oxygen at home. 05/20: No acute events overnight. Patient now requiring 8 L nasal cannula to saturate 97%. Patient is more short of breath. Remdesivir initiated. No concerns nursing at this time. 05/21: On 6 L nasal cannula saturating well. Still feeling more fatigued and just generalized illness. Some new onset upper abdominal pain, will start Pepcid and as needed GI cocktail. 05/22: He was on 4 L nasal cannula maintaining good saturations. Somewhat improved but overall feels fatigued still. Continue Covid protocol. Pulmonary consulted. 05/23: No OE. Saturating 98% on 8 L nasal cannula. Pulmonology was consulted and recommended to continue current management for Covid. Currently on IV Remdesivir. 05/24: Patient saturating 98% on 10 L nasal cannula. Still short of breath during speaking. CT abdomen pelvis ordered today to evaluate lesion on the kidney. Patient still does not know what is the cause of his renal failure. No history of hypertension or diabetes. Nephrology has been consulted. 05/25: No acute events overnight. Patient saturating 95% on 15 L nonrebreather. Switch IV fluids to D5W at 75 cc/h. 05/26: Afebrile. Vomited after paroxysmal coughing this morning. His mood is a little bit depressed. O2 saturation 96% on 15 L nonrebreather. 05/27: CT abdomen pelvis with no acute abdominal findings. Feel most nauseated today, vomiting after coughing. Feels weak and tired on 15 L. 05/28: Afebrile. No further vomiting. Still very weak requiring 15 L non- rebreather. PICC line placed for IV access 05/29: Afebrile. Still feeling weak. Now on 12 L nasal cannula oxygen with O2 saturations 91 to 94%. PICC functioning well. He is asking me to go home. K 5.3 05/30: Afebrile. Still profoundly weak. Asking if he can go home on 12 L of oxygen which is currently requiring with O2 saturations 91%. No chest pain, still very short of breath. And dry nose. Afebrile. Pretty weak but his appetite is improving. O2 saturations 92% on 8 L today. No chest pain. He is eating [employer] brought in by his family. Vitals/I&O Vitals/I&O: Vital Signs Date Time Temp Pulse Resp B/P (MAP) Pulse Ox O2 Delivery O2 Flow Rate FiO2 05/31/21 15:00 97.8 89 24 157/81 (106) 94 97.8 05/31/21 11:00 Nasal Cannula 05/31/21 08:15 13.0 I & O 05/30/21 05/30/21 05/31/21 15:00 23:00 07:00 Intake Total 1375 ml Output Total 1000 ml Balance 1375 ml -1000 ml Physical Exam General: Alert, Oriented X3, Cooperative, No acute distress Heart: Regular rate, Normal S1, Normal S2 Abdomen: Normal bowel sounds, No tenderness Extremities: No clubbing Skin: No breakdown Assessment and Plan Assessmemt and Plan Problems Medical Problems: (1) Hypoxia Status: Acute (2) Pneumonia due to COVID-19 virus Status: Acute Comment Review of Relevant I have reviewed the following items fawn (where applicable) has been applied. Justifications for Admission Other Justification COVID-19 pneumonia FENG DE LA TORRE MD May 31, 2021 15:50
[2021-05-31 19:00] VITALS: BP 140/90
[2021-05-31] MEDS: TOPIRAMATE 100 MG TABLET. PO SCH (20:52)
[2021-05-31 23:00] VITALS: BP 160/90
[2021-06-01 03:05] VITALS: BP 143/89
[2021-06-01] MEDS: methylPREDNISolone SOD SUCC PF 125 MG/2 ML VIAL. IV SCH (05:47)
[2021-06-01 06:13] LABS: BASO % 0 % (0-3); EOS % 0 % (0-3); HEMATOCRIT 37.8 % (39.0-53.0); HEMOGLOBIN 12.4 g/dL (13.0-17.5); LYMPH # 0.4 x10^3/uL (1.0-4.8); LYMPH % 2 % (24-48); MEAN CORPUSCULAR HEMOGLOBIN 28 pg (25-35); MEAN CORPUSCULAR HGB CONC 33 g/dL (31-37); MEAN CORPUSCULAR VOLUME 86 fL (79-100); MONO # 1.3 x10^3/uL (0.0-1.1); MONO % 7 % (0-9); NEUT # 17.3 x10^3/uL (1.8-7.7); NEUT % 91 % (31-73); PLATELET COUNT 149 x10^3/uL (140-400); RED BLOOD COUNT 4.41 x10^6/uL (4.30-5.70); RED CELL DISTRIBUTION WIDTH 14.7 % (11.5-14.5); WHITE BLOOD COUNT 19.1 x10^3/uL (4.0-11.0)
[2021-06-01 06:27] LABS: ALBUMIN 2.1 g/dL (3.4-5.0); ALBUMIN/GLOBULIN RATIO 0.6 (1.0-1.7); CALCIUM 8.8 mg/dL (8.5-10.1); CREATININE 1.1 mg/dL (0.7-1.3); GFR 83.8; TOTAL BILIRUBIN 0.6 mg/dL (0.2-1.0); TOTAL PROTEIN 5.5 g/dL (6.4-8.2)
[2021-06-01 07:00] VITALS: BP 145/86
--- NOTE | 2021-06-01 07:07 | PDOC ---
PULMONARY PROGRESS NOTES DATE: 06/01/21 TIME: 07:06 Subjective Patient was on 10 L nc sob better feeling better Vitals Vital Signs Date Time Temp Pulse Resp B/P (MAP) Pulse Ox O2 Delivery O2 Flow Rate FiO2 06/01/21 03:05 98.1 68 18 143/89 (107) 97 Nasal Cannula 98.1 05/31/21 20:00 10.0 Comments Visual exam done due to COVID-19. no distress nca t rrr no accessory muscle use No skin rash no leg edema. General: Alert, No acute distress Labs Laboratory Tests Test 05/30/21 07:30 06/01/21 06:00 White Blood Count 19.7 x10^3/uL (4.0-11.0) 19.1 x10^3/uL (4.0-11.0) Red Blood Count 4.90 x10^6/uL (4.30-5.70) 4.41 x10^6/uL (4.30-5.70) Hemoglobin 13.7 g/dL (13.0-17.5) 12.4 g/dL (13.0-17.5) Hematocrit 42.2 % (39.0-53.0) 37.8 % (39.0-53.0) Mean Corpuscular Volume 86 fL (79-100) 86 fL (79-100) Mean Corpuscular Hemoglobin 28 pg (25-35) 28 pg (25-35) Mean Corpuscular Hemoglobin Concent 33 g/dL (31-37) 33 g/dL (31-37) Red Cell Distribution Width 14.9 % (11.5-14.5) 14.7 % (11.5-14.5) Platelet Count 201 x10^3/uL (140-400) 149 x10^3/uL (140-400) Neutrophils (%) (Auto) 92 % (31-73) 91 % (31-73) Lymphocytes (%) (Auto) 3 % (24-48) 2 % (24-48) Monocytes (%) (Auto) 5 % (0-9) 7 % (0-9) Eosinophils (%) (Auto) 0 % (0-3) 0 % (0-3) Basophils (%) (Auto) 0 % (0-3) 0 % (0-3) Neutrophils # (Auto) 18.1 x10^3/uL (1.8-7.7) 17.3 x10^3/uL (1.8-7.7) Lymphocytes # (Auto) 0.5 x10^3/uL (1.0-4.8) 0.4 x10^3/uL (1.0-4.8) Monocytes # (Auto) 1.1 x10^3/uL (0.0-1.1) 1.3 x10^3/uL (0.0-1.1) Eosinophils # (Auto) 0.0 x10^3/uL (0.0-0.7) 0.0 x10^3/uL (0.0-0.7) Basophils # (Auto) 0.1 x10^3/uL (0.0-0.2) 0.0 x10^3/uL (0.0-0.2) Segmented Neutrophils % 91 % (35-66) Lymphocytes % 7 % (24-48) Monocytes % 2 % (0-10) Platelet Estimate Adequate (ADEQUATE) Sodium Level 142 mmol/L (136-145) 142 mmol/L (136-145) Potassium Level 4.8 mmol/L (3.5-5.1) 5.0 mmol/L (3.5-5.1) Chloride Level 109 mmol/L (98-107) 109 mmol/L (98-107) Carbon Dioxide Level 24 mmol/L (21-32) 28 mmol/L (21-32) Anion Gap 9 (6-14) 5 (6-14) Blood Urea Nitrogen 38 mg/dL (8-26) 33 mg/dL (8-26) Creatinine 1.0 mg/dL (0.7-1.3) 1.1 mg/dL (0.7-1.3) Estimated GFR (Cockcroft-Gault) 93.5 83.8 BUN/Creatinine Ratio 38 (6-20) 30 (6-20) Glucose Level 171 mg/dL (70-99) 134 mg/dL (70-99) Calcium Level 9.1 mg/dL (8.5-10.1) 8.8 mg/dL (8.5-10.1) Total Bilirubin 0.6 mg/dL (0.2-1.0) 0.6 mg/dL (0.2-1.0) Aspartate Amino Transf (AST/SGOT) 16 U/L (15-37) 14 U/L (15-37) Alanine Aminotransferase (ALT/SGPT) 29 U/L (16-63) 24 U/L (16-63) Alkaline Phosphatase 54 U/L (46-116) 56 U/L (46-116) Total Protein 6.0 g/dL (6.4-8.2) 5.5 g/dL (6.4-8.2) Albumin 2.2 g/dL (3.4-5.0) 2.1 g/dL (3.4-5.0) Albumin/Globulin Ratio 0.6 (1.0-1.7) 0.6 (1.0-1.7) Laboratory Tests Test 06/01/21 06:00 White Blood Count 19.1 x10^3/uL (4.0-11.0) Red Blood Count 4.41 x10^6/uL (4.30-5.70) Hemoglobin 12.4 g/dL (13.0-17.5) Hematocrit 37.8 % (39.0-53.0) Mean Corpuscular Volume 86 fL (79-100) Mean Corpuscular Hemoglobin 28 pg (25-35) Mean Corpuscular Hemoglobin Concent 33 g/dL (31-37) Red Cell Distribution Width 14.7 % (11.5-14.5) Platelet Count 149 x10^3/uL (140-400) Neutrophils (%) (Auto) 91 % (31-73) Lymphocytes (%) (Auto) 2 % (24-48) Monocytes (%) (Auto) 7 % (0-9) Eosinophils (%) (Auto) 0 % (0-3) Basophils (%) (Auto) 0 % (0-3) Neutrophils # (Auto) 17.3 x10^3/uL (1.8-7.7) Lymphocytes # (Auto) 0.4 x10^3/uL (1.0-4.8) Monocytes # (Auto) 1.3 x10^3/uL (0.0-1.1) Eosinophils # (Auto) 0.0 x10^3/uL (0.0-0.7) Basophils # (Auto) 0.0 x10^3/uL (0.0-0.2) Sodium Level 142 mmol/L (136-145) Potassium Level 5.0 mmol/L (3.5-5.1) Chloride Level 109 mmol/L (98-107) Carbon Dioxide Level 28 mmol/L (21-32) Anion Gap 5 (6-14) Blood Urea Nitrogen 33 mg/dL (8-26) Creatinine 1.1 mg/dL (0.7-1.3) Estimated GFR (Cockcroft-Gault) 83.8 BUN/Creatinine Ratio 30 (6-20) Glucose Level 134 mg/dL (70-99) Calcium Level 8.8 mg/dL (8.5-10.1) Total Bilirubin 0.6 mg/dL (0.2-1.0) Aspartate Amino Transf (AST/SGOT) 14 U/L (15-37) Alanine Aminotransferase (ALT/SGPT) 24 U/L (16-63) Alkaline Phosphatase 56 U/L (46-116) Total Protein 5.5 g/dL (6.4-8.2) Albumin 2.1 g/dL (3.4-5.0) Albumin/Globulin Ratio 0.6 (1.0-1.7) Medications Active Scripts Medications Dose Route/Sig Max Daily Dose Days Date Category Hydrocodone-Acetamin 7.5-325 (Hydrocodone/Acetaminophen) 1 Each Tablet 1 Each PO Q6HRS PRN 05/18/21 Reported [percocet] Unknown Strength Unknown Dose 05/18/21 Reported [tramadol] Unknown Strength Unknown Dose 05/18/21 Reported Melatonin 10 Mg Capsule 1 Cap PO QHS 30 05/18/21 Reported Topiramate 50 Mg Tablet 3 Tab PO HS 30 05/18/21 Reported Zoloft (Sertraline Hcl) 50 Mg Tablet 1 Tab PO DAILY 05/18/21 Reported Amlodipine Besylate 10 Mg Tablet 10 Mg PO DAILY 05/18/21 Reported Allopurinol 100 Mg Tablet 1 Tab PO BID 05/18/21 Reported Tessalon Perle (Benzonatate) 100 Mg Capsule 1 Cap PO DAILY 05/18/21 Reported Proair Hfa Inhaler (Albuterol Sulfate) 8.5 Gm Hfa.aer.ad 2 Puff IH PRN Q4-6HRS PRN 21 05/18/21 Reported Aspirin 81 Mg Tab.chew 81 Mg PO DAILY 05/18/21 Reported Impression . 1. Acute hypoxic respiratory failure secondary to COVID-19 viral pneum onia./Acute lung injury/early ARDS. 2. Abnormal chest x-ray with bilateral patchy interstitial infiltrates consistent with COVID-19 viral pneumonia. 3. No significant tobacco history. 4. Acute kidney injury likely related to volume contraction. The patient has been having diarrhea. 5. Leukocytosis without any fever, likely due to steroids. We will monitor closely and leave him on empiric antibiotics. Plan . RECOMMENDATIONS: 1. Continue 02 titrate fio2 to keep sat 90% IS to use multiple times an hr 2. Continue with remdesivir full course. 3. change Solu-Medrol to 40 q 8hrs for a total of 10-day course. Slow taper. 4. Lovenox for deep venous thrombosis prophylaxis. 5. Empiric antibiotic. 6. Monitor white cell count and follow for any new fever. 7. He is a full code. Discussed with RN. KEERTHI BENNETT MD Jun 01, 2021 07:07
--- NOTE | 2021-06-01 08:00 | PDOC ---
[facility] PROGRESS NOTE Date of Service DOS: DATE: 06/01/21 TIME: 08:00 Chief Complaint Chief Complaint Acute hypoxic respiratory failure COVID-19 pneumonia DARIANA due to vasomotor nephropathy, possible undiagnosed CKD Obesity class I Hypernatremia Nephrology consult for acute on chronic kidney disease Continue remdesivir Pulmonology consult Continue Zosyn Continue IV thiamine and vitamin C IV Solu-Medrol Daily Pending ferritin, LDH, CRP, D-dimer labs Titrate O2 supplementation to maintain O2 saturation greater than 92% Lovenox for DVT prophylaxis Protonix while on steroids GI prophylaxis ADA diet Full code Discussed with RN and SW Disposition inpatient management as above Surrogate decision maker is the History of Present Illness History of Present Illness Mr Parson is a 55 year old male w/ PMHx significant for history of CAD status post stenting who present to ER with a history of 2 weeks cough and trouble breathing. Patient was not vaccinated for COVID-19. Patient was diagnosed with COVID-19 on , he was seen at the [place], was tested positive for COVID-19. Patient came in today because of worsening trouble breathing. His oxygen sat uration was 87% on room air. Patient denies history of diabetic, denies history of smoking denies history of COPD, not on oxygen at home. 05/20: No acute events overnight. Patient now requiring 8 L nasal cannula to saturate 97%. Patient is more short of breath. Remdesivir initiated. No concerns nursing at this time. 05/21: On 6 L nasal cannula saturating well. Still feeling more fatigued and just generalized illness. Some new onset upper abdominal pain, will start Pepcid and as needed GI cocktail. 05/22: He was on 4 L nasal cannula maintaining good saturations. Somewhat improved but overall feels fatigued still. Continue Covid protocol. Pulmonary consulted. 05/23: No OE. Saturating 98% on 8 L nasal cannula. Pulmonology was consulted and recommended to continue current management for Covid. Currently on IV Remdesivir. 05/24: Patient saturating 98% on 10 L nasal cannula. Still short of breath during speaking. CT abdomen pelvis ordered today to evaluate lesion on the kidney. Patient still does not know what is the cause of his renal failure. No history of hypertension or diabetes. Nephrology has been consulted. 05/25: No acute events overnight. Patient saturating 95% on 15 L nonrebreather. Switch IV fluids to D5W at 75 cc/h. 05/26: Afebrile. Vomited after paroxysmal coughing this morning. His mood is a little bit depressed. O2 saturation 96% on 15 L nonrebreather. 05/27: CT abdomen pelvis with no acute abdominal findings. Feel most nauseated today, vomiting after coughing. Feels weak and tired on 15 L. 05/28: Afebrile. No further vomiting. Still very weak requiring 15 L non- rebreather. PICC line placed for IV access 05/29: Afebrile. Still feeling weak. Now on 12 L nasal cannula oxygen with O2 saturations 91 to 94%. PICC functioning well. He is asking me to go home. K 5.3 05/30: Afebrile. Still profoundly weak. Asking if he can go home on 12 L of oxygen which is currently requiring with O2 saturations 91%. No chest pain, still very short of breath. And dry nose. 05/31: Afebrile. Pretty weak but his appetite is improving. O2 saturations 92% on 8 L today. No chest pain. He is eating Chick-al[employer]-A brought in by his family. 06/01: Afebrile. Little stronger. O2 saturations 96% on 8 L nasal cannula today. Denies chest pain shortness of breath is improved abdomen cough is minimal. WBC 19. He has been on antibiotics over 14 days will try off antibiotics as he is making significant clinical improvements. Vitals/I&O Vitals/I&O: Vital Signs Date Time Temp Pulse Resp B/P (MAP) Pulse Ox O2 Delivery O2 Flow Rate FiO2 06/01/21 07:00 98.2 66 20 145/86 (105) 96 Nasal Cannula 8.0 98.2 I & O 05/31/21 05/31/21 06/01/21 15:00 23:00 07:00 Intake Total 490 ml Output Total 200 ml 400 ml 300 ml Balance 290 ml -400 ml -300 ml Physical Exam General: Alert, Oriented X3, Cooperative, No acute distress Heart: Regular rate, Normal S1, Normal S2 Abdomen: Normal bowel sounds, No tenderness Extremities: No clubbing Skin: No breakdown Labs Labs: Laboratory Tests Test 06/01/21 06:00 White Blood Count 19.1 x10^3/uL (4.0-11.0) Red Blood Count 4.41 x10^6/uL (4.30-5.70) Hemoglobin 12.4 g/dL (13.0-17.5) Hematocrit 37.8 % (39.0-53.0) Mean Corpuscular Volume 86 fL (79-100) Mean Corpuscular Hemoglobin 28 pg (25-35) Mean Corpuscular Hemoglobin Concent 33 g/dL (31-37) Red Cell Distribution Width 14.7 % (11.5-14.5) Platelet Count 149 x10^3/uL (140-400) Neutrophils (%) (Auto) 91 % (31-73) Lymphocytes (%) (Auto) 2 % (24-48) Monocytes (%) (Auto) 7 % (0-9) Eosinophils (%) (Auto) 0 % (0-3) Basophils (%) (Auto) 0 % (0-3) Neutrophils # (Auto) 17.3 x10^3/uL (1.8-7.7) Lymphocytes # (Auto) 0.4 x10^3/uL (1.0-4.8) Monocytes # (Auto) 1.3 x10^3/uL (0.0-1.1) Eosinophils # (Auto) 0.0 x10^3/uL (0.0-0.7) Basophils # (Auto) 0.0 x10^3/uL (0.0-0.2) Sodium Level 142 mmol/L (136-145) Potassium Level 5.0 mmol/L (3.5-5.1) Chloride Level 109 mmol/L (98-107) Carbon Dioxide Level 28 mmol/L (21-32) Anion Gap 5 (6-14) Blood Urea Nitrogen 33 mg/dL (8-26) Creatinine 1.1 mg/dL (0.7-1.3) Estimated GFR (Cockcroft-Gault) 83.8 BUN/Creatinine Ratio 30 (6-20) Glucose Level 134 mg/dL (70-99) Calcium Level 8.8 mg/dL (8.5-10.1) Total Bilirubin 0.6 mg/dL (0.2-1.0) Aspartate Amino Transf (AST/SGOT) 14 U/L (15-37) Alanine Aminotransferase (ALT/SGPT) 24 U/L (16-63) Alkaline Phosphatase 56 U/L (46-116) Total Protein 5.5 g/dL (6.4-8.2) Albumin 2.1 g/dL (3.4-5.0) Albumin/Globulin Ratio 0.6 (1.0-1.7) Assessment and Plan Assessmemt and Plan Problems Medical Problems: (1) Hypoxia Status: Acute (2) Pneumonia due to COVID-19 virus Status: Acute Comment Review of Relevant I have reviewed the following items fawn (where applicable) has been applied. Justifications for Admission Other Justification COVID-19 pneumonia FENG DE LA TORRE MD Jun 01, 2021 08:00
[2021-06-01] MEDS: THIAMINE 100 MG TABLET. PO SCH (08:49)
[2021-06-01] MEDS: ZINC SULFATE 220 MG CAPSULE. PO SCH (08:49)
[2021-06-01] MEDS: ASPIRIN CHEWABLE 81 MG TABLET. PO SCH (08:50)
[2021-06-01] MEDS: SERTRALINE 50 MG TABLET. PO SCH (08:50)
[2021-06-01] MEDS: ASCORBIC ACID 1,000 MG TABLET PO SCH ×3 (08:50→21:28)
[2021-06-01] MEDS: FAMOTIDINE 20 MG TABLET. PO SCH ×2 (08:50→21:28)
[2021-06-01] MEDS: ALLOPURINOL 100 MG TABLET. PO SCH ×2 (08:50→21:28)
[2021-06-01] MEDS: PANTOPRAZOLE 40 MG TABLET.DR. PO SCH (08:50)
[2021-06-01] MEDS: LACTOBACILLUS RHAMNOSUS GG 1 CAPSULE. PO SCH ×2 (08:50→21:28)
[2021-06-01] MEDS: ENOXAPARIN 40 MG/0.4 ML SYRINGE. SQ SCH (08:51)
[2021-06-01 11:01] VITALS: BP 149/91
[2021-06-01] MEDS: methylPREDNISolone SOD SUCC PF 40 MG/ML VIAL. IV SCH ×2 (14:13→21:29)
[2021-06-01 15:00] VITALS: BP 166/91
[2021-06-01 19:00] VITALS: BP 157/91
[2021-06-01] MEDS: TOPIRAMATE 100 MG TABLET. PO SCH (21:29)
[2021-06-01 23:00] VITALS: BP 147/88
[2021-06-02 03:24] VITALS: BP 154/100
[2021-06-02 04:07] LABS: HEMOGLOBIN A1C 6.6 % (4.8-5.6)
[2021-06-02] MEDS: methylPREDNISolone SOD SUCC PF 40 MG/ML VIAL. IV SCH ×2 (06:03→22:01)
[2021-06-02 06:42] LABS: BASO # 0.1 x10^3/uL (0.0-0.2); BASO % 1 % (0-3); EOS % 0 % (0-3); HEMOGLOBIN 12.1 g/dL (13.0-17.5); LYMPH # 0.6 x10^3/uL (1.0-4.8); LYMPH % 3 % (24-48); MEAN CORPUSCULAR HEMOGLOBIN 28 pg (25-35); MEAN CORPUSCULAR HGB CONC 33 g/dL (31-37); MEAN CORPUSCULAR VOLUME 85 fL (79-100); MONO # 1.5 x10^3/uL (0.0-1.1); MONO % 8 % (0-9); NEUT # 16.7 x10^3/uL (1.8-7.7); NEUT % 88 % (31-73); PLATELET COUNT 140 x10^3/uL (140-400); RED BLOOD COUNT 4.34 x10^6/uL (4.30-5.70); RED CELL DISTRIBUTION WIDTH 14.5 % (11.5-14.5); WHITE BLOOD COUNT 18.9 x10^3/uL (4.0-11.0)
[2021-06-02 06:50] LABS: ALBUMIN 2.1 g/dL (3.4-5.0); ALBUMIN/GLOBULIN RATIO 0.6 (1.0-1.7); CALCIUM 8.7 mg/dL (8.5-10.1); CREATININE 1.2 mg/dL (0.7-1.3); GFR 75.8; TOTAL BILIRUBIN 0.6 mg/dL (0.2-1.0); TOTAL PROTEIN 5.4 g/dL (6.4-8.2)
[2021-06-02 07:00] VITALS: BP 154/100
--- NOTE | 2021-06-02 09:34 | PDOC ---
PULMONARY PROGRESS NOTES DATE: 06/02/21 TIME: 09:32 Subjective Patient was on 8 L nc sob better feeling better Vitals Vital Signs Date Time Temp Pulse Resp B/P (MAP) Pulse Ox O2 Delivery O2 Flow Rate FiO2 06/02/21 07:00 97.5 80 20 154/100 (118) 92 Nasal Cannula 8.0 97.5 Comments Visual exam done due to COVID-19. no distress nca t rrr no accessory muscle use No skin rash no leg edema. General: Alert, No acute distress Labs Laboratory Tests Test 06/01/21 06:00 06/02/21 06:00 White Blood Count 19.1 x10^3/uL (4.0-11.0) 18.9 x10^3/uL (4.0-11.0) Red Blood Count 4.41 x10^6/uL (4.30-5.70) 4.34 x10^6/uL (4.30-5.70) Hemoglobin 12.4 g/dL (13.0-17.5) 12.1 g/dL (13.0-17.5) Hematocrit 37.8 % (39.0-53.0) 37.0 % (39.0-53.0) Mean Corpuscular Volume 86 fL (79-100) 85 fL (79-100) Mean Corpuscular Hemoglobin 28 pg (25-35) 28 pg (25-35) Mean Corpuscular Hemoglobin Concent 33 g/dL (31-37) 33 g/dL (31-37) Red Cell Distribution Width 14.7 % (11.5-14.5) 14.5 % (11.5-14.5) Platelet Count 149 x10^3/uL (140-400) 140 x10^3/uL (140-400) Neutrophils (%) (Auto) 91 % (31-73) 88 % (31-73) Lymphocytes (%) (Auto) 2 % (24-48) 3 % (24-48) Monocytes (%) (Auto) 7 % (0-9) 8 % (0-9) Eosinophils (%) (Auto) 0 % (0-3) 0 % (0-3) Basophils (%) (Auto) 0 % (0-3) 1 % (0-3) Neutrophils # (Auto) 17.3 x10^3/uL (1.8-7.7) 16.7 x10^3/uL (1.8-7.7) Lymphocytes # (Auto) 0.4 x10^3/uL (1.0-4.8) 0.6 x10^3/uL (1.0-4.8) Monocytes # (Auto) 1.3 x10^3/uL (0.0-1.1) 1.5 x10^3/uL (0.0-1.1) Eosinophils # (Auto) 0.0 x10^3/uL (0.0-0.7) 0.0 x10^3/uL (0.0-0.7) Basophils # (Auto) 0.0 x10^3/uL (0.0-0.2) 0.1 x10^3/uL (0.0-0.2) Sodium Level 142 mmol/L (136-145) 142 mmol/L (136-145) Potassium Level 5.0 mmol/L (3.5-5.1) 5.0 mmol/L (3.5-5.1) Chloride Level 109 mmol/L (98-107) 107 mmol/L (98-107) Carbon Dioxide Level 28 mmol/L (21-32) 28 mmol/L (21-32) Anion Gap 5 (6-14) 7 (6-14) Blood Urea Nitrogen 33 mg/dL (8-26) 32 mg/dL (8-26) Creatinine 1.1 mg/dL (0.7-1.3) 1.2 mg/dL (0.7-1.3) Estimated GFR (Cockcroft-Gault) 83.8 75.8 BUN/Creatinine Ratio 30 (6-20) 27 (6-20) Glucose Level 134 mg/dL (70-99) 130 mg/dL (70-99) Calcium Level 8.8 mg/dL (8.5-10.1) 8.7 mg/dL (8.5-10.1) Total Bilirubin 0.6 mg/dL (0.2-1.0) 0.6 mg/dL (0.2-1.0) Aspartate Amino Transf (AST/SGOT) 14 U/L (15-37) 16 U/L (15-37) Alanine Aminotransferase (ALT/SGPT) 24 U/L (16-63) 28 U/L (16-63) Alkaline Phosphatase 56 U/L (46-116) 55 U/L (46-116) Total Protein 5.5 g/dL (6.4-8.2) 5.4 g/dL (6.4-8.2) Albumin 2.1 g/dL (3.4-5.0) 2.1 g/dL (3.4-5.0) Albumin/Globulin Ratio 0.6 (1.0-1.7) 0.6 (1.0-1.7) Laboratory Tests Test 06/02/21 06:00 White Blood Count 18.9 x10^3/uL (4.0-11.0) Red Blood Count 4.34 x10^6/uL (4.30-5.70) Hemoglobin 12.1 g/dL (13.0-17.5) Hematocrit 37.0 % (39.0-53.0) Mean Corpuscular Volume 85 fL (79-100) Mean Corpuscular Hemoglobin 28 pg (25-35) Mean Corpuscular Hemoglobin Concent 33 g/dL (31-37) Red Cell Distribution Width 14.5 % (11.5-14.5) Platelet Count 140 x10^3/uL (140-400) Neutrophils (%) (Auto) 88 % (31-73) Lymphocytes (%) (Auto) 3 % (24-48) Monocytes (%) (Auto) 8 % (0-9) Eosinophils (%) (Auto) 0 % (0-3) Basophils (%) (Auto) 1 % (0-3) Neutrophils # (Auto) 16.7 x10^3/uL (1.8-7.7) Lymphocytes # (Auto) 0.6 x10^3/uL (1.0-4.8) Monocytes # (Auto) 1.5 x10^3/uL (0.0-1.1) Eosinophils # (Auto) 0.0 x10^3/uL (0.0-0.7) Basophils # (Auto) 0.1 x10^3/uL (0.0-0.2) Sodium Level 142 mmol/L (136-145) Potassium Level 5.0 mmol/L (3.5-5.1) Chloride Level 107 mmol/L (98-107) Carbon Dioxide Level 28 mmol/L (21-32) Anion Gap 7 (6-14) Blood Urea Nitrogen 32 mg/dL (8-26) Creatinine 1.2 mg/dL (0.7-1.3) Estimated GFR (Cockcroft-Gault) 75.8 BUN/Creatinine Ratio 27 (6-20) Glucose Level 130 mg/dL (70-99) Calcium Level 8.7 mg/dL (8.5-10.1) Total Bilirubin 0.6 mg/dL (0.2-1.0) Aspartate Amino Transf (AST/SGOT) 16 U/L (15-37) Alanine Aminotransferase (ALT/SGPT) 28 U/L (16-63) Alkaline Phosphatase 55 U/L (46-116) Total Protein 5.4 g/dL (6.4-8.2) Albumin 2.1 g/dL (3.4-5.0) Albumin/Globulin Ratio 0.6 (1.0-1.7) Medications Active Scripts Medications Dose Route/Sig Max Daily Dose Days Date Category Hydrocodone-Acetamin 7.5-325 (Hydrocodone/Acetaminophen) 1 Each Tablet 1 Each PO Q6HRS PRN 05/18/21 Reported [percocet] Unknown Strength Unknown Dose 05/18/21 Reported [tramadol] Unknown Strength Unknown Dose 05/18/21 Reported Melatonin 10 Mg Capsule 1 Cap PO QHS 30 05/18/21 Reported Topiramate 50 Mg Tablet 3 Tab PO HS 30 05/18/21 Reported Zoloft (Sertraline Hcl) 50 Mg Tablet 1 Tab PO DAILY 05/18/21 Reported Amlodipine Besylate 10 Mg Tablet 10 Mg PO DAILY 05/18/21 Reported Allopurinol 100 Mg Tablet 1 Tab PO BID 05/18/21 Reported Tessalon Perle (Benzonatate) 100 Mg Capsule 1 Cap PO DAILY 05/18/21 Reported Proair Hfa Inhaler (Albuterol Sulfate) 8.5 Gm Hfa.aer.ad 2 Puff IH PRN Q4-6HRS PRN 21 05/18/21 Reported Aspirin 81 Mg Tab.chew 81 Mg PO DAILY 05/18/21 Reported Impression . 1. Acute hypoxic respiratory failure secondary to COVID-19 viral pneumonia./Acute lung injury/early ARDS. 2. Abnormal chest x-ray with bilateral patchy interstitial infiltrates consistent with COVID-19 viral pneumonia. 3. No significant tobacco history. 4. Acute kidney injury likely related to volume contraction. The patient has been having diarrhea. 5. Leukocytosis without any fever, likely due to steroids. We will monitor closely and leave him on empiric antibiotics. Plan . RECOMMENDATIONS: 1. Continue 02 titrate fio2 to keep sat 90% IS to use multiple times an hr 2. Continue with remdesivir full course. 3. taper Solu-Medrol 4. Lovenox for deep venous thrombosis prophylaxis. 5. Off antibiotics 6. Monitor white cell count and follow for any new fever. 7. He is a full code. Hopefully discharge in next 24 to 48 hours. Discussed with RN. STACY EASON MD Jun 02, 2021 09:34
[2021-06-02] MEDS: SERTRALINE 50 MG TABLET. PO SCH (09:58)
[2021-06-02] MEDS: ASPIRIN CHEWABLE 81 MG TABLET. PO SCH (09:58)
[2021-06-02] MEDS: ALLOPURINOL 100 MG TABLET. PO SCH ×2 (09:58→21:57)
[2021-06-02] MEDS: ASCORBIC ACID 1,000 MG TABLET PO SCH ×3 (09:58→21:57)
[2021-06-02] MEDS: LACTOBACILLUS RHAMNOSUS GG 1 CAPSULE. PO SCH ×2 (09:59→22:01)
[2021-06-02] MEDS: DOCUSATE SODIUM 100 MG CAPSULE. PO PRN (09:59)
[2021-06-02] MEDS: PANTOPRAZOLE 40 MG TABLET.DR. PO SCH (09:59)
[2021-06-02] MEDS: SENNOSIDES 8.6 MG TABLET PO PRN (09:59)
[2021-06-02] MEDS: THIAMINE 100 MG TABLET. PO SCH (09:59)
[2021-06-02] MEDS: ZINC SULFATE 220 MG CAPSULE. PO SCH (09:59)
[2021-06-02] MEDS: ENOXAPARIN 40 MG/0.4 ML SYRINGE. SQ SCH (10:00)
[2021-06-02] MEDS: FAMOTIDINE 20 MG TABLET. PO SCH ×2 (10:00→21:57)
--- NOTE | 2021-06-02 10:51 | NUR ---
SW following. Discussed with RN, pt from home, 8L oxygen - will need a 6 min walk prior to discharge. Pt wanting to leave AMA. COVID-19 positive. SW will continue to follow.
[2021-06-02] MEDS: HYDROcodone/APAP 7.5/325MG 1 TAB TABLET PO PRN (10:54)
[2021-06-02] MEDS: LIDO:MAALOX 1:1 20 ML SINGLE DOSE. PO PRN (10:54)
[2021-06-02 11:00] VITALS: BP 173/96
[2021-06-02] MEDS ORDERED: KETOROLAC 30 MG/ML VIAL. IV PRN (11:30)
--- NOTE | 2021-06-02 11:49 | PDOC ---
Renal-Progress Notes Subjective Notes Notes NO NEW COMPLAINTS History of Present Illness Hx of present illness STILL ON SIGNIFICANT SUPPLEMENTAL O2 Vitals Vitals Vital Signs Date Time Temp Pulse Resp B/P (MAP) Pulse Ox O2 Delivery O2 Flow Rate FiO2 06/02/21 11:00 97.9 81 20 173/96 (121) 90 Nasal Cannula 8.0 97.9 Weight Weight [ ] I.O. Intake and Output Intake and Output 06/02/21 07:00 Intake Total 240 ml Output Total 1000 ml Balance -760 ml Intake Oral 240 ml Output Urine Total 1000 ml Labs Labs Laboratory Tests Test 06/02/21 06:00 White Blood Count 18.9 x10^3/uL (4.0-11.0) Red Blood Count 4.34 x10^6/uL (4.30-5.70) Hemoglobin 12.1 g/dL (13.0-17.5) Hematocrit 37.0 % (39.0-53.0) Mean Corpuscular Volume 85 fL (79-100) Mean Corpuscular Hemoglobin 28 pg (25-35) Mean Corpuscular Hemoglobin Concent 33 g/dL (31-37) Red Cell Distribution Width 14.5 % (11.5-14.5) Platelet Count 140 x10^3/uL (140-400) Neutrophils (%) (Auto) 88 % (31-73) Lymphocytes (%) (Auto) 3 % (24-48) Monocytes (%) (Auto) 8 % (0-9) Eosinophils (%) (Auto) 0 % (0-3) Basophils (%) (Auto) 1 % (0-3) Neutrophils # (Auto) 16.7 x10^3/uL (1.8-7.7) Lymphocytes # (Auto) 0.6 x10^3/uL (1.0-4.8) Monocytes # (Auto) 1.5 x10^3/uL (0.0-1.1) Eosinophils # (Auto) 0.0 x10^3/uL (0.0-0.7) Basophils # (Auto) 0.1 x10^3/uL (0.0-0.2) Sodium Level 142 mmol/L (136-145) Potassium Level 5.0 mmol/L (3.5-5.1) Chloride Level 107 mmol/L (98-107) Carbon Dioxide Level 28 mmol/L (21-32) Anion Gap 7 (6-14) Blood Urea Nitrogen 32 mg/dL (8-26) Creatinine 1.2 mg/dL (0.7-1.3) Estimated GFR (Cockcroft-Gault) 75.8 BUN/Creatinine Ratio 27 (6-20) Glucose Level 130 mg/dL (70-99) Calcium Level 8.7 mg/dL (8.5-10.1) Total Bilirubin 0.6 mg/dL (0.2-1.0) Aspartate Amino Transf (AST/SGOT) 16 U/L (15-37) Alanine Aminotransferase (ALT/SGPT) 28 U/L (16-63) Alkaline Phosphatase 55 U/L (46-116) Total Protein 5.4 g/dL (6.4-8.2) Albumin 2.1 g/dL (3.4-5.0) Albumin/Globulin Ratio 0.6 (1.0-1.7) Micro Micro Microbiology 05/18/21 Blood Culture - Final, Complete NO GROWTH AFTER 5 DAYS Review of Systems Constitutional: yes: weakness, alert, oriented Ears/Nose/Throat: Yes: no symptom reported Eyes: Yes: no symptom reported Pulmonary: Yes dyspnea Cardiovascular: Yes no symptom reported Gastrointestional: Yes: no symptom reported Genitourinary: Yes: no symptom reported Musculoskeletal: Yes: no symptom reported Skin: Yes no symptom reported Psychiatric/Neurological: Yes: no symptom reported Physical Exam General Appearance: no apparent distress Skin: warm Respiratory: decreased breath sounds Heart: S1S2 Abdomen: soft, bowel sounds present Genitourinary: bladder flat Extremities: pulses present Neurology: alert Assessment Assessment Assessment/Plan RENAL FAILURE-DARIANA - RESOLVED HYPOXIA ACUTE RESP FAILURE COVID 19 PNEUMONIA LEUCOCYTOSIS OBESITY ? LEFT RENAL MASS-PROB BENIGN PLAN CONT TO TX COVID 19 SUPPLEMENTAL O2 RENAL SONOGRAM F/U IN SIX MONTHS HYDRATION NEEDED ON ANTIBIOTICS ENC PO WILL FOLLOW PRN GERTRUDE PARKER MD Jun 02, 2021 11:49
--- NOTE | 2021-06-02 12:18 | PDOC ---
[facility] [facility] PROGRESS NOTE Date of Service DOS: DATE: 06/02/21 TIME: 12:04 Chief Complaint Chief Complaint Acute hypoxic respiratory failure COVID-19 pneumonia DARIANA due to vasomotor nephropathy, possible undiagnosed CKD Obesity class I Hypernatremia History of Present Illness History of Present Illness Mr Parson is a 55 year old male w/ PMHx significant for history of CAD status post stenting who present to ER with a history of 2 weeks cough and trouble breathing. Patient was not vaccinated for COVID-19. Patient was diagnosed with COVID-19 on , he was seen at the [place], was tested positive for COVID-19. Patient came in today because of worsening trouble breathing. His oxygen saturation was 87% on room air. Patient denies history of diabetic, denies history of smoking denies history of COPD, not on oxygen at home. 05/20: No acute events overnight. Patient now requiring 8 L nasal cannula to saturate 97%. Patient is more short of breath. Remdesivir initiated. No concerns nursing at this time. 05/21: On 6 L nasal cannula saturating well. Still feeling more fatigued and just generalized illness. Some new onset upper abdominal pain, will start Pepcid and as needed GI cocktail. 05/22: He was on 4 L nasal cannula maintaining good saturations. Somewhat improved but overall feels fatigued still. Continue Covid protocol. Pulmonary consulted. 05/23: No OE. Saturating 98% on 8 L nasal cannula. Pulmonology was consulted and recommended to continue current management for Covid. Currently on IV Remdesivir. 05/24: Patient saturating 98% on 10 L nasal cannula. Still short of breath during speaking. CT abdomen pelvis ordered today to evaluate lesion on the kidney. Patient still does not know what is the cause of his renal failure. No history of hypertension or diabetes. Nephrology has been consulted. 05/25: No acute events overnight. Patient saturating 95% on 15 L nonrebreather. Switch IV fluids to D5W at 75 cc/h. 05/26: Afebrile. Vomited after paroxysmal coughing this morning. His mood is a little bit depressed. O2 saturation 96% on 15 L nonrebreather. 05/27: CT abdomen pelvis with no acute abdominal findings. Feel most nauseated today, vomiting after coughing. Feels weak and tired on 15 L. 8/18: Afebrile. No further vomiting. Still very weak requiring 15 L non-rebreather. PICC line placed for IV access 05/29: Afebrile. Still feeling weak. Now on 12 L nasal cannula oxygen with O2 saturations 91 to 94%. PICC functioning well. He is asking me to go home. K 5.3 05/30: Afebrile. Still profoundly weak. Asking if he can go home on 12 L of oxygen which is currently requiring with O2 saturations 91%. No chest pain, still very short of breath. And dry nose. 05/31: Afebrile. Pretty weak but his appetite is improving. O2 saturations 92% on 8 L today. No chest pain. He is eating Chick-al[employer]-A brought in by his family. 06/01: Afebrile. Little stronger. O2 saturations 96% on 8 L nasal cannula today. Denies chest pain shortness of breath is improved abdomen cough is minimal. WBC 19. He has been on antibiotics over 14 days will try off antibiotics as he is making significant clinical improvements. 06/02: Patient seen and examined. Discussed with RN. Chart reviewed. Vitals/I&O Vitals/I&O: Vital Signs Date Time Temp Pulse Resp B/P (MAP) Pulse Ox O2 Delivery O2 Flow Rate FiO2 06/02/21 11:00 97.9 81 20 173/96 (121) 90 Nasal Cannula 8.0 97.9 I & O 06/01/21 06/01/21 06/02/21 15:00 23:00 07:00 Intake Total 240 ml Output Total 700 ml 300 ml 0 ml Balance -460 ml -300 ml 0 ml Physical Exam General: Alert, Oriented X3, Cooperative, No acute distress Heart: Regular rate, Normal S1, Normal S2 Abdomen: Normal bowel sounds, No tenderness Extremities: No clubbing Skin: No breakdown Labs Labs: Laboratory Tests Test 06/02/21 06:00 White Blood Count 18.9 x10^3/uL (4.0-11.0) Red Blood Count 4.34 x10^6/uL (4.30-5.70) Hemoglobin 12.1 g/dL (13.0-17.5) Hematocrit 37.0 % (39.0-53.0) Mean Corpuscular Volume 85 fL (79-100) Mean Corpuscular Hemoglobin 28 pg (25-35) Mean Corpuscular Hemoglobin Concent 33 g/dL (31-37) Red Cell Distribution Width 14.5 % (11.5-14.5) Platelet Count 140 x10^3/uL (140-400) Neutrophils (%) (Auto) 88 % (31-73) Lymphocytes (%) (Auto) 3 % (24-48) Monocytes (%) (Auto) 8 % (0-9) Eosinophils (%) (Auto) 0 % (0-3) Basophils (%) (Auto) 1 % (0-3) Neutrophils # (Auto) 16.7 x10^3/uL (1.8-7.7) Lymphocytes # (Auto) 0.6 x10^3/uL (1.0-4.8) Monocytes # (Auto) 1.5 x10^3/uL (0.0-1.1) Eosinophils # (Auto) 0.0 x10^3/uL (0.0-0.7) Basophils # (Auto) 0.1 x10^3/uL (0.0-0.2) Sodium Level 142 mmol/L (136-145) Potassium Level 5.0 mmol/L (3.5-5.1) Chloride Level 107 mmol/L (98-107) Carbon Dioxide Level 28 mmol/L (21-32) Anion Gap 7 (6-14) Blood Urea Nitrogen 32 mg/dL (8-26) Creatinine 1.2 mg/dL (0.7-1.3) Estimated GFR (Cockcroft-Gault) 75.8 BUN/Creatinine Ratio 27 (6-20) Glucose Level 130 mg/dL (70-99) Calcium Level 8.7 mg/dL (8.5-10.1) Total Bilirubin 0.6 mg/dL (0.2-1.0) Aspartate Amino Transf (AST/SGOT) 16 U/L (15-37) Alanine Aminotransferase (ALT/SGPT) 28 U/L (16-63) Alkaline Phosphatase 55 U/L (46-116) Total Protein 5.4 g/dL (6.4-8.2) Albumin 2.1 g/dL (3.4-5.0) Albumin/Globulin Ratio 0.6 (1.0-1.7) Review of Systems Review of Systems: No bruises or abrasions. No fever. Assessment and Plan Assessmemt and Plan Problems Medical Problems: (1) Hypoxia Status: Acute (2) Pneumonia due to COVID-19 virus Status: Acute 06/02/2021: Covid protocol DVT prophylaxis Respiration isolation Home meds Trend labs Encourage PO intake Titrate down 02 Nephrology consult for acute on chronic kidney disease Continue remdesivir Pulmonology consult Continue Zosyn Continue IV thiamine and vitamin C IV Solu-Medrol Daily Pending ferritin, LDH, CRP, D-dimer labs Titrate O2 supplementation to maintain O2 saturation greater than 92% Lovenox for DVT prophylaxis Protonix while on steroids GI prophylaxis ADA diet Full code Discussed with RN and SW Disposition inpatient management as above Surrogate decision maker is the Comment Review of Relevant I have reviewed the following items fawn (where applicable) has been applied. Medications: Current Medications Medications (Trade) Dose Ordered Sig/Kerri Route PRN Reason Start Time Stop Time Status Last Admin Dose Admin Methylprednisolone Sodium Succinate (SOLU-Medrol 40MG VIAL) 40 mg Q8HRS IV 06/01/21 14:00 06/02/21 09:37 DC 06/02/21 06:03 Justifications for Admission Other Justification COVID-19 pneumonia DELTA QUIROGA III DO Jun 02, 2021 12:18
[2021-06-02 15:00] VITALS: BP 153/88
[2021-06-02 19:00] VITALS: BP 124/72
[2021-06-02] MEDS: TOPIRAMATE 100 MG TABLET. PO SCH (21:56)
[2021-06-02 23:00] VITALS: BP 133/77
[2021-06-03 03:00] VITALS: BP 124/75
[2021-06-03 07:00] VITALS: BP 127/82
[2021-06-03] MEDS: ALLOPURINOL 100 MG TABLET. PO SCH ×2 (09:00→21:33)
[2021-06-03] MEDS: FAMOTIDINE 20 MG TABLET. PO SCH ×2 (09:00→21:33)
[2021-06-03] MEDS: ZINC SULFATE 220 MG CAPSULE. PO SCH (09:00)
[2021-06-03] MEDS: SERTRALINE 50 MG TABLET. PO SCH (09:00)
[2021-06-03] MEDS: ASPIRIN CHEWABLE 81 MG TABLET. PO SCH (09:00)
[2021-06-03] MEDS: LACTOBACILLUS RHAMNOSUS GG 1 CAPSULE. PO SCH ×2 (09:00→21:33)
[2021-06-03] MEDS: THIAMINE 100 MG TABLET. PO SCH (09:00)
[2021-06-03] MEDS: ASCORBIC ACID 1,000 MG TABLET PO SCH ×3 (09:00→21:33)
[2021-06-03] MEDS: methylPREDNISolone SOD SUCC PF 40 MG/ML VIAL. IV SCH ×2 (09:02→21:33)
[2021-06-03] MEDS: PANTOPRAZOLE 40 MG TABLET.DR. PO SCH (09:04)
[2021-06-03] MEDS: ENOXAPARIN 40 MG/0.4 ML SYRINGE. SQ SCH (09:06)
[2021-06-03 11:00] VITALS: BP 149/91
--- NOTE | 2021-06-03 11:36 | PDOC ---
Renal-Progress Notes Subjective Notes Notes NO NEW COMPLAINTS History of Present Illness Hx of present illness STABLE Vitals Vitals Vital Signs Date Time Temp Pulse Resp B/P (MAP) Pulse Ox O2 Delivery O2 Flow Rate FiO2 06/03/21 11:00 97.5 85 30 149/91 (110) 92 97.5 06/02/21 19:30 Nasal Cannula 6.0 Weight Weight [ ] I.O. Intake and Output Intake and Output 06/03/21 06:59 Intake Total 400 ml Output Total 900 ml Balance -500 ml Intake Oral 400 ml Output Urine Total 900 ml Micro Micro Microbiology 05/18/21 Blood Culture - Final, Complete NO GROWTH AFTER 5 DAYS Review of Systems Constitutional: yes: weakness, alert, oriented Ears/Nose/Throat: Yes: no symptom reported Eyes: Yes: no symptom reported Pulmonary: Yes dyspnea Cardiovascular: Yes no symptom reported Gastrointestional: Yes: no symptom reported Genitourinary: Yes: no symptom reported Musculoskeletal: Yes: no symptom reported Skin: Yes no symptom reported Psychiatric/Neurological: Yes: no symptom reported Physical Exam General Appearance: no apparent distress Skin: warm Respiratory: decreased breath sounds Heart: S1S2 Abdomen: soft, bowel sounds present Genitourinary: bladder flat Extremities: pulses present Neurology: alert Assessment Assessment Assessment/Plan RENAL FAILURE-DARIANA - RESOLVED HYPOXIA ACUTE RESP FAILURE COVID 19 PNEUMONIA LEUCOCYTOSIS OBESITY ? LEFT RENAL MASS-PROB BENIGN PLAN CONT TO TX COVID 19 SUPPLEMENTAL O2 RENAL SONOGRAM F/U IN SIX MONTHS HYDRATION NEEDED ON ANTIBIOTICS WILL SIGN OFF WILL NEED RENAL F/U IN 6 MONTHS AT D/C GERTRUDE PARKER MD Jun 03, 2021 11:36
--- NOTE | 2021-06-03 12:19 | PDOC ---
[facility] PROGRESS NOTE Date of Service DOS: DATE: 06/03/21 TIME: 12:08 Chief Complaint Chief Complaint CC: Acute hypoxic respiratory failure COVID-19 pneumonia DARIANA due to vasomotor nephropathy, possible undiagnosed CKD Obesity class I Hypernatremia History of Present Illness History of Present Illness Mr Parson is a 55 year old male w/ PMHx significant for history of CAD status post stenting who present to ER with a history of 2 weeks cough and trouble breathing. Patient was not vaccinated for COVID-19. Patient was diagnosed with COVID-19 on , he was seen [facility], was tested positive for COVID-19. Patient came in today because of worsening trouble breathing. His oxygen saturation was 87% on room air. Patient denies history of diabetic, denies history of smoking denies history of COPD, not on oxygen at home. 05/20: No acute events overnight. Patient now requiring 8 L nasal cannula to saturate 97%. Patient is more short of breath. Remdesivir initiated. No concerns nursing at this time. 05/21: On 6 L nasal cannula saturating well. Still feeling more fatigued and just generalized illness. Some new onset upper abdominal pain, will start Pepcid and as needed GI cocktail. 05/22: He was on 4 L nasal cannula maintaining good saturations. Somewhat improved but overall feels fatigued still. Continue Covid protocol. Pulmonary consulted. 05/23: No OE. Saturating 98% on 8 L nasal cannula. Pulmonology was consulted and recommended to continue current management for Covid. Currently on IV Remdesivir. 05/24: Patient saturating 98% on 10 L nasal cannula. Still short of breath during speaking. CT abdomen pelvis ordered today to evaluate lesion on the kidney. Patient still does not know what is the cause of his renal failure. No history of hypertension or diabetes. Nephrology has been consulted. 05/25: No acute events overnight. Patient saturating 95% on 15 L nonrebreather. Switch IV fluids to D5W at 75 cc/h. 05/26: Afebrile. Vomited after paroxysmal coughing this morning. His mood is a little bit depressed. O2 saturation 96% on 15 L nonrebreather. 05/27: CT abdomen pelvis with no acute abdominal findings. Feel most nauseated today, vomiting after coughing. Feels weak and tired on 15 L. 05/28: Afebrile. No further vomiting. Still very weak requiring 15 L non-rebre ather. PICC line placed for IV access 05/29: Afebrile. Still feeling weak. Now on 12 L nasal cannula oxygen with O2 saturations 91 to 94%. PICC functioning well. He is asking me to go home. K 5.3 05/30: Afebrile. Still profoundly weak. Asking if he can go home on 12 L of oxygen which is currently requiring with O2 saturations 91%. No chest pain, still very short of breath. And dry nose. 05/31: Afebrile. Pretty weak but his appetite is improving. O2 saturations 92% on 8 L today. No chest pain. He is eating Chick-alina-A brought in by his family. 06/01: Afebrile. Little stronger. O2 saturations 96% on 8 L nasal cannula today. Denies chest pain shortness of breath is improved abdomen cough is minimal. WBC 19. He has been on antibiotics over 14 days will try off antibiotics as he is making significant clinical improvements. 06/02: Patient seen and examined. Discussed with RN. Chart reviewed. 06/03: Patient was seen and examined. Seemed more alert than yesterday. Discussed with RN. Chart was reviewed. Spoke to on phone about plan. Vitals/I&O Vitals/I&O: Vital Signs Date Time Temp Pulse Resp B/P (MAP) Pulse Ox O2 Delivery O2 Flow Rate FiO2 06/03/21 11:00 97.5 85 30 149/91 (110) 92 97.5 06/02/21 19:30 Nasal Cannula 6.0 I & O 06/02/21 06/02/21 06/03/21 15:00 23:00 07:00 Intake Total 400 ml Output Total 200 ml 700 ml Balance -200 ml 400 ml -700 ml Physical Exam General: Alert, Oriented X3, Cooperative, No acute distress Heart: Regular rate, Normal S1, Normal S2 Abdomen: Normal bowel sounds, No tenderness Extremities: No clubbing Skin: No rashes, No breakdown Review of Systems Review of Systems: no vomiting, no accessory muscle use with respiration Assessment and Plan Assessmemt and Plan Problems Medical Problems: (1) Hypoxia Status: Acute (2) Pneumonia due to COVID-19 virus Status: Acute Acute hypoxic respiratory failure COVID-19 pneumonia DARIANA due to vasomotor nephropathy, possible undiagnosed CKD Obesity class I Hypernatremia Plan: Titrate down 02 while maintaining O2 saturation greater than 92% Cardiac monitoring PT/OT Continue Lovenox for DVT prophylaxis Respiration isolation Home meds Trend labs Encourage PO intake Comment Review of Relevant I have reviewed the following items fawn (where applicable) has been applied. Medications: Current Medications Medications (Trade) Dose Ordered Sig/Kerri Route PRN Reason Start Time Stop Time Status Last Admin Dose Admin Methylprednisolone Sodium Succinate (SOLU-Medrol 40MG VIAL) 40 mg BID IV 06/02/21 21:00 06/03/21 09:02 Justifications for Admission Other Justification COVID-19 pneumonia DELTA QUIROGA K III DO Jun 03, 2021 12:19
--- NOTE | 2021-06-03 14:55 | NUR ---
SS following up with discharge planning. SS reviewed pt chart and discussed with pt RN. Pt is currently requiring oxygen at eight liters nasal canula. COVID19 positive. Pt on IV Solu Medrol. PT/OT ordered. SS received phone contact from [facility], Joshua Lujan, stating that pt and family [facility]. SS was provided with contact information for [facility], Caroline Carter, ext [phone]; fax [phone]. SS contacted Caroline Carter and made request for transfer. SS was notified that the [facility] has no beds available for transfer at this time. Pt's RN notified. SS will continue to follow for discharge planning.
[2021-06-03 15:00] VITALS: BP 145/82
[2021-06-03 19:00] VITALS: BP 117/60
[2021-06-03] MEDS: TOPIRAMATE 100 MG TABLET. PO SCH (21:33)
[2021-06-03 23:34] VITALS: BP 125/76
[2021-06-04 03:47] VITALS: BP 123/69
[2021-06-04 06:55] LABS: BASO % 0 % (0-3); EOS % 0 % (0-3); HEMATOCRIT 36.3 % (39.0-53.0); HEMOGLOBIN 11.9 g/dL (13.0-17.5); LYMPH # 0.4 x10^3/uL (1.0-4.8); LYMPH % 2 % (24-48); MEAN CORPUSCULAR HEMOGLOBIN 28 pg (25-35); MEAN CORPUSCULAR HGB CONC 33 g/dL (31-37); MEAN CORPUSCULAR VOLUME 85 fL (79-100); MONO # 1.1 x10^3/uL (0.0-1.1); MONO % 6 % (0-9); NEUT # 16.4 x10^3/uL (1.8-7.7); NEUT % 91 % (31-73); PLATELET COUNT 106 x10^3/uL (140-400); RED BLOOD COUNT 4.25 x10^6/uL (4.30-5.70); RED CELL DISTRIBUTION WIDTH 14.5 % (11.5-14.5)
[2021-06-04 07:00] VITALS: BP 117/73
[2021-06-04 07:28] LABS: CALCIUM 8.5 mg/dL (8.5-10.1); GFR 93.5; POTASSIUM 4.6 mmol/L (3.5-5.1)
--- NOTE | 2021-06-04 09:13 | PDOC ---
[facility] PROGRESS NOTE Date of Service DOS: DATE: 06/04/21 TIME: 08:56 Chief Complaint Chief Complaint CC: Acute hypoxic respiratory failure COVID-19 pneumonia DARIANA due to vasomotor nephropathy, possible undiagnosed CKD Obesity class I Hypernatremia History of Present Illness History of Present Illness Mr Parson is a 55 year old male w/ PMHx significant for history of CAD status post stenting who present to ER with a history of 2 weeks cough and trouble breathing. Patient was not vaccinated for COVID-19. Patient was diagnosed with COVID-19 on , he was seen at the [place], was tested positive for COVID-19. Patient came in today because of worsening trouble breathing. His oxygen saturation was 87% on room air. Patient denies history of diabetic, denies history of smoking denies history of COPD, not on oxygen at home. 05/20: No acute events overnight. Patient now requiring 8 L nasal cannula to saturate 97%. Patient is more short of breath. Remdesivir initiated. No concerns nursing at this time. 05/21: On 6 L nasal cannula saturating well. Still feeling more fatigued and just generalized illness. Some new onset upper abdominal pain, will start Pepcid and as needed GI cocktail. 05/22: He was on 4 L nasal cannula maintaining good saturations. Somewhat improved but overall feels fatigued still. Continue Covid protocol. Pulmonary consulted. 05/23: No OE. Saturating 98% on 8 L nasal cannula. Pulmonology was consulted and recommended to continue current management for Covid. Currently on IV Remdesivir. 05/24: Patient saturating 98% on 10 L nasal cannula. Still short of breath during speaking. CT abdomen pelvis ordered today to evaluate lesion on the kidney. Patient still does not know what is the cause of his renal failure. No history of hypertension or diabetes. Nephrology has been consulted. 05/25: No acute events overnight. Patient saturating 95% on 15 L nonrebreather. Switch IV fluids to D5W at 75 cc/h. 05/26: Afebrile. Vomited after paroxysmal coughing this morning. His mood is a little bit depressed. O2 saturation 96% on 15 L nonrebreather. 05/27: CT abdomen pelvis with no acute abdominal findings. Feel most nauseated today, vomiting after coughing. Feels weak and tired on 15 L. 05/28: Afebrile. No further vomiting. Still very weak requiring 15 L non-rebre ather. PICC line placed for IV access 05/29: Afebrile. Still feeling weak. Now on 12 L nasal cannula oxygen with O2 saturations 91 to 94%. PICC functioning well. He is asking me to go home. K 5.3 05/30: Afebrile. Still profoundly weak. Asking if he can go home on 12 L of oxygen which is currently requiring with O2 saturations 91%. No chest pain, still very short of breath. And dry nose. 05/31: Afebrile. Pretty weak but his appetite is improving. O2 saturations 92% on 8 L today. No chest pain. He is eating Chick-alina-A brought in by his family. 06/01: Afebrile. Little stronger. O2 saturations 96% on 8 L nasal cannula today. Denies chest pain shortness of breath is improved abdomen cough is minimal. WBC 19. He has been on antibiotics over 14 days will try off antibiotics as he is making significant clinical improvements. 06/02: Patient seen and examined. Discussed with RN. Chart reviewed. 06/03: Patient was seen and examined. Seemed more alert than yesterday. Discussed with RN. Chart was reviewed. Spoke to on phone about plan. 06/04: Patient was seen and examined and seemed more alert than yesterday. He had moved out of the bed and to his chair. On 4L O2 at 97% O2 sat. Discussed with RN. Chart reviewed. Vitals/I&O Vitals/I&O: Vital Signs Date Time Temp Pulse Resp B/P (MAP) Pulse Ox O2 Delivery O2 Flow Rate FiO2 06/04/21 03:47 98.3 74 20 123/69 (87) 94 Nasal Cannula 4.0 98.3 I & O 06/03/21 06/03/21 06/04/21 14:59 22:59 06:59 Intake Total 120 ml 600 ml 0 ml Output Total 400 ml 250 ml 400 ml Balance -280 ml 350 ml -400 ml Physical Exam General: Alert, Oriented X3, Cooperative, No acute distress Heart: Regular rate, Normal S1, Normal S2 Abdomen: Normal bowel sounds, No tenderness Extremities: No clubbing, No edema Skin: No rashes, No breakdown Labs Labs: Laboratory Tests Test 06/04/21 06:35 White Blood Count 18.0 x10^3/uL (4.0-11.0) Red Blood Count 4.25 x10^6/uL (4.30-5.70) Hemoglobin 11.9 g/dL (13.0-17.5) Hematocrit 36.3 % (39.0-53.0) Mean Corpuscular Volume 85 fL (79-100) Mean Corpuscular Hemoglobin 28 pg (25-35) Mean Corpuscular Hemoglobin Concent 33 g/dL (31-37) Red Cell Distribution Width 14.5 % (11.5-14.5) Platelet Count 106 x10^3/uL (140-400) Neutrophils (%) (Auto) 91 % (31-73) Lymphocytes (%) (Auto) 2 % (24-48) Monocytes (%) (Auto) 6 % (0-9) Eosinophils (%) (Auto) 0 % (0-3) Basophils (%) (Auto) 0 % (0-3) Neutrophils # (Auto) 16.4 x10^3/uL (1.8-7.7) Lymphocytes # (Auto) 0.4 x10^3/uL (1.0-4.8) Monocytes # (Auto) 1.1 x10^3/uL (0.0-1.1) Eosinophils # (Auto) 0.0 x10^3/uL (0.0-0.7) Basophils # (Auto) 0.0 x10^3/uL (0.0-0.2) Sodium Level 137 mmol/L (136-145) Potassium Level 4.6 mmol/L (3.5-5.1) Chloride Level 104 mmol/L (98-107) Carbon Dioxide Level 28 mmol/L (21-32) Anion Gap 5 (6-14) Blood Urea Nitrogen 28 mg/dL (8-26) Creatinine 1.0 mg/dL (0.7-1.3) Estimated GFR (Cockcroft-Gault) 93.5 Glucose Level 135 mg/dL (70-99) Calcium Level 8.5 mg/dL (8.5-10.1) Review of Systems Review of Systems: no vomiting. no confusion. Assessment and Plan Assessmemt and Plan Problems Medical Problems: (1) Hypoxia Status: Acute (2) Pneumonia due to COVID-19 virus Status: Acute Acute hypoxic respiratory failure COVID-19 pneumonia DARIANA due to vasomotor nephropathy, possible undiagnosed CKD Obesity class I Hypernatremia Plan: Continue to titrate O2 while maintaining O2 sat greater than 92% Probable discharge tomorrow Continue Lovenox for DVT prophylaxis Protonix while on steroids GI prophylaxis ADA diet Full code PT/OT Encourage PO intake Home meds Trend labs Comment Review of Relevant I have reviewed the following items fawn (where applicable) has been applied. Justifications for Admission Other Justification COVID-19 pneumonia DELTA QUIROGA III DO Jun 04, 2021 09:13
[2021-06-04] MEDS: methylPREDNISolone SOD SUCC PF 40 MG/ML VIAL. IV SCH ×2 (09:54→20:36)
[2021-06-04] MEDS: ASPIRIN CHEWABLE 81 MG TABLET. PO SCH (09:58)
[2021-06-04] MEDS: PANTOPRAZOLE 40 MG TABLET.DR. PO SCH (09:58)
[2021-06-04] MEDS: ZINC SULFATE 220 MG CAPSULE. PO SCH (09:58)
[2021-06-04] MEDS: LACTOBACILLUS RHAMNOSUS GG 1 CAPSULE. PO SCH ×2 (09:58→20:37)
[2021-06-04] MEDS: FAMOTIDINE 20 MG TABLET. PO SCH ×2 (09:59→20:37)
[2021-06-04] MEDS: SERTRALINE 50 MG TABLET. PO SCH (10:07)
[2021-06-04] MEDS: THIAMINE 100 MG TABLET. PO SCH (10:07)
[2021-06-04] MEDS: ALLOPURINOL 100 MG TABLET. PO SCH ×2 (10:08→20:37)
[2021-06-04] MEDS: ENOXAPARIN 40 MG/0.4 ML SYRINGE. SQ SCH (10:08)
[2021-06-04] MEDS: ASCORBIC ACID 1,000 MG TABLET PO SCH ×3 (10:08→20:37)
--- NOTE | 2021-06-04 10:34 | PDOC ---
PULMONARY PROGRESS NOTES DATE: 06/04/21 TIME: 10:33 Subjective Patient was on 4 L nc sob better feeling better Vitals Vital Signs Date Time Temp Pulse Resp B/P (MAP) Pulse Ox O2 Delivery O2 Flow Rate FiO2 06/04/21 10:07 83 117/73 06/04/21 07:00 97.6 20 94 Nasal Cannula 4.0 97.6 Comments Visual exam done due to COVID-19. no distress nca t rrr no accessory muscle use No skin rash no leg edema. General: Alert, No acute distress Labs Laboratory Tests Test 06/04/21 06:35 White Blood Count 18.0 x10^3/uL (4.0-11.0) Red Blood Count 4.25 x10^6/uL (4.30-5.70) Hemoglobin 11.9 g/dL (13.0-17.5) Hematocrit 36.3 % (39.0-53.0) Mean Corpuscular Volume 85 fL (79-100) Mean Corpuscular Hemoglobin 28 pg (25-35) Mean Corpuscular Hemoglobin Concent 33 g/dL (31-37) Red Cell Distribution Width 14.5 % (11.5-14.5) Platelet Count 106 x10^3/uL (140-400) Neutrophils (%) (Auto) 91 % (31-73) Lymphocytes (%) (Auto) 2 % (24-48) Monocytes (%) (Auto) 6 % (0-9) Eosinophils (%) (Auto) 0 % (0-3) Basophils (%) (Auto) 0 % (0-3) Neutrophils # (Auto) 16.4 x10^3/uL (1.8-7.7) Lymphocytes # (Auto) 0.4 x10^3/uL (1.0-4.8) Monocytes # (Auto) 1.1 x10^3/uL (0.0-1.1) Eosinophils # (Auto) 0.0 x10^3/uL (0.0-0.7) Basophils # (Auto) 0.0 x10^3/uL (0.0-0.2) Sodium Level 137 mmol/L (136-145) Potassium Level 4.6 mmol/L (3.5-5.1) Chloride Level 104 mmol/L (98-107) Carbon Dioxide Level 28 mmol/L (21-32) Anion Gap 5 (6-14) Blood Urea Nitrogen 28 mg/dL (8-26) Creatinine 1.0 mg/dL (0.7-1.3) Estimated GFR (Cockcroft-Gault) 93.5 Glucose Level 135 mg/dL (70-99) Calcium Level 8.5 mg/dL (8.5-10.1) Laboratory Tests Test 06/04/21 06:35 White Blood Count 18.0 x10^3/uL (4.0-11.0) Red Blood Count 4.25 x10^6/uL (4.30-5.70) Hemoglobin 11.9 g/dL (13.0-17.5) Hematocrit 36.3 % (39.0-53.0) Mean Corpuscular Volume 85 fL (79-100) Mean Corpuscular Hemoglobin 28 pg (25-35) Mean Corpuscular Hemoglobin Concent 33 g/dL (31-37) Red Cell Distribution Width 14.5 % (11.5-14.5) Platelet Count 106 x10^3/uL (140-400) Neutrophils (%) (Auto) 91 % (31-73) Lymphocytes (%) (Auto) 2 % (24-48) Monocytes (%) (Auto) 6 % (0-9) Eosinophils (%) (Auto) 0 % (0-3) Basophils (%) (Auto) 0 % (0-3) Neutrophils # (Auto) 16.4 x10^3/uL (1.8-7.7) Lymphocytes # (Auto) 0.4 x10^3/uL (1.0-4.8) Monocytes # (Auto) 1.1 x10^3/uL (0.0-1.1) Eosinophils # (Auto) 0.0 x10^3/uL (0.0-0.7) Basophils # (Auto) 0.0 x10^3/uL (0.0-0.2) Sodium Level 137 mmol/L (136-145) Potassium Level 4.6 mmol/L (3.5-5.1) Chloride Level 104 mmol/L (98-107) Carbon Dioxide Level 28 mmol/L (21-32) Anion Gap 5 (6-14) Blood Urea Nitrogen 28 mg/dL (8-26) Creatinine 1.0 mg/dL (0.7-1.3) Estimated GFR (Cockcroft-Gault) 93.5 Glucose Level 135 mg/dL (70-99) Calcium Level 8.5 mg/dL (8.5-10.1) Medications Active Scripts Medications Dose Route/Sig Max Daily Dose Days Date Category Hydrocodone-Acetamin 7.5-325 (Hydrocodone/Acetaminophen) 1 Each Tablet 1 Each PO Q6HRS PRN 05/18/21 Reported [percocet] Unknown Strength Unknown Dose 05/18/21 Reported [tramadol] Unknown Strength Unknown Dose 05/18/21 Reported Melatonin 10 Mg Capsule 1 Cap PO QHS 30 05/18/21 Reported Topiramate 50 Mg Tablet 3 Tab PO HS 30 05/18/21 Reported Zoloft (Sertraline Hcl) 50 Mg Tablet 1 Tab PO DAILY 05/18/21 Reported Amlodipine Besylate 10 Mg Tablet 10 Mg PO DAILY 05/18/21 Reported Allopurinol 100 Mg Tablet 1 Tab PO BID 05/18/21 Reported Tessalon Perle (Benzonatate) 100 Mg Capsule 1 Cap PO DAILY 05/18/21 Reported Proair Hfa Inhaler (Albuterol Sulfate) 8.5 Gm Hfa.aer.ad 2 Puff IH PRN Q4-6HRS PRN 21 05/18/21 Reported Aspirin 81 Mg Tab.chew 81 Mg PO DAILY 05/18/21 Reported Impression . 1. Acute hypoxic respiratory failure secondary to COVID-19 viral pneumonia./Acute lung injury/early ARDS. 2. Abnormal chest x-ray with bilateral patchy interstitial infiltrates consistent with COVID-19 viral pneumonia. 3. No significant tobacco history. 4. Acute kidney injury likely related to volume contraction. The patient has been having diarrhea. 5. Leukocytosis without any fever, likely due to steroids. Plan . RECOMMENDATIONS: 1. Continue 02 titrate fio2 to keep sat 90%. Currently down to 4 L nasal cannula. IS to use multiple times an hr 2. Continue with remdesivir full course. 3. taper Solu-Medrol. Change to prednisone. 4. Lovenox for deep venous thrombosis prophylaxis. 5. Off antibiotics 6. Monitor white cell count and follow for any new fever. 7. He is a full code. 6-minute walk test on discharge per PCP. Will be available for any further recommendations. Will sign off for now STACY EASON MD Jun 04, 2021 10:34
[2021-06-04 10:58] VITALS: BP 116/75
--- NOTE | 2021-06-04 11:29 | NUR ---
SW following. Discussed with RN, 6 minute walk ordered, awaiting result to arrange home oxygen if needed. SW will continue to follow.
--- NOTE | 2021-06-04 14:33 | DS ---
DATE OF DISCHARGE: 06/04/2021 ADMITTING DIAGNOSES: Respiratory failure, COVID-19 and pneumonia. DISCHARGE DIAGNOSES: Resolving respiratory failure, resolving COVID-19, resolving pneumonia, hypertension, insomnia, depression, anxiety. CONSULTS: Pulmonary Medicine. PROCEDURES: None. 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 He was admitted. We gave him some remdesivir, steroids, broad spectrum antibiotics, plus vitamins and minerals, albuterol, oxygen, codeine cough syrup and aspirin. We did consult Pulmonary Medicine and basically over the past 17 days, he has slowly recovered. He is still requiring a little bit of oxygen, about 2-3 liters. I saw him and examined this morning. He would like to go home. Pulmonary is okay with him going home. I have discussed the case with the nurse. We plan to discharge. I left prescriptions for Medrol Dosepak, a Z-YELENA and home oxygen. DISPOSITION: Home. ACTIVITY: As tolerated. DIET: Low sodium. DISCHARGE MEDICATIONS: Please see the MRAD. 1. Medrol Dosepak. 2. Z-YELENA. 3. Albuterol. 4. Allopurinol 100 b.i.d. 5. Amlodipine 10 a day. 6. Aspirin 81 a day. 7. Benzonatate 100 mg p.r.n. We will continue his home hydrocodone, melatonin at bedtime, sertraline 50 a day and p.r.n. Ultram. Total time [address]: Damien TID: [id number]
[2021-06-04 15:00] VITALS: BP 114/72
[2021-06-04 19:00] VITALS: BP_SYST 11; BP_SYST 111; BP_DIAS 62
[2021-06-04] MEDS: TOPIRAMATE 100 MG TABLET. PO SCH (20:37)
[2021-06-04 23:00] VITALS: BP 119/64
[2021-06-05 06:33] LABS: CALCIUM 8.9 mg/dL (8.5-10.1); CREATININE 1.1 mg/dL (0.7-1.3); GFR 83.8; POTASSIUM 4.6 mmol/L (3.5-5.1)
[2021-06-05 07:00] VITALS: BP 116/67
[2021-06-05 07:14] LABS: BASO % 0 % (0-3); EOS % 0 % (0-3); HEMATOCRIT 36.6 % (39.0-53.0); HEMOGLOBIN 12.1 g/dL (13.0-17.5); LYMPH # 0.6 x10^3/uL (1.0-4.8); LYMPH % 3 % (24-48); MEAN CORPUSCULAR HEMOGLOBIN 28 pg (25-35); MEAN CORPUSCULAR HGB CONC 33 g/dL (31-37); MEAN CORPUSCULAR VOLUME 86 fL (79-100); MONO # 1.1 x10^3/uL (0.0-1.1); MONO % 5 % (0-9); NEUT # 17.9 x10^3/uL (1.8-7.7); NEUT % 91 % (31-73); PLATELET COUNT 92 x10^3/uL (140-400); RED BLOOD COUNT 4.27 x10^6/uL (4.30-5.70); RED CELL DISTRIBUTION WIDTH 14.4 % (11.5-14.5); WHITE BLOOD COUNT 19.7 x10^3/uL (4.0-11.0)
[2021-06-05] MEDS: ZINC SULFATE 220 MG CAPSULE. PO SCH (09:00)
[2021-06-05] MEDS: FAMOTIDINE 20 MG TABLET. PO SCH ×2 (09:00→20:56)
[2021-06-05] MEDS: ASPIRIN CHEWABLE 81 MG TABLET. PO SCH (09:00)
[2021-06-05] MEDS: LACTOBACILLUS RHAMNOSUS GG 1 CAPSULE. PO SCH ×2 (09:00→20:56)
[2021-06-05] MEDS: ASCORBIC ACID 1,000 MG TABLET PO SCH ×3 (09:00→20:56)
[2021-06-05] MEDS: THIAMINE 100 MG TABLET. PO SCH (09:00)
[2021-06-05] MEDS: SERTRALINE 50 MG TABLET. PO SCH (09:00)
[2021-06-05] MEDS: ALLOPURINOL 100 MG TABLET. PO SCH ×2 (09:00→20:56)
[2021-06-05] MEDS: PANTOPRAZOLE 40 MG TABLET.DR. PO SCH (09:13)
[2021-06-05] MEDS: ENOXAPARIN 40 MG/0.4 ML SYRINGE. SQ SCH (09:13)
[2021-06-05] MEDS: methylPREDNISolone SOD SUCC PF 40 MG/ML VIAL. IV SCH ×2 (09:13→20:56)
[2021-06-05 11:00] VITALS: BP 121/68
--- NOTE | 2021-06-05 11:31 | PDOC ---
[employer] PROGRESS NOTE Date of Service DOS: DATE: 06/05/21 TIME: :23 Chief Complaint Chief Complaint CC: Acute hypoxic respiratory failure COVID-19 pneumonia DARIANA due to vasomotor nephropathy, possible undiagnosed CKD Obesity class I Hypernatremia History of Present Illness History of Present Illness Mr Parson is a 55 year old male w/ PMHx significant for history of CAD status post stenting who present to ER with a history of 2 weeks cough and trouble breathing. Patient was not vaccinated for COVID-19. Patient was diagnosed with COVID-19 on , [facility] was seen [facility], was tested positive for COVID-19. Patient came in today because of worsening trouble breathing. His oxygen saturation was 87% on room air. Patient denies history of diabetic, denies history of smoking denies history of COPD, not on oxygen at home. 05/20: No acute events overnight. Patient now requiring 8 L nasal cannula to saturate 97%. Patient is more short of breath. Remdesivir initiated. No concerns nursing at this time. 05/21: On 6 L nasal cannula saturating well. Still feeling more fatigued and just generalized illness. Some new onset upper abdominal pain, will start Pepcid and as needed GI cocktail. 05/22: He was on 4 L nasal cannula maintaining good saturations. Somewhat improved but overall feels fatigued still. Continue Covid protocol. Pulmonary consulted. 05/23: No OE. Saturating 98% on 8 L nasal cannula. Pulmonology was consulted and recommended to continue current management for Covid. Currently on IV Remdesivir. 05/24: Patient saturating 98% on 10 L nasal cannula. Still short of breath during speaking. CT abdomen pelvis ordered today to evaluate lesion on the kidney. Patient still does not know what is the cause of his renal failure. No history of hypertension or diabetes. Nephrology has been consulted. 05/25: No acute events overnight. Patient saturating 95% on 15 L nonrebreather. Switch IV fluids to D5W at 75 cc/h. 05/26: Afebrile. Vomited after paroxysmal coughing this morning. His mood is a little bit depressed. O2 saturation 96% on 15 L nonrebreather. 05/27: CT abdomen pelvis with no acute abdominal findings. Feel most nauseated today, vomiting after coughing. Feels weak and tired on 15 L. 05/28: Afebrile. No further vomiting. Still very weak requiring 15 L non-rebre ather. PICC line placed for IV access 05/29: Afebrile. Still feeling weak. Now on 12 L nasal cannula oxygen with O2 saturations 91 to 94%. PICC functioning well. He is asking me to go home. K 5.3 05/30: Afebrile. Still profoundly weak. Asking if he can go home on 12 L of oxygen which is currently requiring with O2 saturations 91%. No chest pain, still very short of breath. And dry nose. 05/31: Afebrile. Pretty weak but his appetite is improving. O2 saturations 92% on 8 L today. No chest pain. He is eating Chick-alina-A brought in by his family. 06/01: Afebrile. Little stronger. O2 saturations 96% on 8 L nasal cannula today. Denies chest pain shortness of breath is improved abdomen cough is minimal. WBC 19. He has been on antibiotics over 14 days will try off antibiotics as he is making significant clinical improvements. 06/02: Patient seen and examined. Discussed with RN. Chart reviewed. 06/03: Patient was seen and examined. Seemed more alert than yesterday. Discussed with RN. Chart was reviewed. Spoke to on phone about plan. 06/04: Patient was seen and examined and seemed more alert than yesterday. He had moved out of the bed and to his chair. On 4L O2 at 97% O2 sat. Discussed with RN. Chart reviewed. 06/05: Patient seen and examined. Discussed O2 status with RN and difficulties with standing and maintaining oxygenation. Chart reviewed. Currently on 4L O2. Patient awake and responsive. Vitals/I&O Vitals/I&O: Vital Signs Date Time Temp Pulse Resp B/P (MAP) Pulse Ox O2 Delivery O2 Flow Rate FiO2 06/05/21 11:00 98.5 70 20 121/68 (85) 98 Nasal Cannula 5.0 98.5 I & O 06/04/21 06/04/21 06/05/21 15:00 23:00 07:00 Intake Total 700 ml 300 ml Output Total 850 ml Balance 700 ml 300 ml -850 ml Physical Exam General: Alert, Oriented X3, Cooperative, No acute distress Heart: Regular rate, Normal S1, Normal S2 Abdomen: Normal bowel sounds, No tenderness Extremities: No clubbing, No edema Skin: No rashes, No breakdown Labs Labs: Laboratory Tests Test 06/05/21 05:55 White Blood Count 19.7 x10^3/uL (4.0-11.0) Red Blood Count 4.27 x10^6/uL (4.30-5.70) Hemoglobin 12.1 g/dL (13.0-17.5) Hematocrit 36.6 % (39.0-53.0) Mean Corpuscular Volume 86 fL (79-100) Mean Corpuscular Hemoglobin 28 pg (25-35) Mean Corpuscular Hemoglobin Concent 33 g/dL (31-37) Red Cell Distribution Width 14.4 % (11.5-14.5) Platelet Count 92 x10^3/uL (140-400) Neutrophils (%) (Auto) 91 % (31-73) Lymphocytes (%) (Auto) 3 % (24-48) Monocytes (%) (Auto) 5 % (0-9) Eosinophils (%) (Auto) 0 % (0-3) Basophils (%) (Auto) 0 % (0-3) Neutrophils # (Auto) 17.9 x10^3/uL (1.8-7.7) Lymphocytes # (Auto) 0.6 x10^3/uL (1.0-4.8) Monocytes # (Auto) 1.1 x10^3/uL (0.0-1.1) Eosinophils # (Auto) 0.0 x10^3/uL (0.0-0.7) Basophils # (Auto) 0.0 x10^3/uL (0.0-0.2) Sodium Level 137 mmol/L (136-145) Potassium Level 4.6 mmol/L (3.5-5.1) Chloride Level 104 mmol/L (98-107) Carbon Dioxide Level 25 mmol/L (21-32) Anion Gap 8 (6-14) Blood Urea Nitrogen 31 mg/dL (8-26) Creatinine 1.1 mg/dL (0.7-1.3) Estimated GFR (Cockcroft-Gault) 83.8 Glucose Level 140 mg/dL (70-99) Calcium Level 8.9 mg/dL (8.5-10.1) Review of Systems Review of Systems: no vomiting. no bleeding. Assessment and Plan Assessmemt and Plan Problems Medical Problems: (1) Hypoxia Status: Acute (2) Pneumonia due to COVID-19 virus Status: Acute Acute hypoxic respiratory failure COVID-19 pneumonia DARIANA due to vasomotor nephropathy, possible undiagnosed CKD Obesity class I Hypernatremia Plan: Hope to discharge when O2 requirement decreases Continue to titrate O2 while maintaining O2 sat greater than 92% Continue Lovenox for DVT prophylaxis Protonix while on steroids GI prophylaxis ADA diet Full code PT/OT Encourage PO intake Home meds Trend labs Comment Review of Relevant I have reviewed the following items fawn (where applicable) has been applied. Justifications for Admission Other Justification COVID-19 pneumonia DELTA QUIROGA III DO Jun 05, 2021 11:31
[2021-06-05 14:49] VITALS: BP 128/82
[2021-06-05] MEDS: AA 4.25 %/CALCIUM/LYTES/D5W 1,000 ML IV SCH (17:30)
[2021-06-05 19:00] VITALS: BP 123/78
[2021-06-05] MEDS: HYDROcodone/APAP 7.5/325MG 1 TAB TABLET PO PRN (20:55)
[2021-06-05] MEDS: TOPIRAMATE 100 MG TABLET. PO SCH (20:56)
[2021-06-05 23:00] VITALS: BP 112/66
[2021-06-06 03:00] VITALS: BP 113/72
[2021-06-06] MEDS: AA 4.25 %/CALCIUM/LYTES/D5W 1,000 ML IV SCH (03:09)
[2021-06-06] MEDS: PANTOPRAZOLE 40 MG TABLET.DR. PO SCH (05:04)
[2021-06-06] MEDS: HYDROcodone/APAP 7.5/325MG 1 TAB TABLET PO PRN ×2 (05:04→19:44)
[2021-06-06 05:49] LABS: RED BLOOD COUNT 4.07 x10^6/uL (4.30-5.70); WHITE BLOOD COUNT 24.4 x10^3/uL (4.0-11.0)
[2021-06-06 05:50] LABS: BASO # 0.2 x10^3/uL (0.0-0.2); BASO % 1 % (0-3); EOS % 0 % (0-3); HEMOGLOBIN 11.5 g/dL (13.0-17.5); LYMPH # 0.6 x10^3/uL (1.0-4.8); LYMPH % 3 % (24-48); MEAN CORPUSCULAR HEMOGLOBIN 28 pg (25-35); MEAN CORPUSCULAR HGB CONC 33 g/dL (31-37); MEAN CORPUSCULAR VOLUME 86 fL (79-100); MONO % 4 % (0-9); NEUT # 22.5 x10^3/uL (1.8-7.7); NEUT % 92 % (31-73); PLATELET COUNT 91 x10^3/uL (140-400); RED CELL DISTRIBUTION WIDTH 14.5 % (11.5-14.5)
[2021-06-06 06:02] LABS: CALCIUM 8.7 mg/dL (8.5-10.1); CREATININE 1.4 mg/dL (0.7-1.3); GFR 63.4; POTASSIUM 4.5 mmol/L (3.5-5.1)
[2021-06-06 07:00] VITALS: BP 121/68
[2021-06-06] MEDS: methylPREDNISolone SOD SUCC PF 40 MG/ML VIAL. IV SCH ×2 (08:12→20:02)
[2021-06-06] MEDS: ENOXAPARIN 40 MG/0.4 ML SYRINGE. SQ SCH (08:13)
[2021-06-06] MEDS: ASPIRIN CHEWABLE 81 MG TABLET. PO SCH (08:14)
[2021-06-06] MEDS: LACTOBACILLUS RHAMNOSUS GG 1 CAPSULE. PO SCH ×2 (08:23→20:02)
[2021-06-06] MEDS: ZINC SULFATE 220 MG CAPSULE. PO SCH (08:23)
[2021-06-06] MEDS: ASCORBIC ACID 1,000 MG TABLET PO SCH ×3 (08:24→20:02)
[2021-06-06] MEDS: SERTRALINE 50 MG TABLET. PO SCH (08:24)
[2021-06-06] MEDS: THIAMINE 100 MG TABLET. PO SCH (08:24)
[2021-06-06] MEDS: FAMOTIDINE 20 MG TABLET. PO SCH ×2 (08:24→20:02)
[2021-06-06] MEDS: ALLOPURINOL 100 MG TABLET. PO SCH ×2 (08:25→20:02)
--- NOTE | 2021-06-06 10:41 | PDOC ---
PULMONARY PROGRESS NOTES DATE: 06/06/21 TIME: 10:40 Subjective Patient was on 4 L nc sob better feeling better Vitals Vital Signs Date Time Temp Pulse Resp B/P (MAP) Pulse Ox O2 Delivery O2 Flow Rate FiO2 06/06/21 08:00 Nasal Cannula 2.5 06/06/21 07:00 98.0 72 18 121/68 (85) 96 98.0 Comments Visual exam done due to COVID-19. no distress nca t rrr no accessory muscle use No skin rash no leg edema. General: Alert, No acute distress Labs Laboratory Tests Test 06/05/21 05:55 06/06/21 05:30 06/06/21 08:04 White Blood Count 19.7 x10^3/uL (4.0-11.0) 24.4 x10^3/uL (4.0-11.0) Red Blood Count 4.27 x10^6/uL (4.30-5.70) 4.07 x10^6/uL (4.30-5.70) Hemoglobin 12.1 g/dL (13.0-17.5) 11.5 g/dL (13.0-17.5) Hematocrit 36.6 % (39.0-53.0) 35.0 % (39.0-53.0) Mean Corpuscular Volume 86 fL (79-100) 86 fL (79-100) Mean Corpuscular Hemoglobin 28 pg (25-35) 28 pg (25-35) Mean Corpuscular Hemoglobin Concent 33 g/dL (31-37) 33 g/dL (31-37) Red Cell Distribution Width 14.4 % (11.5-14.5) 14.5 % (11.5-14.5) Platelet Count 92 x10^3/uL (140-400) 91 x10^3/uL (140-400) Neutrophils (%) (Auto) 91 % (31-73) 92 % (31-73) Lymphocytes (%) (Auto) 3 % (24-48) 3 % (24-48) Monocytes (%) (Auto) 5 % (0-9) 4 % (0-9) Eosinophils (%) (Auto) 0 % (0-3) 0 % (0-3) Basophils (%) (Auto) 0 % (0-3) 1 % (0-3) Neutrophils # (Auto) 17.9 x10^3/uL (1.8-7.7) 22.5 x10^3/uL (1.8-7.7) Lymphocytes # (Auto) 0.6 x10^3/uL (1.0-4.8) 0.6 x10^3/uL (1.0-4.8) Monocytes # (Auto) 1.1 x10^3/uL (0.0-1.1) 1.0 x10^3/uL (0.0-1.1) Eosinophils # (Auto) 0.0 x10^3/uL (0.0-0.7) 0.0 x10^3/uL (0.0-0.7) Basophils # (Auto) 0.0 x10^3/uL (0.0-0.2) 0.2 x10^3/uL (0.0-0.2) Sodium Level 137 mmol/L (136-145) 133 mmol/L (136-145) Potassium Level 4.6 mmol/L (3.5-5.1) 4.5 mmol/L (3.5-5.1) Chloride Level 104 mmol/L (98-107) 100 mmol/L (98-107) Carbon Dioxide Level 25 mmol/L (21-32) 26 mmol/L (21-32) Anion Gap 8 (6-14) 7 (6-14) Blood Urea Nitrogen 31 mg/dL (8-26) 42 mg/dL (8-26) Creatinine 1.1 mg/dL (0.7-1.3) 1.4 mg/dL (0.7-1.3) Estimated GFR (Cockcroft-Gault) 83.8 63.4 Glucose Level 140 mg/dL (70-99) 141 mg/dL (70-99) Calcium Level 8.9 mg/dL (8.5-10.1) 8.7 mg/dL (8.5-10.1) Glucose (Fingerstick) 129 mg/dL (70-99) Laboratory Tests Test 06/06/21 05:30 06/06/21 08:04 White Blood Count 24.4 x10^3/uL (4.0-11.0) Red Blood Count 4.07 x10^6/uL (4.30-5.70) Hemoglobin 11.5 g/dL (13.0-17.5) Hematocrit 35.0 % (39.0-53.0) Mean Corpuscular Volume 86 fL (79-100) Mean Corpuscular Hemoglobin 28 pg (25-35) Mean Corpuscular Hemoglobin Concent 33 g/dL (31-37) Red Cell Distribution Width 14.5 % (11.5-14.5) Platelet Count 91 x10^3/uL (140-400) Neutrophils (%) (Auto) 92 % (31-73) Lymphocytes (%) (Auto) 3 % (24-48) Monocytes (%) (Auto) 4 % (0-9) Eosinophils (%) (Auto) 0 % (0-3) Basophils (%) (Auto) 1 % (0-3) Neutrophils # (Auto) 22.5 x10^3/uL (1.8-7.7) Lymphocytes # (Auto) 0.6 x10^3/uL (1.0-4.8) Monocytes # (Auto) 1.0 x10^3/uL (0.0-1.1) Eosinophils # (Auto) 0.0 x10^3/uL (0.0-0.7) Basophils # (Auto) 0.2 x10^3/uL (0.0-0.2) Sodium Level 133 mmol/L (136-145) Potassium Level 4.5 mmol/L (3.5-5.1) Chloride Level 100 mmol/L (98-107) Carbon Dioxide Level 26 mmol/L (21-32) Anion Gap 7 (6-14) Blood Urea Nitrogen 42 mg/dL (8-26) Creatinine 1.4 mg/dL (0.7-1.3) Estimated GFR (Cockcroft-Gault) 63.4 Glucose Level 141 mg/dL (70-99) Calcium Level 8.7 mg/dL (8.5-10.1) Glucose (Fingerstick) 129 mg/dL (70-99) Medications Active Scripts Medications Dose Route/Sig Max Daily Dose Days Date Category Hydrocodone-Acetamin 7.5-325 (Hydrocodone/Acetaminophen) 1 Each Tablet 1 Each PO Q6HRS PRN 05/18/21 Reported [percocet] Unknown Strength Unknown Dose 05/18/21 Reported [tramadol] Unknown Strength Unknown Dose 05/18/21 Reported Melatonin 10 Mg Capsule 1 Cap PO QHS 30 05/18/21 Reported Topiramate 50 Mg Tablet 3 Tab PO HS 30 05/18/21 Reported Zoloft (Sertraline Hcl) 50 Mg Tablet 1 Tab PO DAILY 05/18/21 Reported Amlodipine Besylate 10 Mg Tablet 10 Mg PO DAILY 05/18/21 Reported Allopurinol 100 Mg Tablet 1 Tab PO BID 05/18/21 Reported Tessalon Perle (Benzonatate) 100 Mg Capsule 1 Cap PO DAILY 05/18/21 Reported Proair Hfa Inhaler (Albuterol Sulfate) 8.5 Gm Hfa.aer.ad 2 Puff IH PRN Q4-6HRS PRN 21 05/18/21 Reported Aspirin 81 Mg Tab.chew 81 Mg PO DAILY 05/18/21 Reported Impression . 1. Acute hypoxic respiratory failure secondary to COVID-19 viral pneumonia./Acute lung injury/early ARDS. 2. Abnormal chest x-ray with bilateral patchy interstitial infiltrates consistent with COVID-19 viral pneumonia. 3. No significant tobacco history. 4. Acute kidney injury likely related to volume contraction. The patient has been having diarrhea. 5. Leukocytosis without any fever, likely due to steroids. Plan . RECOMMENDATIONS: 1. Continue 02 titrate fio2 to keep sat 90%. Currently down to 3 L nasal cannula. IS to use multiple times an hr 2. Continue with remdesivir full course. 3. Taper prednisone. 4. Lovenox for deep venous thrombosis prophylaxis. 5. Off antibiotics 6. Monitor white cell count and follow for any new fever. 7. He is a full code. 6-minute walk test on discharge per PCP. Will be available for any further recommendations. Will sign off for now STACY EASON MD Jun 06, 2021 10:41
--- NOTE | 2021-06-06 10:58 | PDOC ---
[employer] PROGRESS NOTE Date of Service DOS: DATE: 06/06/21 TIME: 10:50 Chief Complaint Chief Complaint CC: Acute hypoxic respiratory failure COVID-19 pneumonia DARIANA due to vasomotor nephropathy, possible undiagnosed CKD Obesity class I Hypernatremia History of Present Illness History of Present Illness Mr Parson is a 55 year old male w/ PMHx significant for history of CAD status post stenting who present to ER with a history of 2 weeks cough and trouble breathing. Patient was not vaccinated for COVID-19. Patient was diagnosed with COVID-19 on , he was seen at the [facility], was tested positive for COVID-19. Patient came in today because of worsening trouble breathing. His oxygen saturation was 87% on room air. Patient denies history of diabetic, denies history of smoking denies history of COPD, not on oxygen at home. 05/20: No acute events overnight. Patient now requiring 8 L nasal cannula to saturate 97%. Patient is more short of breath. Remdesivir initiated. No concerns nursing at this time. 05/21: On 6 L nasal cannula saturating well. Still feeling more fatigued and just generalized illness. Some new onset upper abdominal pain, will start Pepcid and as needed GI cocktail. 05/22: He was on 4 L nasal cannula maintaining good saturations. Somewhat improved but overall feels fatigued still. Continue Covid protocol. Pulmonary consulted. 05/23: No OE. Saturating 98% on 8 L nasal cannula. Pulmonology was consulted and recommended to continue current management for Covid. Currently on IV Remdesivir. 05/24: Patient saturating 98% on 10 L nasal cannula. Still short of breath during speaking. CT abdomen pelvis ordered today to evaluate lesion on the kidney. Patient still does not know what is the cause of his renal failure. No history of hypertension or diabetes. Nephrology has been consulted. 05/25: No acute events overnight. Patient saturating 95% on 15 L nonrebreather. Switch IV fluids to D5W at 75 cc/h. 05/26: Afebrile. Vomited after paroxysmal coughing this morning. His mood is a little bit depressed. O2 saturation 96% on 15 L nonrebreather. 05/27: CT abdomen pelvis with no acute abdominal findings. Feel most nauseated today, vomiting after coughing. Feels weak and tired on 15 L. 05/28: Afebrile. No further vomiting. Still very weak requiring 15 L non-rebre ather. PICC line placed for IV access 05/29: Afebrile. Still feeling weak. Now on 12 L nasal cannula oxygen with O2 saturations 91 to 94%. PICC functioning well. He is asking me to go home. K 5.3 05/30: Afebrile. Still profoundly weak. Asking if he can go home on 12 L of oxygen which is currently requiring with O2 saturations 91%. No chest pain, still very short of breath. And dry nose. 05/31: Afebrile. Pretty weak but his appetite is improving. O2 saturations 92% on 8 L today. No chest pain. He is eating Chick-al[employer]-A brought in by his family. 06/01: Afebrile. Little stronger. O2 saturations 96% on 8 L nasal cannula today. Denies chest pain shortness of breath is improved abdomen cough is minimal. WBC 19. He has been on antibiotics over 14 days will try off antibiotics as he is making significant clinical improvements. 06/02: Patient seen and examined. Discussed with RN. Chart reviewed. 06/03: Patient was seen and examined. Seemed more alert than yesterday. Discussed with RN. Chart was reviewed. Spoke to on phone about plan. 06/04: Patient was seen and examined and seemed more alert than yesterday. He had moved out of the bed and to his chair. On 4L O2 at 97% O2 sat. Discussed with RN. Chart reviewed. 06/05: Patient seen and examined. Discussed O2 status with RN and difficulties with standing and maintaining oxygenation. Chart reviewed. Currently on 4L O2. Patient awake and responsive. 06/06: Patient seen and examined. Noted to be more alert and talkative than yesterday. He said he's feeling better than yesterday. Currently on 2.5L oxygen. Discussed yesterday's 6 min walk test and today's walk test with RN. Discussed sending patient home on PO antibiotics for increasing WBC count with RN. Chart reviewed. Vitals/I&O Vitals/I&O: Vital Signs Date Time Temp Pulse Resp B/P (MAP) Pulse Ox O2 Delivery O2 Flow Rate FiO2 06/06/21 08:00 Nasal Cannula 2.5 06/06/21 07:00 98.0 72 18 121/68 (85) 96 98.0 I & O 06/05/21 06/05/21 06/06/21 15:00 23:00 07:00 Intake Total 540 ml 480 ml 0 ml Output Total 500 ml 350 ml Balance 540 ml -20 ml -350 ml Physical Exam General: Alert, Oriented X3, Cooperative, No acute distress Heart: Regular rate, Normal S1, Normal S2 Abdomen: Normal bowel sounds, No tenderness Extremities: No clubbing, No edema Skin: No rashes, No breakdown Labs Labs: Laboratory Tests Test 06/06/21 05:30 06/06/21 08:04 White Blood Count 24.4 x10^3/uL (4.0-11.0) Red Blood Count 4.07 x10^6/uL (4.30-5.70) Hemoglobin 11.5 g/dL (13.0-17.5) Hematocrit 35.0 % (39.0-53.0) Mean Corpuscular Volume 86 fL (79-100) Mean Corpuscular Hemoglobin 28 pg (25-35) Mean Corpuscular Hemoglobin Concent 33 g/dL (31-37) Red Cell Distribution Width 14.5 % (11.5-14.5) Platelet Count 91 x10^3/uL (140-400) Neutrophils (%) (Auto) 92 % (31-73) Lymphocytes (%) (Auto) 3 % (24-48) Monocytes (%) (Auto) 4 % (0-9) Eosinophils (%) (Auto) 0 % (0-3) Basophils (%) (Auto) 1 % (0-3) Neutrophils # (Auto) 22.5 x10^3/uL (1.8-7.7) Lymphocytes # (Auto) 0.6 x10^3/uL (1.0-4.8) Monocytes # (Auto) 1.0 x10^3/uL (0.0-1.1) Eosinophils # (Auto) 0.0 x10^3/uL (0.0-0.7) Basophils # (Auto) 0.2 x10^3/uL (0.0-0.2) Sodium Level 133 mmol/L (136-145) Potassium Level 4.5 mmol/L (3.5-5.1) Chloride Level 100 mmol/L (98-107) Carbon Dioxide Level 26 mmol/L (21-32) Anion Gap 7 (6-14) Blood Urea Nitrogen 42 mg/dL (8-26) Creatinine 1.4 mg/dL (0.7-1.3) Estimated GFR (Cockcroft-Gault) 63.4 Glucose Level 141 mg/dL (70-99) Calcium Level 8.7 mg/dL (8.5-10.1) Glucose (Fingerstick) 129 mg/dL (70-99) Review of Systems Review of Systems: no vomiting. no nausea. no dizziness. Assessment and Plan Assessmemt and Plan Problems Medical Problems: (1) Hypoxia Status: Acute (2) Pneumonia due to COVID-19 virus Status: Acute Acute hypoxic respiratory failure COVID-19 pneumonia DARIANA due to vasomotor nephropathy, possible undiagnosed CKD Obesity class I Hypernatremia Plan: Awaiting results of today's 6 min walk test Probable discharge today if 6 min walk test goes well Continue Lovenox for DVT prophylaxis Protonix while on steroids GI prophylaxis ADA diet Full code PT/OT Encourage PO intake Home meds Trend labs Comment Review of Relevant I have reviewed the following items fanw (where applicable) has been applied. Medications: Current Medications Medications (Trade) Dose Ordered Sig/Kerri Route PRN Reason Start Time Stop Time Status Last Admin Dose Admin Amino Acids/ Electrolytes/ Dextrose 1,000 ml @ 80 mls/hr [id number] IV 06/05/21 14:45 06/06/21 03:09 Justifications for Admission Other Justification COVID-19 pneumonia DELTA QUIROGA III DO Jun 06, 2021 10:58
[2021-06-06 11:00] VITALS: BP 112/67
--- NOTE | 2021-06-06 12:11 | SNU/HH DC ---
DISCHARGE WITH HOME HEALTH DISCHARGE INFORMATION: Final Diagnosis: Problems Medical Problems: (1) Hypoxia Status: Acute (2) Pneumonia due to COVID-19 virus Status: Acute Condition on Discharge: Stable CODE STATUS: Code Status: Full HOME HEALTH: Face to Face: I certify this patient is under my care and that I, or a nurse practitioner or physician's bacteriology research assistant working with me, had a face to face encounter that meets the physician face to face encounter requirements with this patient on []. Medical Complications: Other (Resolving COVID-19) Detention For: Assess & Educate Safety RN For Eval/Treatment: Yes Physical Therapy For: Evalulation/Treatment Occupational Therapy For: Evaluation/Treatment Home Health Aide For: Self-care ENVIRONMENTAL TECHNICIAN For: Community Resources Pt Meets Homebound Status: Poor coordination w/ amb. POST DISCHARGE ORDERS: DIET AFTER DISCHARGE: Cardiac CERTIFICATION STATEMENT: Certification Statement: Certification Statement: Based on the above finding, I certify that this patient is confined to the home and needs intermittent alf care, physical therapy and/or speech therapy, or continues to need occupational therapy.~ This patient is under my care, and I have initiated the establishment of the plan of care.~ This patient will be followed by myself or a community physician who will periodically review the plan of care. Home Meds Reported Medications Hydrocodone/Acetaminophen (Hydrocodone-Acetamin 7.5-325) 1 Each Tablet, 1 EACH PO Q6HRS PRN for PAIN, TAB 05/18/21 [percocet] Unknown Strength No Conflict Check 05/18/21 [tramadol] Unknown Strength No Conflict Check, for pain 05/18/21 Melatonin (MELATONIN) 10 Mg Capsule, 1 CAP PO QHS for sleep for 30 Days, #30 CAP 0 Refills 05/18/21 Topiramate (TOPIRAMATE) 50 Mg Tablet, 3 TAB PO HS for headache for 30 Days, #90 TAB 0 Refills 05/18/21 Sertraline Hcl (ZOLOFT) 50 Mg Tablet, 1 TAB PO DAILY for mood swings, #30 TAB 2 Refills 05/18/21 Amlodipine Besylate (AMLODIPINE BESYLATE) 10 Mg Tablet, 10 MG PO DAILY for BP, TAB 05/18/21 Allopurinol (ALLOPURINOL) 100 Mg Tablet, 1 TAB PO BID for gout, #30 TAB 5 Refills 05/18/21 Benzonatate (TESSALON PERLE) 100 Mg Capsule, 1 CAP PO DAILY for cough, #21 CAP 05/18/21 Albuterol Sulfate (PROAIR HFA INHALER) 8.5 Gm Hfa.aer.ad, 2 PUFF IH PRN Q4-6HRS PRN for wheezing for 21 Days, #1 INHALER 0 Refills 05/18/21 Aspirin (ASPIRIN) 81 Mg Tab.chew, 81 MG PO DAILY for "heart", TAB.CHEW 05/18/21 DELTA QUIROGA III DO Jun 06, 2021 12:11
--- NOTE | 2021-06-06 13:09 | NUR ---
SW following. Discussed with RN, pt unable to pass 6 minute walk again today. Dropped into low 70s on 3L oxygen, and is taking a long time to recover after. [facility] minute walk will be repeated on Wednesday. PATRICE will continue to follow.
[2021-06-06] MEDS: AMOXICILLIN/K CLAV 875/125MG TABLET. PO SCH ×2 (14:38→20:02)
[2021-06-06 15:00] VITALS: BP 114/66
[2021-06-06 19:00] VITALS: BP 114/87
[2021-06-06] MEDS: TOPIRAMATE 100 MG TABLET. PO SCH (20:02)
[2021-06-06 23:50] VITALS: BP 119/71
[2021-06-07] VITALS (7 sets, daily range): BP systolic 111–133; BP diastolic 63–85
[2021-06-07] MEDS: HYDROcodone/APAP 7.5/325MG 1 TAB TABLET PO PRN ×2 (05:08→20:47)
[2021-06-07] MEDS: PANTOPRAZOLE 40 MG TABLET.DR. PO SCH (05:08)
[2021-06-07 05:31] LABS: BASO # 0.1 x10^3/uL (0.0-0.2); BASO % 0 % (0-3); EOS % 0 % (0-3); HEMATOCRIT 33.4 % (39.0-53.0); LYMPH # 0.5 x10^3/uL (1.0-4.8); LYMPH % 3 % (24-48); MEAN CORPUSCULAR HEMOGLOBIN 28 pg (25-35); MEAN CORPUSCULAR HGB CONC 33 g/dL (31-37); MEAN CORPUSCULAR VOLUME 86 fL (79-100); MONO # 0.9 x10^3/uL (0.0-1.1); MONO % 5 % (0-9); NEUT # 18.9 x10^3/uL (1.8-7.7); NEUT % 93 % (31-73); PLATELET COUNT 85 x10^3/uL (140-400); RED BLOOD COUNT 3.89 x10^6/uL (4.30-5.70); RED CELL DISTRIBUTION WIDTH 14.3 % (11.5-14.5); WHITE BLOOD COUNT 20.4 x10^3/uL (4.0-11.0)
[2021-06-07 05:41] LABS: CALCIUM 8.6 mg/dL (8.5-10.1); GFR 93.5; POTASSIUM 4.6 mmol/L (3.5-5.1)
[2021-06-07] MEDS: LIDO:MAALOX 1:1 20 ML SINGLE DOSE. PO PRN ×2 (08:02→20:45)
[2021-06-07] MEDS: ASCORBIC ACID 1,000 MG TABLET PO SCH ×3 (08:02→20:46)
[2021-06-07] MEDS: ENOXAPARIN 40 MG/0.4 ML SYRINGE. SQ SCH (08:02)
[2021-06-07] MEDS: AMOXICILLIN/K CLAV 875/125MG TABLET. PO SCH ×2 (08:03→20:46)
[2021-06-07] MEDS: ALLOPURINOL 100 MG TABLET. PO SCH ×2 (08:03→20:45)
[2021-06-07] MEDS: SERTRALINE 50 MG TABLET. PO SCH (08:03)
[2021-06-07] MEDS: FAMOTIDINE 20 MG TABLET. PO SCH ×2 (08:03→20:45)
[2021-06-07] MEDS: methylPREDNISolone SOD SUCC PF 40 MG/ML VIAL. IV SCH ×2 (08:03→20:46)
[2021-06-07] MEDS: LACTOBACILLUS RHAMNOSUS GG 1 CAPSULE. PO SCH ×2 (08:03→20:46)
[2021-06-07] MEDS: ZINC SULFATE 220 MG CAPSULE. PO SCH (08:04)
[2021-06-07] MEDS: ASPIRIN CHEWABLE 81 MG TABLET. PO SCH (08:04)
[2021-06-07] MEDS: THIAMINE 100 MG TABLET. PO SCH (08:04)
--- NOTE | 2021-06-07 11:32 | PDOC ---
[employer] PROGRESS NOTE Date of Service DOS: DATE: 06/07/21 TIME: : Chief Complaint Chief Complaint CC: Acute hypoxic respiratory failure COVID-19 pneumonia DARIANA due to vasomotor nephropathy, possible undiagnosed CKD Obesity class I Hypernatremia History of Present Illness History of Present Illness Mr Parson is a 55 year old male w/ PMHx significant for history of CAD status post stenting who present to ER with a history of 2 weeks cough and trouble breathing. Patient was not vaccinated for COVID-19. Patient was diagnosed with COVID-19 on , he [place] seen [place] [facility], was tested positive for COVID-19. Patient came in today because of worsening trouble breathing. His oxygen saturation was 87% on room air. Patient denies history of diabetic, denies history of smoking denies history of COPD, not on oxygen at home. 05/20: No acute events overnight. Patient now requiring 8 L nasal cannula to saturate 97%. Patient is more short of breath. Remdesivir initiated. No concerns nursing at this time. 05/21: On 6 L nasal cannula saturating well. Still feeling more fatigued and just generalized illness. Some new onset upper abdominal pain, will start Pepcid and as needed GI cocktail. 05/22: He was on 4 L nasal cannula maintaining good saturations. Somewhat improved but overall feels fatigued still. Continue Covid protocol. Pulmonary consulted. 05/23: No OE. Saturating 98% on 8 L nasal cannula. Pulmonology was consulted and recommended to continue current management for Covid. Currently on IV Remdesivir. 05/24: Patient saturating 98% on 10 L nasal cannula. Still short of breath during speaking. CT abdomen pelvis ordered today to evaluate lesion on the kidney. Patient still does not know what is the cause of his renal failure. No history of hypertension or diabetes. Nephrology has been consulted. 05/25: No acute events overnight. Patient saturating 95% on 15 L nonrebreather. Switch IV fluids to D5W at 75 cc/h. 05/26: Afebrile. Vomited after paroxysmal coughing this morning. His mood is a little bit depressed. O2 saturation 96% on 15 L nonrebreather. 05/27: CT abdomen pelvis with no acute abdominal findings. Feel most nauseated today, vomiting after coughing. Feels weak and tired on 15 L. 05/28: Afebrile. No further vomiting. Still very weak requiring 15 L non-rebre ather. PICC line placed for IV access 05/29: Afebrile. Still feeling weak. Now on 12 L nasal cannula oxygen with O2 saturations 91 to 94%. PICC functioning well. He is asking me to go home. K 5.3 05/30: Afebrile. Still profoundly weak. Asking if he can go home on 12 L of oxygen which is currently requiring with O2 saturations 91%. No chest pain, still very short of breath. And dry nose. 05/31: Afebrile. Pretty weak but his appetite is improving. O2 saturations 92% on 8 L today. No chest pain. He is eating Chick-al[employer]-A brought in by his family. 06/01: Afebrile. Little stronger. O2 saturations 96% on 8 L nasal cannula today. Denies chest pain shortness of breath is improved abdomen cough is minimal. WBC 19. He has been on antibiotics over 14 days will try off antibiotics as he is making significant clinical improvements. 06/02: Patient seen and examined. Discussed with RN. Chart reviewed. 06/03: Patient was seen and examined. Seemed more alert than yesterday. Discussed with RN. Chart was reviewed. Spoke to on phone about plan. 06/04: Patient was seen and examined and seemed more alert than yesterday. He had moved out of the bed and to his chair. On 4L O2 at 97% O2 sat. Discussed with RN. Chart reviewed. 06/05: Patient seen and examined. Discussed O2 status with RN and difficulties with standing and maintaining oxygenation. Chart reviewed. Currently on 4L O2. Patient awake and responsive. 06/06: Patient seen and examined. Noted to be more alert and talkative than yesterday. He said he's feeling better than yesterday. Currently on 2.5L oxygen. Discussed yesterday's 6 min walk test and today's walk test with RN. Discussed sending patient home on PO antibiotics for increasing WBC count with RN. Chart reviewed. 06/07: Patient seen and examined. Awake and alert. Currently on 2.5L O2 with 98% O2 saturation. Patient states he would like to try the 6 min walk test again today. Discussed with RN. Chart reviewed. Vitals/I&O Vitals/I&O: Vital Signs Date Time Temp Pulse Resp B/P (MAP) Pulse Ox O2 Delivery O2 Flow Rate FiO2 06/07/21 08:03 79 121/72 06/07/21 08:00 Nasal Cannula 4.0 06/07/21 07:10 97.3 18 96 97.3 I & O 06/06/21 06/06/21 06/07/21 15:00 23:00 07:00 Intake Total 120 ml 640 ml 400 ml Output Total 600 ml 700 ml 700 ml Balance -480 ml -60 ml -300 ml Physical Exam General: Alert, Oriented X3, Cooperative, No acute distress Heart: Regular rate, Normal S1, Normal S2 Lungs: Clear Abdomen: Normal bowel sounds, No tenderness Extremities: No clubbing, No edema Skin: No rashes, No breakdown Labs Labs: Laboratory Tests Test 06/07/21 05:15 White Blood Count 20.4 x10^3/uL (4.0-11.0) Red Blood Count 3.89 x10^6/uL (4.30-5.70) Hemoglobin 11.0 g/dL (13.0-17.5) Hematocrit 33.4 % (39.0-53.0) Mean Corpuscular Volume 86 fL (79-100) Mean Corpuscular Hemoglobin 28 pg (25-35) Mean Corpuscular Hemoglobin Concent 33 g/dL (31-37) Red Cell Distribution Width 14.3 % (11.5-14.5) Platelet Count 85 x10^3/uL (140-400) Neutrophils (%) (Auto) 93 % (31-73) Lymphocytes (%) (Auto) 3 % (24-48) Monocytes (%) (Auto) 5 % (0-9) Eosinophils (%) (Auto) 0 % (0-3) Basophils (%) (Auto) 0 % (0-3) Neutrophils # (Auto) 18.9 x10^3/uL (1.8-7.7) Lymphocytes # (Auto) 0.5 x10^3/uL (1.0-4.8) Monocytes # (Auto) 0.9 x10^3/uL (0.0-1.1) Eosinophils # (Auto) 0.0 x10^3/uL (0.0-0.7) Basophils # (Auto) 0.1 x10^3/uL (0.0-0.2) Sodium Level 134 mmol/L (136-145) Potassium Level 4.6 mmol/L (3.5-5.1) Chloride Level 101 mmol/L (98-107) Carbon Dioxide Level 29 mmol/L (21-32) Anion Gap 4 (6-14) Blood Urea Nitrogen 35 mg/dL (8-26) Creatinine 1.0 mg/dL (0.7-1.3) Estimated GFR (Cockcroft-Gault) 93.5 Glucose Level 114 mg/dL (70-99) Calcium Level 8.6 mg/dL (8.5-10.1) Review of Systems Review of Systems: no bleeding. no vision changes. Assessment and Plan Assessmemt and Plan Problems Medical Problems: (1) Hypoxia Status: Acute (2) Pneumonia due to COVID-19 virus Status: Acute Acute hypoxic respiratory failure COVID-19 pneumonia DARIANA due to vasomotor nephropathy, possible undiagnosed CKD Obesity class I Hypernatremia Plan: Awaiting results of today's 6 min walk test Probable discharge today if 6 min walk test goes well Continue Lovenox for DVT prophylaxis Protonix while on steroids GI prophylaxis ADA diet Full code PT/OT Encourage PO intake Home meds Trend labs Comment Review of Relevant I have reviewed the following items fawn (where applicable) has been applied. Medications: Current Medications Medications (Trade) Dose Ordered Sig/Kerri Route PRN Reason Start Time Stop Time Status Last Admin Dose Admin Amoxicillin/ Clavulanate Potassium (Augmentin 875/ 125mg) 1 tab BID PO 06/06/21 14:00 06/07/21 08:03 Justifications for Admission Other Justification COVID-19 pneumonia DELTA QUIROGA III DO Jun 07, 2021 11:32
[2021-06-07] MEDS: TOPIRAMATE 100 MG TABLET. PO SCH (20:45)
[2021-06-07] MEDS: SENNOSIDES 8.6 MG TABLET PO PRN (20:45)
[2021-06-08 03:46] VITALS: BP 121/74
[2021-06-08] MEDS: PANTOPRAZOLE 40 MG TABLET.DR. PO SCH (05:10)
[2021-06-08 06:36] LABS: CALCIUM 8.7 mg/dL (8.5-10.1); CREATININE 1.1 mg/dL (0.7-1.3); GFR 83.8; POTASSIUM 4.9 mmol/L (3.5-5.1)
[2021-06-08 06:37] LABS: BASO # 0.1 x10^3/uL (0.0-0.2); BASO % 0 % (0-3); EOS % 0 % (0-3); HEMATOCRIT 30.7 % (39.0-53.0); HEMOGLOBIN 10.2 g/dL (13.0-17.5); LYMPH # 0.4 x10^3/uL (1.0-4.8); LYMPH % 2 % (24-48); MEAN CORPUSCULAR HEMOGLOBIN 28 pg (25-35); MEAN CORPUSCULAR HGB CONC 33 g/dL (31-37); MEAN CORPUSCULAR VOLUME 85 fL (79-100); MONO # 0.6 x10^3/uL (0.0-1.1); MONO % 3 % (0-9); NEUT # 19.3 x10^3/uL (1.8-7.7); NEUT % 94 % (31-73); PLATELET COUNT 76 x10^3/uL (140-400); RED BLOOD COUNT 3.59 x10^6/uL (4.30-5.70); RED CELL DISTRIBUTION WIDTH 14.1 % (11.5-14.5); WHITE BLOOD COUNT 20.5 x10^3/uL (4.0-11.0)
[2021-06-08 07:00] VITALS: BP 113/70
[2021-06-08] MEDS: ENOXAPARIN 40 MG/0.4 ML SYRINGE. SQ SCH (08:04)
[2021-06-08] MEDS: THIAMINE 100 MG TABLET. PO SCH (08:04)
[2021-06-08] MEDS: SERTRALINE 50 MG TABLET. PO SCH (08:05)
[2021-06-08] MEDS: ASCORBIC ACID 1,000 MG TABLET PO SCH ×3 (08:05→20:42)
[2021-06-08] MEDS: ALLOPURINOL 100 MG TABLET. PO SCH ×2 (08:05→20:43)
[2021-06-08] MEDS: ASPIRIN CHEWABLE 81 MG TABLET. PO SCH (08:05)
[2021-06-08] MEDS: AMOXICILLIN/K CLAV 875/125MG TABLET. PO SCH ×2 (08:05→20:42)
[2021-06-08] MEDS: FAMOTIDINE 20 MG TABLET. PO SCH ×2 (08:05→20:42)
[2021-06-08] MEDS: ZINC SULFATE 220 MG CAPSULE. PO SCH (08:05)
[2021-06-08] MEDS: LACTOBACILLUS RHAMNOSUS GG 1 CAPSULE. PO SCH ×2 (08:05→20:42)
[2021-06-08] MEDS: methylPREDNISolone SOD SUCC PF 40 MG/ML VIAL. IV SCH ×2 (08:06→20:43)
[2021-06-08 11:00] VITALS: BP 119/64
--- NOTE | 2021-06-08 11:36 | PDOC ---
[employer] PROGRESS NOTE Date of Service DOS: DATE: 06/08/21 TIME: 11:31 Chief Complaint Chief Complaint Acute hypoxic respiratory failure COVID-19 pneumonia Mild proteinuria Hypernatremia Resolving DARIANA History of Present Illness History of Present Illness Mr Parson is a 55 year old male w/ PMHx significant for history of CAD status post stenting who present to ER with a history of 2 weeks cough and trouble breathing. Patient was not vaccinated for COVID-19. Patient was diagnosed with COVID-19 on , he was seen at the [place], was tested positive for COVID-19. Patient came in today because of worsening trouble breathing. His oxygen satura tion was 87% on room air. Patient denies history of diabetic, denies history of smoking denies history of COPD, not on oxygen at home. 05/20: No acute events overnight. Patient now requiring 8 L nasal cannula to saturate 97%. Patient is more short of breath. Remdesivir initiated. No concerns nursing at this time. 05/21: On 6 L nasal cannula saturating well. Still feeling more fatigued and just generalized illness. Some new onset upper abdominal pain, will start Pepcid and as needed GI cocktail. 05/22: He was on 4 L nasal cannula maintaining good saturations. Somewhat improved but overall feels fatigued still. Continue Covid protocol. Pulmonary consulted. 05/23: No OE. Saturating 98% on 8 L nasal cannula. Pulmonology was consulted and recommended to continue current management for Covid. Currently on IV Remdesivir. 05/24: Patient saturating 98% on 10 L nasal cannula. Still short of breath during speaking. CT abdomen pelvis ordered today to evaluate lesion on the kidney. Patient still does not know what is the cause of his renal failure. No history of hypertension or diabetes. Nephrology has been consulted. 05/25: No acute events overnight. Patient saturating 95% on 15 L nonrebreather. Switch IV fluids to D5W at 75 cc/h. 05/26: Afebrile. Vomited after paroxysmal coughing this morning. His mood is a little bit depressed. O2 saturation 96% on 15 L nonrebreather. 05/27: CT abdomen pelvis with no acute abdominal findings. Feel most nauseated today, vomiting after coughing. Feels weak and tired on 15 L. 05/28: Afebrile. No further vomiting. Still very weak requiring 15 L non- rebreather. PICC line placed for IV access 05/29: Afebrile. Still feeling weak. Now on 12 L nasal cannula oxygen with O2 saturations 91 to 94%. PICC functioning well. He is asking me to go home. K 5.3 05/30: Afebrile. Still profoundly weak. Asking if he can go home on 12 L of oxygen which is currently requiring with O2 saturations 91%. No chest pain, still very short of breath. And dry nose. 05/31: Afebrile. Pretty weak but his appetite is improving. O2 saturations 92% on 8 L today. No chest pain. He is eating [employer]al[employer] brought in by his family. 06/01: Afebrile. Little stronger. O2 saturations 96% on 8 L nasal cannula today. Denies chest pain shortness of breath is improved abdomen cough is minimal. WBC 19. He has been on antibiotics over 14 days will try off antibiotics as he is making significant clinical improvements. 06/02: Patient seen and examined. Discussed with RN. Chart reviewed. 06/03: Patient was seen and examined. Seemed more alert than yesterday. Discussed with RN. Chart was reviewed. Spoke to on phone about plan. 06/04: Patient was seen and examined and seemed more alert than yesterday. He had moved out of the bed and to his chair. On 4L O2 at 97% O2 sat. Discussed with RN. Chart reviewed. 06/05: Patient seen and examined. Discussed O2 status with RN and difficulties with standing and maintaining oxygenation. Chart reviewed. Currently on 4L O2. Patient awake and responsive. 06/06: Patient seen and examined. Noted to be more alert and talkative than yesterday. He said he's feeling better than yesterday. Currently on 2.5L oxygen. Discussed yesterday's 6 min walk test and today's walk test with RN. Discussed sending patient home on PO antibiotics for increasing WBC count with RN. Chart reviewed. 06/07: Patient seen and examined. Awake and alert. Currently on 2.5L O2 with 98% O2 saturation. Patient states he would like to try the 6 min walk test again today. Discussed with RN. Chart reviewed. 06/08: Patient seen and examined. He said he was feeling alright and was not having any pain with breathing. Currently on 2L of O2. Discussed plans for 6 min walk test on Wednesday with RN. Chart reviewed. Vitals/I&O Vitals/I&O: Vital Signs Date Time Temp Pulse Resp B/P (MAP) Pulse Ox O2 Delivery O2 Flow Rate FiO2 06/08/21 11:00 98.1 78 22 119/64 (82) 96 Nasal Cannula 2.0 98.1 I & O 06/07/21 06/07/21 06/08/21 15:00 23:00 07:00 Intake Total 400 ml 490 ml 880 ml Output Total 900 ml 1250 ml Balance 400 ml -410 ml -370 ml Physical Exam General: Alert, Oriented X3, Cooperative, No acute distress Heart: Regular rate, Normal S1, Normal S2 Lungs: Clear Abdomen: Normal bowel sounds, No tenderness Extremities: No clubbing, No edema Skin: No rashes, No breakdown Labs Labs: Laboratory Tests Test 06/08/21 06:15 White Blood Count 20.5 x10^3/uL (4.0-11.0) Red Blood Count 3.59 x10^6/uL (4.30-5.70) Hemoglobin 10.2 g/dL (13.0-17.5) Hematocrit 30.7 % (39.0-53.0) Mean Corpuscular Volume 85 fL (79-100) Mean Corpuscular Hemoglobin 28 pg (25-35) Mean Corpuscular Hemoglobin Concent 33 g/dL (31-37) Red Cell Distribution Width 14.1 % (11.5-14.5) Platelet Count 76 x10^3/uL (140-400) Neutrophils (%) (Auto) 94 % (31-73) Lymphocytes (%) (Auto) 2 % (24-48) Monocytes (%) (Auto) 3 % (0-9) Eosinophils (%) (Auto) 0 % (0-3) Basophils (%) (Auto) 0 % (0-3) Neutrophils # (Auto) 19.3 x10^3/uL (1.8-7.7) Lymphocytes # (Auto) 0.4 x10^3/uL (1.0-4.8) Monocytes # (Auto) 0.6 x10^3/uL (0.0-1.1) Eosinophils # (Auto) 0.0 x10^3/uL (0.0-0.7) Basophils # (Auto) 0.1 x10^3/uL (0.0-0.2) Sodium Level 136 mmol/L (136-145) Potassium Level 4.9 mmol/L (3.5-5.1) Chloride Level 103 mmol/L (98-107) Carbon Dioxide Level 28 mmol/L (21-32) Anion Gap 5 (6-14) Blood Urea Nitrogen 30 mg/dL (8-26) Creatinine 1.1 mg/dL (0.7-1.3) Estimated GFR (Cockcroft-Gault) 83.8 Glucose Level 122 mg/dL (70-99) Calcium Level 8.7 mg/dL (8.5-10.1) Review of Systems Review of Systems: no bleeding. no changes in vision. Assessment and Plan Assessmemt and Plan Problems Medical Problems: (1) Hypoxia Status: Acute (2) Pneumonia due to COVID-19 virus Status: Acute Acute hypoxic respiratory failure COVID-19 pneumonia resolving DARIANA due to vasomotor nephropathy, possible undiagnosed CKD Hypernatremia Probable depression Mild proteinuria Plan: We are repeating his 6-minute walk Wednesday For now continue respiratory isolation We have him on p.o. Augmentin Continue vitamins As needed guaifenesin DVT prophylaxis Home meds O2 per nasal cannula Steroids GI prophylaxis Trend labs Encourage p.o. intake PT OT Appreciate subspecialist input Discharge once his O2 requirements are resolving Comment Review of Relevant I have reviewed the following items fawn (where applicable) has been applied. Justifications for Admission Other Justification COVID-19 pneumonia DELTA QUIROGA III DO Jun 08, 2021 11:36
[2021-06-08 15:00] VITALS: BP 127/65
[2021-06-08 19:00] VITALS: BP 127/73
[2021-06-08] MEDS: HYDROcodone/APAP 7.5/325MG 1 TAB TABLET PO PRN (20:42)
[2021-06-08] MEDS: TOPIRAMATE 100 MG TABLET. PO SCH (20:59)
[2021-06-08 22:50] VITALS: BP 132/70
[2021-06-09 03:00] VITALS: BP 128/80
[2021-06-09] MEDS: PANTOPRAZOLE 40 MG TABLET.DR. PO SCH (05:11)
[2021-06-09 05:54] LABS: BASO # 0.1 x10^3/uL (0.0-0.2); BASO % 0 % (0-3); EOS % 0 % (0-3); HEMATOCRIT 31.8 % (39.0-53.0); HEMOGLOBIN 10.4 g/dL (13.0-17.5); LYMPH # 0.3 x10^3/uL (1.0-4.8); LYMPH % 1 % (24-48); MEAN CORPUSCULAR HEMOGLOBIN 28 pg (25-35); MEAN CORPUSCULAR HGB CONC 33 g/dL (31-37); MEAN CORPUSCULAR VOLUME 87 fL (79-100); MONO # 0.5 x10^3/uL (0.0-1.1); MONO % 2 % (0-9); NEUT % 96 % (31-73); PLATELET COUNT 76 x10^3/uL (140-400); RED BLOOD COUNT 3.68 x10^6/uL (4.30-5.70); RED CELL DISTRIBUTION WIDTH 14.6 % (11.5-14.5); WHITE BLOOD COUNT 22.9 x10^3/uL (4.0-11.0)
[2021-06-09 06:13] LABS: CALCIUM 8.7 mg/dL (8.5-10.1); GFR 93.5; POTASSIUM 4.8 mmol/L (3.5-5.1)
[2021-06-09 07:00] VITALS: BP 129/70
--- NOTE | 2021-06-09 07:25 | PDOC ---
[employer] PROGRESS NOTE Date of Service DOS: DATE: 06/09/21 TIME: 07:23 Chief Complaint Chief Complaint Acute hypoxic respiratory failure COVID-19 pneumonia Mild proteinuria Hypernatremia Resolving DARIANA History of Present Illness History of Present Illness Mr Parson is a 55 year old male w/ PMHx significant for history of CAD status post stenting who present to ER with a history of 2 weeks cough and trouble breathing. Patient was not vaccinated for COVID-19. Patient was diagnosed with COVID-19 on , he was seen at the [place], was tested positive for COVID-19. Patient came in today because of worsening trouble breathing. His oxygen satura tion was 87% on room air. Patient denies history of diabetic, denies history of smoking denies history of COPD, not on oxygen at home. 05/20: No acute events overnight. Patient now requiring 8 L nasal cannula to saturate 97%. Patient is more short of breath. Remdesivir initiated. No concerns nursing at this time. 05/21: On 6 L nasal cannula saturating well. Still feeling more fatigued and just generalized illness. Some new onset upper abdominal pain, will start Pepcid and as needed GI cocktail. 05/22: He was on 4 L nasal cannula maintaining good saturations. Somewhat improved but overall feels fatigued still. Continue Covid protocol. Pulmonary consulted. 05/23: No OE. Saturating 98% on 8 L nasal cannula. Pulmonology was consulted and recommended to continue current management for Covid. Currently on IV Remdesivir. 05/24: Patient saturating 98% on 10 L nasal cannula. Still short of breath during speaking. CT abdomen pelvis ordered today to evaluate lesion on the kidney. Patient still does not know what is the cause of his renal failure. No history of hypertension or diabetes. Nephrology has been consulted. 05/25: No acute events overnight. Patient saturating 95% on 15 L nonrebreather. Switch IV fluids to D5W at 75 cc/h. 05/26: Afebrile. Vomited after paroxysmal coughing this morning. His mood is a little bit depressed. O2 saturation 96% on 15 L nonrebreather. 05/27: CT abdomen pelvis with no acute abdominal findings. Feel most nauseated today, vomiting after coughing. Feels weak and tired on 15 L. 05/28: Afebrile. No further vomiting. Still very weak requiring 15 L non- rebreather. PICC line placed for IV access 05/29: Afebrile. Still feeling weak. Now on 12 L nasal cannula oxygen with O2 saturations 91 to 94%. PICC functioning well. He is asking me to go home. K 5.3 05/30: Afebrile. Still profoundly weak. Asking if he can go home on 12 L of oxygen which is currently requiring with O2 saturations 91%. No chest pain, still very short of breath. And dry nose. 05/31: Afebrile. Pretty weak but his appetite is improving. O2 saturations 92% on 8 L today. No chest pain. He is eating [employer] brought in by his family. 06/01: Afebrile. Little stronger. O2 saturations 96% on 8 L nasal cannula today. Denies chest pain shortness of breath is improved abdomen cough is minimal. WBC 19. He has been on antibiotics over 14 days will try off antibiotics as he is making significant clinical improvements. 06/02: Patient seen and examined. Discussed with RN. Chart reviewed. 06/03: Patient was seen and examined. Seemed more alert than yesterday. Discussed with RN. Chart was reviewed. Spoke to on phone about plan. 06/04: Patient was seen and examined and seemed more alert than yesterday. He had moved out of the bed and to his chair. On 4L O2 at 97% O2 sat. Discussed with RN. Chart reviewed. 06/05: Patient seen and examined. Discussed O2 status with RN and difficulties with standing and maintaining oxygenation. Chart reviewed. Currently on 4L O2. Patient awake and responsive. 06/06: Patient seen and examined. Noted to be more alert and talkative than yesterday. He said he's feeling better than yesterday. Currently on 2.5L oxygen. Discussed yesterday's 6 min walk test and today's walk test with RN. Discussed sending patient home on PO antibiotics 06/07: Patient seen and examined. Awake and alert. Currently on 2.5L O2 with 98% O2 saturation. Patient states he would like to try the 6 min walk test again today. Discussed with RN. Chart reviewed. 06/08: Patient seen and examined. He said he was feeling alright and was not having any pain with breathing. Currently on 2L of O2. Discussed plans for 6 min walk test on Wednesday with RN. Chart reviewed. Seen sitting in chair today with O2 saturations 92% on 2 L nasal cannula. He had been discussing acute rehab with therapy over the weekend but he is not interested in this would like to go home with his . No chest pain minimal cough no shortness of breath. WBC 22.9. Plan to transition to p.o. steroids and have 6-minute walk today hopefully discharge. Vitals/I&O Vitals/I&O: Vital Signs Date Time Temp Pulse Resp B/P (MAP) Pulse Ox O2 Delivery O2 Flow Rate FiO2 06/09/21 03:00 98.4 84 18 128/80 (96) 97 Nasal Cannula 2.0 98.4 I & O 06/08/21 06/08/21 06/09/21 15:00 23:00 07:00 Intake Total 250 ml 240 ml Output Total 350 ml 300 ml 500 ml Balance -100 ml -300 ml -260 ml Physical Exam General: Alert, Oriented X3, Cooperative, No acute distress Heart: Regular rate, Normal S1, Normal S2 Lungs: Clear Abdomen: Normal bowel sounds, No tenderness Extremities: No clubbing, No edema Skin: No rashes, No breakdown Labs Labs: Laboratory Tests Test 06/09/21 05:30 White Blood Count 22.9 x10^3/uL (4.0-11.0) Red Blood Count 3.68 x10^6/uL (4.30-5.70) Hemoglobin 10.4 g/dL (13.0-17.5) Hematocrit 31.8 % (39.0-53.0) Mean Corpuscular Volume 87 fL (79-100) Mean Corpuscular Hemoglobin 28 pg (25-35) Mean Corpuscular Hemoglobin Concent 33 g/dL (31-37) Red Cell Distribution Width 14.6 % (11.5-14.5) Platelet Count 76 x10^3/uL (140-400) Neutrophils (%) (Auto) 96 % (31-73) Lymphocytes (%) (Auto) 1 % (24-48) Monocytes (%) (Auto) 2 % (0-9) Eosinophils (%) (Auto) 0 % (0-3) Basophils (%) (Auto) 0 % (0-3) Neutrophils # (Auto) 22.0 x10^3/uL (1.8-7.7) Lymphocytes # (Auto) 0.3 x10^3/uL (1.0-4.8) Monocytes # (Auto) 0.5 x10^3/uL (0.0-1.1) Eosinophils # (Auto) 0.0 x10^3/uL (0.0-0.7) Basophils # (Auto) 0.1 x10^3/uL (0.0-0.2) Sodium Level 136 mmol/L (136-145) Potassium Level 4.8 mmol/L (3.5-5.1) Chloride Level 103 mmol/L (98-107) Carbon Dioxide Level 27 mmol/L (21-32) Anion Gap 6 (6-14) Blood Urea Nitrogen 24 mg/dL (8-26) Creatinine 1.0 mg/dL (0.7-1.3) Estimated GFR (Cockcroft-Gault) 93.5 Glucose Level 132 mg/dL (70-99) Calcium Level 8.7 mg/dL (8.5-10.1) Assessment and Plan Assessmemt and Plan Problems Medical Problems: (1) Hypoxia Status: Acute (2) Pneumonia due to COVID-19 virus Status: Acute Comment Review of Relevant I have reviewed the following items fawn (where applicable) has been applied. Justifications for Admission Other Justification COVID-19 pneumonia FENG DE LA TORRE MD Jun 09, 2021 07:25
[2021-06-09] MEDS: DEXAMETHASONE 4 MG TABLET PO SCH (08:16)
[2021-06-09] MEDS: LACTOBACILLUS RHAMNOSUS GG 1 CAPSULE. PO SCH ×2 (08:17→20:18)
[2021-06-09] MEDS: THIAMINE 100 MG TABLET. PO SCH (08:17)
[2021-06-09] MEDS: ASCORBIC ACID 1,000 MG TABLET PO SCH ×3 (08:17→20:18)
[2021-06-09] MEDS: AMOXICILLIN/K CLAV 875/125MG TABLET. PO SCH ×2 (08:17→20:18)
[2021-06-09] MEDS: SERTRALINE 50 MG TABLET. PO SCH (08:18)
[2021-06-09] MEDS: ALLOPURINOL 100 MG TABLET. PO SCH ×2 (08:18→20:19)
[2021-06-09] MEDS: FAMOTIDINE 20 MG TABLET. PO SCH ×2 (08:18→20:19)
[2021-06-09] MEDS: ASPIRIN CHEWABLE 81 MG TABLET. PO SCH (08:18)
[2021-06-09] MEDS: ENOXAPARIN 40 MG/0.4 ML SYRINGE. SQ SCH (08:22)
[2021-06-09] MEDS: ZINC SULFATE 220 MG CAPSULE. PO SCH (08:24)
--- NOTE | 2021-06-09 10:26 | NUR ---
SW following. Discussed with RN, pt refusing rehab upon discharge. 6 min walk pending for discharge home. COVID-19 positive. [facility] - [facility]. SW will continue to follow.
[2021-06-09 11:00] VITALS: BP 131/70
[2021-06-09 15:00] VITALS: BP 112/69
[2021-06-09 19:00] VITALS: BP 113/63
--- NOTE | 2021-06-09 19:47 | NUR ---
Nurse's note: Unable to do 6 min walk today- RT aware. The patient is weak, gets short of breath, and desaturates upon standing up. PT to reassess patient.
[2021-06-09] MEDS: TOPIRAMATE 100 MG TABLET. PO SCH (20:19)
[2021-06-09] MEDS: HYDROcodone/APAP 7.5/325MG 1 TAB TABLET PO PRN (20:19)
[2021-06-09 23:20] VITALS: BP 112/69
[2021-06-10 02:39] VITALS: BP 112/66
[2021-06-10] MEDS: PANTOPRAZOLE 40 MG TABLET.DR. PO SCH (05:01)
[2021-06-10 06:18] LABS: BASO # 0.1 x10^3/uL (0.0-0.2); BASO % 1 % (0-3); EOS # 0.6 x10^3/uL (0.0-0.7); EOS % 3 % (0-3); HEMOGLOBIN 10.1 g/dL (13.0-17.5); LYMPH # 0.8 x10^3/uL (1.0-4.8); LYMPH % 4 % (24-48); MEAN CORPUSCULAR HEMOGLOBIN 28 pg (25-35); MEAN CORPUSCULAR HGB CONC 33 g/dL (31-37); MEAN CORPUSCULAR VOLUME 87 fL (79-100); MONO # 0.7 x10^3/uL (0.0-1.1); MONO % 4 % (0-9); NEUT # 16.7 x10^3/uL (1.8-7.7); NEUT % 89 % (31-73); PLATELET COUNT 67 x10^3/uL (140-400); RED BLOOD COUNT 3.57 x10^6/uL (4.30-5.70); RED CELL DISTRIBUTION WIDTH 14.5 % (11.5-14.5); WHITE BLOOD COUNT 18.9 x10^3/uL (4.0-11.0)
[2021-06-10 06:21] LABS: CALCIUM 8.4 mg/dL (8.5-10.1); GFR 93.5; POTASSIUM 3.9 mmol/L (3.5-5.1)
[2021-06-10 07:00] VITALS: BP 104/68
--- NOTE | 2021-06-10 08:26 | PDOC ---
PROGRESS NOTES Date of Service: DATE: 06/10/21 TIME: 08:26 Chief Complaint Chief Complaint Acute hypoxic respiratory failure COVID-19 pneumonia Mild proteinuria Hypernatremia Resolving DARIANA History of Present Illness History of Present Illness Mr Parson is a 55 year old male w/ PMHx significant for history of CAD status post stenting who present to ER with a history of 2 weeks cough and trouble breathing. Patient was not vaccinated for COVID-19. Patient was diagnosed with COVID-19 on , he was seen at the [facility], was tested positive for COVID-19. Patient came in today because of worsening trouble breathing. His oxygen saturation was 87% on room air. Patient denies history of diabetic, denies history of smoking denies history of COPD, not on oxygen at home. 05/20: No acute events overnight. Patient now requiring 8 L nasal cannula to saturate 97%. Patient is more short of breath. Remdesivir initiated. No concerns nursing at this time. 05/21: On 6 L nasal cannula saturating well. Still feeling more fatigued and just generalized illness. Some new onset upper abdominal pain, will start Pepcid and as needed GI cocktail. 05/22: He was on 4 L nasal cannula maintaining good saturations. Somewhat improved but overall feels fatigued still. Continue Covid protocol. Pulmonary consulted. 05/23: No OE. Saturating 98% on 8 L nasal cannula. Pulmonology was consulted and recommended to continue current management for Covid. Currently on IV Remdesivir. 05/24: Patient saturating 98% on 10 L nasal cannula. Still short of breath during speaking. CT abdomen pelvis ordered today to evaluate lesion on the kidney. Patient still does not know what is the cause of his renal failure. No history of hypertension or diabetes. Nephrology has been consulted. 05/25: No acute events overnight. Patient saturating 95% on 15 L nonrebreather. Switch IV fluids to D5W at 75 cc/h. 05/26: Afebrile. Vomited after paroxysmal coughing this morning. His mood is a little bit depressed. O2 saturation 96% on 15 L nonrebreather. 05/27: CT abdomen pelvis with no acute abdominal findings. Feel most nauseated today, vomiting after coughing. Feels weak and tired on 15 L. 05/28: Afebrile. No further vomiting. Still very weak requiring 15 L non- rebreather. PICC line placed for IV access 05/29: Afebrile. Still feeling weak. Now on 12 L nasal cannula oxygen with O2 saturations 91 to 94%. PICC functioning well. He is asking me to go home. K 5.3 05/30: Afebrile. Still profoundly weak. Asking if he can go home on 12 L of oxygen which is currently requiring with O2 saturations 91%. No chest pain, still very short of breath. And dry nose. 05/31: Afebrile. Pretty weak but his appetite is improving. O2 saturations 92% on 8 L today. No chest pain. He is eating [employer] brought in by his family. 06/01: Afebrile. Little stronger. O2 saturations 96% on 8 L nasal cannula today. Denies chest pain shortness of breath is improved abdomen cough is minimal. WBC 19. He has been on antibiotics over 14 days will try off antibiotics as he is making significant clinical improvements. 06/02: Patient seen and examined. Discussed with RN. Chart reviewed. 06/03: Patient was seen and examined. Seemed more alert than yesterday. Discussed with RN. Chart was reviewed. Spoke to on phone about plan. 06/04: Patient was seen and examined and seemed more alert than yesterday. He had moved out of the bed and to his chair. On 4L O2 at 97% O2 sat. Discussed with RN. Chart reviewed. 06/05: Patient seen and examined. Discussed O2 status with RN and difficulties with standing and maintaining oxygenation. Chart reviewed. Currently on 4L O2. Patient awake and responsive. 06/06: Patient seen and examined. Noted to be more alert and talkative than yesterday. He said he's feeling better than yesterday. Currently on 2.5L oxygen. Discussed yesterday's 6 min walk test and today's walk test with RN. Discussed sending patient home on PO antibiotics 06/07: Patient seen and examined. Awake and alert. Currently on 2.5L O2 with 98% O2 saturation. Patient states he would like to try the 6 min walk test again today. Discussed with RN. Chart reviewed. 06/08: Patient seen and examined. He said he was feeling alright and was not having any pain with breathing. Currently on 2L of O2. Discussed plans for 6 min walk test on Wednesday with RN. Chart reviewed. Seen sitting in chair today with O2 saturations 92% on 2 L nasal cannula. He had been discussing acute rehab with therapy over the weekend but he is not interested in this would like to go home with his . No chest pain minimal cough no shortness of breath. WBC 22.9. Plan to transition to p.o. steroids and have 6-minute walk today hopefully discharge. 06-10 Plan to transition to p.o. steroids and have 6-minute walk today / discharge D/W RN D/C PLANNING 33 MIN. Vitals Vitals Vital Signs Date Time Temp Pulse Resp B/P (MAP) Pulse Ox O2 Delivery O2 Flow Rate FiO2 06/10/21 02:39 97.9 67 18 112/66 (81) 95 Nasal Cannula 2.0 97.9 Physical Exam General: Alert, Oriented X3, Cooperative, No acute distress Heart: Regular rate, Normal S1, Normal S2 Lungs: Clear Abdomen: Normal bowel sounds, Soft, No tenderness Extremities: No clubbing, No edema Skin: No rashes, No breakdown Labs LABS Laboratory Tests Test 06/10/21 06:00 White Blood Count 18.9 x10^3/uL (4.0-11.0) Red Blood Count 3.57 x10^6/uL (4.30-5.70) Hemoglobin 10.1 g/dL (13.0-17.5) Hematocrit 31.0 % (39.0-53.0) Mean Corpuscular Volume 87 fL (79-100) Mean Corpuscular Hemoglobin 28 pg (25-35) Mean Corpuscular Hemoglobin Concent 33 g/dL (31-37) Red Cell Distribution Width 14.5 % (11.5-14.5) Platelet Count 67 x10^3/uL (140-400) Neutrophils (%) (Auto) 89 % (31-73) Lymphocytes (%) (Auto) 4 % (24-48) Monocytes (%) (Auto) 4 % (0-9) Eosinophils (%) (Auto) 3 % (0-3) Basophils (%) (Auto) 1 % (0-3) Neutrophils # (Auto) 16.7 x10^3/uL (1.8-7.7) Lymphocytes # (Auto) 0.8 x10^3/uL (1.0-4.8) Monocytes # (Auto) 0.7 x10^3/uL (0.0-1.1) Eosinophils # (Auto) 0.6 x10^3/uL (0.0-0.7) Basophils # (Auto) 0.1 x10^3/uL (0.0-0.2) Sodium Level 137 mmol/L (136-145) Potassium Level 3.9 mmol/L (3.5-5.1) Chloride Level 103 mmol/L (98-107) Carbon Dioxide Level 27 mmol/L (21-32) Anion Gap 7 (6-14) Blood Urea Nitrogen 22 mg/dL (8-26) Creatinine 1.0 mg/dL (0.7-1.3) Estimated GFR (Cockcroft-Gault) 93.5 Glucose Level 100 mg/dL (70-99) Calcium Level 8.4 mg/dL (8.5-10.1) Assessment and Plan Assessmemt and Plan Problems Medical Problems: (1) Hypoxia Status: Acute (2) Pneumonia due to COVID-19 virus Status: Acute Comment Review of Relevant I have reviewed the following items fawn (where applicable) has been applied. Labs Laboratory Tests Test 06/09/21 05:30 06/10/21 06:00 White Blood Count 22.9 x10^3/uL (4.0-11.0) 18.9 x10^3/uL (4.0-11.0) Red Blood Count 3.68 x10^6/uL (4.30-5.70) 3.57 x10^6/uL (4.30-5.70) Hemoglobin 10.4 g/dL (13.0-17.5) 10.1 g/dL (13.0-17.5) Hematocrit 31.8 % (39.0-53.0) 31.0 % (39.0-53.0) Mean Corpuscular Volume 87 fL (79-100) 87 fL (79-100) Mean Corpuscular Hemoglobin 28 pg (25-35) 28 pg (25-35) Mean Corpuscular Hemoglobin Concent 33 g/dL (31-37) 33 g/dL (31-37) Red Cell Distribution Width 14.6 % (11.5-14.5) 14.5 % (11.5-14.5) Platelet Count 76 x10^3/uL (140-400) 67 x10^3/uL (140-400) Neutrophils (%) (Auto) 96 % (31-73) 89 % (31-73) Lymphocytes (%) (Auto) 1 % (24-48) 4 % (24-48) Monocytes (%) (Auto) 2 % (0-9) 4 % (0-9) Eosinophils (%) (Auto) 0 % (0-3) 3 % (0-3) Basophils (%) (Auto) 0 % (0-3) 1 % (0-3) Neutrophils # (Auto) 22.0 x10^3/uL (1.8-7.7) 16.7 x10^3/uL (1.8-7.7) Lymphocytes # (Auto) 0.3 x10^3/uL (1.0-4.8) 0.8 x10^3/uL (1.0-4.8) Monocytes # (Auto) 0.5 x10^3/uL (0.0-1.1) 0.7 x10^3/uL (0.0-1.1) Eosinophils # (Auto) 0.0 x10^3/uL (0.0-0.7) 0.6 x10^3/uL (0.0-0.7) Basophils # (Auto) 0.1 x10^3/uL (0.0-0.2) 0.1 x10^3/uL (0.0-0.2) Sodium Level 136 mmol/L (136-145) 137 mmol/L (136-145) Potassium Level 4.8 mmol/L (3.5-5.1) 3.9 mmol/L (3.5-5.1) Chloride Level 103 mmol/L (98-107) 103 mmol/L (98-107) Carbon Dioxide Level 27 mmol/L (21-32) 27 mmol/L (21-32) Anion Gap 6 (6-14) 7 (6-14) Blood Urea Nitrogen 24 mg/dL (8-26) 22 mg/dL (8-26) Creatinine 1.0 mg/dL (0.7-1.3) 1.0 mg/dL (0.7-1.3) Estimated GFR (Cockcroft-Gault) 93.5 93.5 Glucose Level 132 mg/dL (70-99) 100 mg/dL (70-99) Calcium Level 8.7 mg/dL (8.5-10.1) 8.4 mg/dL (8.5-10.1) Laboratory Tests Test 06/10/21 06:00 White Blood Count 18.9 x10^3/uL (4.0-11.0) Red Blood Count 3.57 x10^6/uL (4.30-5.70) Hemoglobin 10.1 g/dL (13.0-17.5) Hematocrit 31.0 % (39.0-53.0) Mean Corpuscular Volume 87 fL (79-100) Mean Corpuscular Hemoglobin 28 pg (25-35) Mean Corpuscular Hemoglobin Concent 33 g/dL (31-37) Red Cell Distribution Width 14.5 % (11.5-14.5) Platelet Count 67 x10^3/uL (140-400) Neutrophils (%) (Auto) 89 % (31-73) Lymphocytes (%) (Auto) 4 % (24-48) Monocytes (%) (Auto) 4 % (0-9) Eosinophils (%) (Auto) 3 % (0-3) Basophils (%) (Auto) 1 % (0-3) Neutrophils # (Auto) 16.7 x10^3/uL (1.8-7.7) Lymphocytes # (Auto) 0.8 x10^3/uL (1.0-4.8) Monocytes # (Auto) 0.7 x10^3/uL (0.0-1.1) Eosinophils # (Auto) 0.6 x10^3/uL (0.0-0.7) Basophils # (Auto) 0.1 x10^3/uL (0.0-0.2) Sodium Level 137 mmol/L (136-145) Potassium Level 3.9 mmol/L (3.5-5.1) Chloride Level 103 mmol/L (98-107) Carbon Dioxide Level 27 mmol/L (21-32) Anion Gap 7 (6-14) Blood Urea Nitrogen 22 mg/dL (8-26) Creatinine 1.0 mg/dL (0.7-1.3) Estimated GFR (Cockcroft-Gault) 93.5 Glucose Level 100 mg/dL (70-99) Calcium Level 8.4 mg/dL (8.5-10.1) Microbiology 05/18/21 Blood Culture - Final, Complete NO GROWTH AFTER 5 DAYS Medications Current Medications Dexamethasone Sodium Phosphate (Decadron) 10 mg 1X ONCE IVP Last administered on 05/18/21at 16:02; Start 05/18/21 at 15:30; Stop 05/18/21 at 15:31; Status DC Ceftriaxone Sodium (Rocephin) 1 gm 1X ONCE IVP Last administered on 05/18/21at 16:04; Start 05/18/21 at 15:30; Stop 05/18/21 at 15:31; Status DC Azithromycin 250 ml @ 250 mls/hr 1X ONCE IV Last administered on 05/18/21at 16:11; Start 05/18/21 at 15:30; Stop 05/18/21 at 16:29; Status DC Ondansetron HCl (Zofran) 4 mg PRN Q8HRS PRN IVP NAUSEA/VOMITING; Start 05/18/21 at 16:00; Stop 05/19/21 at 15:59; Status DC Albuterol Sulfate (Ventolin Neb Soln) 2 mg Q4HRS W/A PRN INH wheezing; Start 05/18/21 at 21:30; Stop 05/18/21 at 21:42; Status DC Allopurinol (Zyloprim) 100 mg BID PO Last administered on 06/09/21at 20:19; Start 05/19/21 at 09:00 Amlodipine Besylate (Norvasc) 10 mg DAILY PO Last administered on 06/09/21at 09:27; Start 05/19/21 at 09:00 Aspirin (Aspirin Chewable) 81 mg DAILY PO Last administered on 06/09/21at 08:18; Start 05/19/21 at 09:00 Sertraline HCl (Zoloft) 50 mg DAILY PO Last administered on 06/09/21at 08:18; Start 05/19/21 at 09:00 Non-Formulary Medication (Melatonin ) 1 cap QHS PO ; Start 05/19/21 at 21:00; Status UNV Topiramate (Topamax) 150 mg HS PO Last administered on 06/09/21 20:19; Start 05/19/21 at 21:00 Guaifenesin (MUCINEX ER with DM) 1 tab PRN BID PRN PO COUGH, 2nd CHOICE Last ad ministered on 05/21/21 10:41; Start 05/18/21 at 21:45 Albuterol Sulfate (Ventolin Hfa) 2 puff PRN Q4HRS PRN INH SOA Last administered on 05/18/21 22:49; Start 05/18/21 at 21:45 Acetaminophen/ Hydrocodone Bitart (Lortab 7.5/325) 1 tab PRN Q6HRS PRN PO MODE RATE - SEVERE PAIN Last administered on 06/09/21 20:19; Start 05/18/21 at 22:30 Ascorbic Acid (Vitamin C) 3,000 mg TID PO Last administered on 06/09/21 20:18; Start 05/19/21 at 09:00 Methylprednisolone Sodium Succinate (SOLU-Medrol 125MG VIAL) 125 mg Q8HRS IV Last administered on 05/30/21 06:20; Start 05/19/21 at 08:00; Stop 05/30/21 at 10:06; Status DC Thiamine Mononitrate (Vitamin B-1) 300 mg DAILY PO Last administered on 06/09/21 08:17; Start 05/19/21 at 09:00 Zinc Sulfate (Orazinc) 220 mg DAILY PO Last administered on 06/09/21 08:24; Start 05/19/21 at 09:00 Sennosides (Senna) 17.2 mg PRN BID PRN PO CONSTIPATION Last administered on 06/07/21 20:45; Start 05/19/21 at 08:00 Docusate Sodium (Colace) 100 mg PRN DAILY PRN PO HARD STOOLS Last administered on 06/02/21 09:59; Start 05/19/21 at 08:00 Ondansetron HCl (Zofran) 4 mg PRN Q6HRS PRN IVP NAUSEA/VOMITING Last administered on 06/07/21 20:45; Start 05/19/21 at 08:00 Dextrose (Dextrose 50%-Water Syringe) 12.5 gm PRN Q15MIN PRN IV SEE COMMENTS; Start 05/19/21 at 08:00 Acetaminophen (Tylenol) 650 mg PRN Q4HRS PRN PO TEMP OVER 100.4F OR MILD PAIN; Start 05/19/21 at 08:00 Enoxaparin Sodium (Lovenox 40mg Syringe) 40 mg Q24H SQ Last administered on 06/09/21at 08:22; Start 05/19/21 at 09:00 Prochlorperazine Edisylate (Compazine) 10 mg PRN Q6HRS PRN IV NAUSEA/VOMITING - 2ND CHOICE Last administered on 06/04/21at 18:09; Start 05/19/21 at 08:00 Pantoprazole Sodium (Protonix) 40 mg DAILYAC PO Last administered on 06/10/21at 05:01; Start 05/19/21 at 14:00 Remdesivir 200 mg/ Sodium Chloride 210 ml @ 210 mls/hr 1X ONCE IV Last administered on 05/20/21at 12:04; Start 05/20/21 at 12:00; Stop 05/20/21 at 12:59; Status DC Remdesivir 100 mg/ Sodium Chloride 230 ml @ 460 mls/hr Q24H IV Last administered on 05/24/21at 17:12; Start 05/21/21 at 12:00; Stop 05/24/21 at 12:29; Status DC Guaifenesin/ Codeine Phosphate (Robitussin Ac) 5 ml PRN Q6HRS PRN PO COUGH, 1st CHOICE Last administered on 06/02/21at 12:59; Start 05/21/21 at 13:00 Piperacillin Sod/ Tazobactam Sod (Zosyn Per Pharmacy) 1 each PRN DAILY PRN MC SEE COMMENTS; Start 05/21/21 at 13:00; Status Cancel Azithromycin (Zithromax) 500 mg DAILY PO Last administered on 05/23/21at 08:57; Start 05/21/21 at 14:00; Stop 05/24/21 at 08:35; Status DC Sodium Chloride 1,000 ml @ 75 mls/hr [id number] IV Last administered on 05/22/21at 05:59; Start 05/21/21 at 13:30; Stop 05/23/21 at 09:10; Status DC Piperacillin Sod/ Tazobactam Sod 3.375 gm/Sodium Chloride 50 ml @ 100 mls/hr Q6HRS IV Last administered on 05/24/21at 06:13; Start 05/21/21 at 13:30; Stop 05/24/21 at 08:16; Status DC Lactobacillus Rhamnosus (Culturelle) 1 cap BID PO Last administered on at 20:18; Start 05/21/21 at 21:00 Famotidine (Pepcid) 20 mg BID PO Last administered on 06/09/21at 20:19; Start 05/21/21 at 14:00 Multi-Ingredient Mouthwash/Gargle (Gi Cocktail) 20 ml PRN QID PRN PO CHEST PAIN Last administered on 06/07/21at 20:45; Start 05/21/21 at 13:15 Ceftriaxone Sodium (Rocephin) 1 gm Q24H IVP Last administered on 05/31/21at 12:29; Start 05/24/21 at 12:00; Stop 06/01/21 at 08:39; Status DC Azithromycin 500 mg/Sodium Chloride 250 ml @ 250 mls/hr Q24H IV Last administered on 05/31/21at 09:45; Start 05/24/21 at 09:00; Stop 05/31/21 at 15:12; Status DC Sodium Chloride 1,000 ml @ 75 mls/hr [id number] IV Last administered on 05/25/21at 08:54; Start 05/25/21 at 08:15; Stop 05/25/21 at 10:34; Status DC Dextrose 1,000 ml @ 100 mls/hr Q10H IV Last administered on 05/30/21at 09:46; Start 05/25/21 at 10:45; Stop 05/30/21 at 11:11; Status DC Methylprednisolone Sodium Succinate (SOLU-Medrol 125MG VIAL) 60 mg Q8HRS IV Last administered on 06/01/21at 05:47; Start 05/30/21 at 14:00; Stop 06/01/21 at 07:08; Status DC Sodium Chloride ([place] Saline Nasal) 1 gladys PRN DAILY PRN NS NASAL CONGESTION Last administered on 05/31/21at 09:45; Start 05/30/21 at 12:00 Methylprednisolone Sodium Succinate (SOLU-Medrol 40MG VIAL) 40 mg Q8HRS IV Last administered on 06/02/21at 06:03; Start 06/01/21 at 14:00; Stop 06/02/21 at 09:37; Status DC Methylprednisolone Sodium Succinate (SOLU-Medrol 40MG VIAL) 40 mg BID IV Last administered on 06/08/21at 20:43; Start 06/02/21 at 21:00; Stop 06/09/21 at 07:23; Status DC Ketorolac Tromethamine (Toradol 30mg Vial) 30 mg PRN Q6HRS PRN IV INFLAMMATION Last administered on 06/05/21at 18:26; Start 06/02/21 at 11:30; Stop 06/07/21 at 11:29; Status DC Amino Acids/ Electrolytes/ Dextrose 1,000 ml @ 80 mls/hr [id number] IV Last administered on 06/06/21at 03:09; Start 06/05/21 at 14:45; Stop 06/06/21 at 15:49; Status DC Amoxicillin/ Clavulanate Potassium (Augmentin 875/ 125mg) 1 tab BID PO Last administered on 06/09/21at 20:18; Start 06/06/21 at 14:00 Dexamethasone (Decadron) 4 mg DAILYWBKFT PO Last administered on 06/09/21at 08:16; Start 06/09/21 at 08:00 Active Scripts Active Reported Hydrocodone-Acetamin 7.5-325 (Hydrocodone/Acetaminophen) 1 Each Tablet 1 Each PO Q6HRS PRN [percocet] Unknown Strength Unknown Dose [tramadol] Unknown Strength Unknown Dose Melatonin 10 Mg Capsule 1 Cap PO QHS 30 Days Topiramate 50 Mg Tablet 3 Tab PO HS 30 Days Zoloft (Sertraline Hcl) 50 Mg Tablet 1 Tab PO DAILY Amlodipine Besylate 10 Mg Tablet 10 Mg PO DAILY Allopurinol 100 Mg Tablet 1 Tab PO BID Tessalon Perle (Benzonatate) 100 Mg Capsule 1 Cap PO DAILY Proair Hfa Inhaler (Albuterol Sulfate) 8.5 Gm Hfa.aer.ad 2 Puff IH PRN Q4-6HRS PRN 21 Days Aspirin 81 Mg Tab.chew 81 Mg PO DAILY Vitals/I & O Vital Sign - Last 24 Hours 06/09/21 06/09/21 06/09/21 06/09/21 09:27 11:00 15:00 19:00 Temp 97.6 97.9 97.7 97.6 97.9 97.7 Pulse 84 98 108 98 Resp 24 20 20 B/P (MAP) 129/70 131/70 (90) 112/69 (83) 113/63 (80) Pulse Ox 94 93 97 O2 Delivery Room Air Nasal Cannula Nasal Cannula O2 Flow Rate 2.0 2.0 06/09/21 06/09/21 06/09/21 06/09/21 20:00 20:19 20:49 23:20 Temp 97.0 97.0 Pulse 104 Resp 18 18 18 B/P (MAP) 112/69 (83) Pulse Ox 93 93 95 O2 Delivery Nasal Cannula Nasal Cannula Nasal Cannula Nasal Cannula O2 Flow Rate 2.0 2.0 2.0 2.0 06/10/21 02:39 Temp 97.9 97.9 Pulse 67 Resp 18 B/P (MAP) 112/66 (81) Pulse Ox 95 O2 Delivery Nasal Cannula O2 Flow Rate 2.0 Intake and Output 06/09/21 06/09/21 06/10/21 15:00 23:00 07:00 Intake Total 300 ml 4000 ml 400 ml Output Total 450 ml 500 ml 400 ml Balance -150 ml 3500 ml 0 ml Justicifation of Admission Dx: Justifications for Admission: Justification of Admission Dx: Yes Comminuty Aquired Pneumonia: Hypoxemia KALLI PATRICIA MD Jun 10, 2021 08:26
[2021-06-10] MEDS: FAMOTIDINE 20 MG TABLET. PO SCH (08:55)
[2021-06-10] MEDS: THIAMINE 100 MG TABLET. PO SCH (08:55)
[2021-06-10] MEDS: LACTOBACILLUS RHAMNOSUS GG 1 CAPSULE. PO SCH (08:55)
[2021-06-10] MEDS: ZINC SULFATE 220 MG CAPSULE. PO SCH (08:55)
[2021-06-10] MEDS: DEXAMETHASONE 4 MG TABLET PO SCH (09:00)
[2021-06-10] MEDS: ASCORBIC ACID 1,000 MG TABLET PO SCH ×2 (09:00→14:00)
[2021-06-10] MEDS: ALLOPURINOL 100 MG TABLET. PO SCH (09:00)
[2021-06-10] MEDS: ASPIRIN CHEWABLE 81 MG TABLET. PO SCH (09:01)
[2021-06-10] MEDS: AMOXICILLIN/K CLAV 875/125MG TABLET. PO SCH (09:01)
[2021-06-10] MEDS: SERTRALINE 50 MG TABLET. PO SCH (09:01)
[2021-06-10] MEDS: ENOXAPARIN 40 MG/0.4 ML SYRINGE. SQ SCH (09:01)
--- NOTE | 2021-06-10 10:39 | NUR ---
PATRICE following. Discussed with RN, 6 minute walk pending to determine if pt can discharge home today, and what oxygen requirements will be. Pt currently on room air. PATRICE will continue to follow. Addendum: 06/10/21 at 1453 by SHOBHA IBRAHIM Pt needing 0L at rest and 6L with exertion per 6 minute walk. PATRICE faxed oxygen referral to [facility] (ph: [phone] x [phone], fax: [phone]), awaiting tank to be delivered from the [facility]. PATRICE faxed home health discharge orders to pt's ALVINA Reilly at fax: [phone]. Discussed with pt's Tony Lujan. Pt's transporting pt home. Pt is a high risk readmission for declining SNF upon discharge.
[2021-06-10 11:00] VITALS: BP 118/71
[2021-06-10] MEDS ORDERED: DEXA4TAB63 PO (11:36)
[2021-06-10] MEDS ORDERED: ZINC220C5 PO (11:36)
[2021-06-10] MEDS ORDERED: GUAI-108 PO (11:36)
[2021-06-10] MEDS ORDERED: LACT1CAP19 PO (11:36)
[2021-06-10] MEDS ORDERED: ASCO100019 PO (11:36)
[2021-06-10] MEDS ORDERED: DOCU100C28 PO (11:36)
[2021-06-10] MEDS ORDERED: AMOX1TAB11 PO (11:36)
[2021-06-10] MEDS ORDERED: ACET325T21 PO (11:36)
[2021-06-10] MEDS ORDERED: THIA100T22 PO (11:36)
--- NOTE | 2021-06-10 11:38 | SNU/HH DC ---
DISCHARGE WITH HOME HEALTH DISCHARGE INFORMATION: Discharge Date: Jun 10, 2021 Final Diagnosis: Problems Medical Problems: (1) Hypoxia Status: Acute (2) Pneumonia due to COVID-19 virus Status: Acute Condition on Discharge: Stable CODE STATUS: Code Status: Full HOME HEALTH: Face to Face: I certify this patient is under my care and that I, or a nurse practitioner or physician's melter assistant working with me, had a face to face encounter that meets the physician face to face encounter requirements with this patient on []. Medical Complications: Other (COVID) [facility] For: Assess & Educate Safety, Assess/Skilled Observatio, Medication Management RN For Eval/Treatment: Yes Physical Therapy For: Evalulation/Treatment Occupational Therapy For: Evaluation/Treatment Home Health Aide For: Self-care SOFTWARE TEST AND VALIDATION ENGINEER For: Community Resources Pt Meets Homebound Status: Limited distance walking POST DISCHARGE ORDERS: Activity Instructions for Disc: Activity as tolerated DIET AFTER DISCHARGE: Cardiac CHECKS AFTER DISCHARGE: Checks after discharge: Check blood press - daily, Check blood sugar, ac/hs, Check your Temp as needed FOLLOW-UP: PCP to follow Home Health: SEE YOUR PCP IN 3-7 DAYS TREATMENT/EQUIPMENT ORDERS: Adaptive Equipment Issued: Front wheeled walker Discharge Respiratory Equipmen: Oxygen CERTIFICATION STATEMENT: Certification Statement: Certification Statement: Based on the above finding, I certify that this patient is confined to the home and needs intermittent halfway care, physical therapy and/or speech therapy, or continues to need occupational therapy.~ This patient is under my care, and I have initiated the establishment of the plan of care.~ This patient will be followed by myself or a community physician who will periodically review the plan of care. Home Meds Active Scripts Ascorbic Acid (VITAMIN C) 1,000 Mg Tablet, 3000 MG PO TID for SUPPLEMENT for 30 Days, #270 TAB Prov:KALLI PATRICIA MD 06/10/21 Thiamine Mononitrate (VITAMIN B-1) 100 Mg Tablet, 300 MG PO DAILY for SUPPLEMENT for 30 Days, #90 TAB Prov:KALLI PATRICIA MD 06/10/21 Dexamethasone (Decadron) 4 Mg Tablet, 4 MG PO DAILYWBKFT for COVID for 10 Days, #10 TAB Prov:KALLI PARTICIA MD 06/10/21 Lactobacillus Rhamnosus Gg (CULTURELLE) 1 Each Cap.sprink, 1 CAP PO BID for SUPPLEMENT for 30 Days, #60 CAP Prov:KALLI PATRICIA MD 06/10/21 Docusate Sodium (DOCUSATE SODIUM) 100 Mg Capsule, 100 MG PO PRN DAILY PRN for HARD STOOLS for 30 Days, #60 CAP Prov:KALLI PATRICIA MD 06/10/21 Guaifenesin/Dextromethorphan (MUCINEX DM ER 600-30 MG TABLET) 1 Each Tab.er.12h, 1 TAB PO PRN BID PRN for COUGH, 2nd CHOICE for 30 Days, #60 TAB.SR Prov:KALLI PATRICIA MD 06/10/21 Zinc Sulfate (Zinc Sulfate) 50 Mg Capsule, 220 MG PO DAILY for SUPPLEMENT for 30 Days, #132 CAP Prov:KALLI PATRICIA MD 06/10/21 Acetaminophen (ACETAMINOPHEN) 325 Mg Tablet, 650 MG PO PRN Q4HRS PRN for TEMP OVER 100.4F OR MILD PAIN for 14 Days, #60 TAB Prov:KALLI PATRICIA MD 06/10/21 Amoxicillin/Potassium Clav (AMOX TR-K CLV 875-125 MG TAB) 1 Each Tablet, 1 TAB PO BID for INFECTION for 7 Days, #14 TAB Prov:KALLI PATRICIA MD 06/10/21 Reported Medications Hydrocodone/Acetaminophen (Hydrocodone-Acetamin 7.5-325) 1 Each Tablet, 1 EACH PO Q6HRS PRN for PAIN, TAB 05/18/21 [percocet] Unknown Strength No Conflict Check 05/18/21 [tramadol] Unknown Strength No Conflict Check, for pain 05/18/21 Melatonin (MELATONIN) 10 Mg Capsule, 1 CAP PO QHS for sleep for 30 Days, #30 CAP 0 Refills 05/18/21 Topiramate (TOPIRAMATE) 50 Mg Tablet, 3 TAB PO HS for headache for 30 Days, #90 TAB 0 Refills 05/18/21 Sertraline Hcl (ZOLOFT) 50 Mg Tablet, 1 TAB PO DAILY for mood swings, #30 TAB 2 Refills 05/18/21 Amlodipine Besylate (AMLODIPINE BESYLATE) 10 Mg Tablet, 10 MG PO DAILY for BP, TAB 05/18/21 Allopurinol (ALLOPURINOL) 100 Mg Tablet, 1 TAB PO BID for gout, #30 TAB 5 Refills 8/8/21 Benzonatate (TESSALON PERLE) 100 Mg Capsule, 1 CAP PO DAILY for cough, #21 CAP 05/18/21 Albuterol Sulfate (PROAIR HFA INHALER) 8.5 Gm Hfa.aer.ad, 2 PUFF IH PRN Q4-6HRS PRN for wheezing for 21 Days, #1 INHALER 0 Refills 05/18/21 Aspirin (ASPIRIN) 81 Mg Tab.chew, 81 MG PO DAILY for "heart", TAB.CHEW 05/18/21 KALLI PATRICIA MD Jun 10, 2021 11:38
[2021-06-10 15:00] VITALS: BP 117/73
[2021-06-10 19:20] VITALS: BP 114/65
--- NOTE | 2021-06-10 20:35 | NUR ---
Patient's belongings bagged up, assisted with putting his hoodie and plaid flannel pants on, he stated that he brought in his personal inhaler, so this was given to him. remains sitting up in chair, awaiting his spouse to arrive in ED parking lot to pick him up.
--- NOTE | 2021-06-10 21:06 | NUR ---
Patient transported per w/c, portable 02, to ED entrance to meet spouse for pick-up. She confirmed to this health underwriter that she did have patient's cell phone. Did connect patient's n/c to the tank spouse brought with her.pt had some trouble transferring from w/c to backseat of van, bag of belongings accompany pt,
== END 2021-06-10 20:55 | disposition home or self-care (01) | DRG 177 ==
LOC: ER 14:39 → ED HOLD 15:54 → 5 NORTH 19:56
PROVIDERS: ADMIT Family Medicine; ATTEND Family Medicine
PROC: XW033E5 Introduction of Remdesivir Anti-infective into Peripheral Vein, Percutaneous Approach, New Technology Group 5 (ICD-10-PCS; principal; 2021-05-20)
PROC: 02HV33Z Insertion of Infusion Device into Superior Vena Cava, Percutaneous Approach (ICD-10-PCS; 2021-05-24)
DX: U07.1 COVID-19 (principal); J12.82 Pneumonia due to coronavirus disease 2019; J80 Acute respiratory distress syndrome; N17.0 Acute kidney failure with tubular necrosis; E87.0 Hyperosmolality and hypernatremia; E66.9 Obesity, unspecified; E87.5 Hyperkalemia; F32.9 Major depressive disorder, single episode, unspecified; F41.9 Anxiety disorder, unspecified; G47.00 Insomnia, unspecified; I25.10 Atherosclerotic heart disease of native coronary artery without angina pectoris; M10.9 Gout, unspecified; R79.89 Other specified abnormal findings of blood chemistry; R31.9 Hematuria, unspecified; N18.9 Chronic kidney disease, unspecified; I12.9 Hypertensive chronic kidney disease with stage 1 through stage 4 chronic kidney disease, or unspecified chronic kidney disease; Z82.49 Family history of ischemic heart disease and other diseases of the circulatory system; Z95.5 Presence of coronary angioplasty implant and graft; Z88.8 Allergy status to other drugs, medicaments and biological substances
CPT/HCPCS: 36415; 36569; 71045; 74176; 76770; 80048; 80053; 81001; 82962; 83036; 83605; 83735; 83880; 84100; 84484; 85007; 85025; 87040; 93005; 94618; 94760; 96365; 96375; G0238; J0456; J0696; J0780; J1100; J1650; J1885; J2405; J2543; J2920; J2930; J3490; J7030; J7050; J7060; 97110-GP; 97116-GP; 97530-GO; 97530-GP; 97535-GO; 99285-25; G0378